=== PATIENT | female | born 1945 | race Caucasian/White ===

== ENCOUNTER 2022-03-30 10:03 | Observation (INO) ==
--- NOTE | 2022-03-30 11:09 | Emergency Department Note ---
Impression & Plan Chest pain, Hypoxia, Elevated troponin I level ED Provider Note NAME: HARLEY HERNADEZ AGE: 77 SEX: F : 1945 ARRIVES VIA: Ambulance EMS INFORMANT: Patient, EMS ED PROVIDER(S): Raul Chanel DO CHIEF COMPLAINT: Chest pain HPI: The patient is a 77-year-old female who presented to the emergency depart [facility] by ambulance for evaluation of chest pain. The patient was at rehab. She states she was not overly exerting herself but she started developing chest pain. The patient also notes shortness of breath. The patient has a history of underlying dementia but answers questions well. She states that this time she has no chest pain. She does complain of some shortness of breath. She states that she wears oxygen at night. She has a history of atrial fibrillation. She does take blood thinners every day. The patient states that she received aspirin as well as nitroglycerin prior to arrival. She denies having any fever. She does complain of a slight cough. She denies having any abdominal pain. She does complain of lower extremity swelling. She states this is not new for her. ROS: See above HPI for pertinent positives & negatives. A total of 10 systems reviewed and were otherwise negative. PAST MEDICAL HISTORY: See Below PAST SURGICAL HISTORY: See Below FAMILY HISTORY: See Below SOCIAL HISTORY: See Below HOME MEDICATIONS: See Below ALLERGIES: See Below VITALS: See Below PHYSICAL EXAMINATION: GENERAL: The patient is awake but somewhat listless appearing. She does not appear to be uncomfortable. EYES: The conjunctivae are clear. The pupils are round and reactive. EARS, NOSE, MOUTH AND THROAT: The nose is without any evidence of any deformity. NECK: The neck is nontender and supple. RESPIRATORY: Shallow respirations were noted. Rales were noted at both bases. CARDIOVASCULAR: Irregular heart sounds were noted auscultation. There is no def inite murmur. GASTROINTESTINAL: The abdomen is soft. Abdomen is nontender. MUSCULOSKELETAL/EXTREMITIES: There is no evidence of gross deformity full range of motion is noted in the hips and shoulders. SKIN: Pedal edema was noted bilaterally. Skin was warm and dry. NEUROLOGIC: Patient is awake alert and oriented x3. MEDICAL DECISION MAKING: The patient is a 77-year-old female who presented to the emergency department for an evaluation of chest discomfort. The patient was at rehab when this started. She arrived at the emergency department by ambulance. She received aspirin and nitroglycerin prior to arrival. The patient was hypoxic upon arrival. I discussed the patient's laboratory and radiographic studies with her. She was found to have an elevated troponin. I discussed her condition with the [facility]. They have agreed to evaluate the patient in the emergency department for further management and disposition. Triage Nursing notes reviewed. Prior medical records reviewed Vital Signs: reviewed and remarkable for elevated blood pressure and hypoxia. Differential diagnosis: Cardiac ischemia, aortic dissection, pulmonary embolism, pneumothorax, pneumonia, pericarditis, myocarditis, esophageal rupture, GERD, cholecystitis, pancreatitis, musculoskeletal, as well as other pathologies. ER treatment provided: See below Diagnostics interpreted by me: ECG: EKG was obtained in the emergency department. My interpretation is atrial fibrillation at 125 bpm. There were no PVCs noted. Nonspecific ST segment depressions were noted throughout. No previous tracing was available. Cardiac Monitoring: An order was placed for continuous cardiac monitoring. The monitor shows a rate of 60 bpm with atrial fibrillation. Laboratory studies: As stated above and show below. Imaging studies: See below Consultation(s): I discussed this case with Isaura who is on-call for the [facility] Past Med/Surg History Medical History (Updated 03/30/22 @ 17:20 by Raul Chanel DO) Abdominal hernia As a child, ? age 5 Atrial fibrillation CHF (congestive heart failure) Chronic kidney disease Dementia Depression Diabetes mellitus Gastroesophageal reflux Hyperlipidemia Hypertension Hypothyroid Pacemaker Seizures Surgical History (Updated 03/30/22 @ 14:05 by Britni Paredes PA-C) H/O: hysterectomy History of appendectomy Hx of tonsillectomy Family History (Updated 03/30/22 @ 14:02 by Britni Paredes PA-C) Mother Alzheimer disease Father Alzheimer disease Brother Cerebral aneurysm Social History (Updated 03/30/22 @ 14:06 by Britni Paredes PA-C) Smoking Status: Former smoker Age Started Using Tobacco: 21; Age Quit Using Tobacco: 40; Hx Alcohol Use: No Hx Substance Use: No Preferred Language: Tongan Communication Ability: Effective Discharge Door Operator Required: No Beliefs That Will Affect Care: None Current Living Situation: [facility] Current Living Situation Comment: [facility] Other Information That Helps Us Care for You: No Feels Safe at Home: Yes Safety Concerns: Feels Safe At This Time Assistive Devices: Denture - Upper, Denture - Lower, Glasses, Oxygen - Continuous and Walker Allergies Allergies Allergy/AdvReac Type Severity Reaction Status Date / Time enalaprilat [From Vasotec] Allergy Mild Redness of Verified 03/30/22 14:49 Skin Home Meds Home Medications Medication Instructions Recorded Confirmed albuterol sulfate 90 mcg/actuation 1 puff inhalation QID PRN 03/30/22 03/30/22 aerosol inhaler (ProAir HFA) Shortness Of Breath apixaban 5 mg tablet (Eliquis) 5 mg PO BID 03/30/22 03/30/22 aspirin 81 mg chewable tablet 81 mg PO DAILY 03/30/22 03/30/22 atorvastatin 40 mg tablet 40 mg PO HS 03/30/22 03/30/22 budesonide 160 mcg-glycopyr 9 2 inh inhalation BID 03/30/22 03/30/22 mcg-formot 4.8 mcg/actuation HFA inhaler (Breztri Aerosphere) calcium carb-vit D3-minerals 600 1 tab PO DAILY 03/30/22 03/30/22 mg calcium-200 unit tablet (Calcium 600 + Minerals) diltiazem HCl 180 mg 180 mg PO BID 03/30/22 03/30/22 tablet,extended release 24 hr donepezil 5 mg tablet 5 mg PO DAILY 03/30/22 03/30/22 ferrous sulfate 325 mg (65 mg 325 mg PO DAILY 03/30/22 03/30/22 iron) tablet furosemide 40 mg tablet 40 mg PO DAILY PRN leg edema 03/30/22 03/30/22 hydralazine 10 mg tablet 20 mg PO QID 03/30/22 03/30/22 insulin glargine 100 unit/mL (3 10 unit subcut QAM 03/30/22 03/30/22 mL) subcutaneous pen (Lantus Solostar U-100 Insulin) insulin lispro 100 unit/mL 1 sliding scale dose subcut 03/30/22 03/30/22 subcutaneous cartridge (Humalog USEASDIRECTD U-100 Insulin) levothyroxine 100 mcg tablet 100 mcg PO DAILY 03/30/22 03/30/22 losartan 50 mg-hydrochlorothiazide 1 tab PO DAILY 03/30/22 03/30/22 12.5 mg tablet metoprolol succinate 50 mg 25 mg PO Q8H 03/30/22 03/30/22 tablet,extended release 24 hr montelukast 10 mg tablet 10 mg PO HS 03/30/22 03/30/22 (Singulair) nitroglycerin 0.4 mg sublingual 0.4 mg sublingual DIRECTED 03/30/22 03/30/22 tablet olanzapine 2.5 mg tablet (Zyprexa) 2.5 mg PO HS 03/30/22 03/30/22 omeprazole 20 mg capsule,delayed 20 mg PO DAILY 03/30/22 03/30/22 release potassium chloride 10 mEq 10 meq PO DAILY 03/30/22 03/30/22 capsule,extended release pregabalin 50 mg capsule (Lyrica) 50 mg PO BID 03/30/22 03/30/22 sertraline 100 mg tablet (Zoloft) 100 mg PO DAILY 03/30/22 03/30/22 Results & Data (ED) Vital Signs Vital Signs - 24 hr 03/30/22 10:16 03/30/22 10:21 03/30/22 10:29 Temperature 37.0 C Temperature Source Oral Pulse Rate 112 H Pulse Rate from SpO2 Sensor Respiratory Rate 20 Respiratory Effort / Characteristics Spontaneous Short of Breath Spontaneous Short of Breath Respiratory Depth Shallow Shallow Respiratory Pattern Tachypnea Blood Pressure 162/82 H Blood Pressure Mean 108 Pulse Oximetry 94 80 L Oxygen Delivery Method Room Air Room Air Room Air Oxygen Flow Rate Sepsis Recent Fever Within 48 Hours No Sepsis New/Unexplained Change in Mental Status No Sepsis Action Taken by Nursing No Action Required Oxygen Flow Rate - Titration 4 Pulse Oximetry Post Tiitration 95 03/30/22 10:11 03/30/22 10:30 03/30/22 11:00 Temperature Temperature Source Pulse Rate 129 H 60 62 Pulse Rate from SpO2 Sensor 100 H 60 60 Respiratory Rate 18 20 16 Respiratory Effort / Characteristics Respiratory Depth Respiratory Pattern Blood Pressure 154/82 H 143/65 H Blood Pressure Mean 106 91 Pulse Oximetry 97 84 L 97 Oxygen Delivery Method Room Air Nasal Cannula Oxygen Flow Rate 4 Sepsis Recent Fever Within 48 Hours Sepsis New/Unexplained Change in Mental Status Sepsis Action Taken by Nursing Oxygen Flow Rate - Titration Pulse Oximetry Post Tiitration 03/30/22 11:30 03/30/22 12:00 03/30/22 12:30 Temperature Temperature Source Pulse Rate 60 60 62 Pulse Rate from SpO2 Sensor 61 59 L Respiratory Rate 20 17 16 Respiratory Effort / Characteristics Respiratory Depth Respiratory Pattern Blood Pressure 162/74 H 162/75 H 110/58 L Blood Pressure Mean 103 104 75 Pulse Oximetry 99 97 97 Oxygen Delivery Method Nasal Cannula Oxygen Flow Rate 3 Sepsis Recent Fever Within 48 Hours Sepsis New/Unexplained Change in Mental Status Sepsis Action Taken by Nursing Oxygen Flow Rate - Titration Pulse Oximetry Post Tiitration 03/30/22 13:00 03/30/22 13:30 03/30/22 13:30 Temperature Temperature Source Pulse Rate 60 60 Pulse Rate from SpO2 Sensor 61 59 L Respiratory Rate 16 15 Respiratory Effort / Characteristics Respiratory Depth Respiratory Pattern Blood Pressure 163/92 H 151/56 H Blood Pressure Mean 115 87 Pulse Oximetry 98 95 Oxygen Delivery Method Oxygen Flow Rate 2 Sepsis Recent Fever Within 48 Hours Sepsis New/Unexplained Change in Mental Status Sepsis Action Taken by Nursing Oxygen Flow Rate - Titration Pulse Oximetry Post Tiitration 03/30/22 14:30 Temperature Temperature Source Pulse Rate 60 Pulse Rate from SpO2 Sensor 61 Respiratory Rate 16 Respiratory Effort / Characteristics Respiratory Depth Respiratory Pattern Blood Pressure 188/85 H Blood Pressure Mean 119 Pulse Oximetry 98 Oxygen Delivery Method Oxygen Flow Rate 2 Sepsis Recent Fever Within 48 Hours Sepsis New/Unexplained Change in Mental Status Sepsis Action Taken by Nursing Oxygen Flow Rate - Titration Pulse Oximetry Post Tiitration Home Medications Current Medication List: was personally reviewed by me Laboratory Data Attestation: I reviewed the patient's lab results. Result diagrams: 03/31/22 05:38 03/31/22 05:38 Lab Results 03/30/22 03/30/22 03/30/22 Range/Units 10:15 10:15 10:15 WBC 6.26 (4.8-10.8) K/ul RBC 4.14 (3.93-5.22) M/uL Hgb 12.6 (12.0-16.0) g/dl Hct 36.8 (34.1-44.9) % MCV 88.9 D (80.0-100.0) fL MCH 30.4 (25.0-34.0) pg MCHC 34.2 (32.0-36.0) g/dL RDW Std Deviation 51.2 H (36.4-46.3) fL RDW Coeff of Jairon 15.6 H (11.5-14.5) % Plt Count 203 (130-400) K/uL MPV 11.1 (9.4-12.3) fL Immature Gran % (Auto) 0.5 % Neut % (Auto) 74.5 % Lymph % (Auto) 13.9 % Sanborn % (Auto) 8.0 % Eos % (Auto) 2.6 % Baso % (Auto) 0.5 % Neut # (Auto) 4.67 (1.4-6.5) K/uL Lymph # (Auto) 0.87 L (1.2-3.4) K/uL Sanborn # (Auto) 0.50 (0.24-0.82) K/uL Eos # (Auto) 0.16 (0-0.50) K/uL Baso # (Auto) 0.03 (0-0.2) K/uL Immature Gran # (Auto) 0.03 H (0.00-0.02) K/uL PT 12.3 H (9.0-12.0) Seconds INR 1.2 H (0.9-1.1) APTT 28.7 (21.0-31.0) Seconds PTT Ratio 1.0 VBG pH (7.36-7.41) VBG pCO2 (38-50) mmHg VBG pO2 mmHg VBG HCO3 mmol/L VBG O2 Saturation % VBG Base Excess mEq/L Sodium 142 (136-145) mmol/L Potassium 3.1 L (3.5-5.1) mmol/L Chloride 107 (98-107) mmol/L Carbon Dioxide 24 (21-32) mmol/L Anion Gap 11 (3-11) BUN 22 (6-23) mg/dl Creatinine 1.02 (0.6-1.2) mg/dl Est Cr Clr Drug Dosing 47.5 ml/min Est GFR ( Amer) 61.4 ml/min Est GFR (Non-Af Amer) 53.0 ml/min BUN/Creatinine Ratio 21.6 H (10-20) Glucose 207 H (70-99(Fasting)) mg/dl Calcium 9.9 (8.5-10.1) mg/dl Total Bilirubin 0.7 (0.2-1.0) mg/dl AST 19 (13-39) U/L ALT 13 (7-52) U/L Alkaline Phosphatase 60 (34-104) U/L Troponin I High Sens 19.1 H (0-14) pg/ml Total Protein 6.8 (6.0-8.3) gm/dl Albumin 3.6 (3.4-5.0) gm/dl Globulin 3.2 (2.5-4.0) gm/dl Albumin/Globulin Ratio 1.1 (0.9-2) Lipase 44 (11-82) U/L SARS-CoV-2, RNA, NAAT (NEGATIVE) 03/30/22 03/30/22 Range/Units 11:25 11:25 WBC (4.8-10.8) K/ul RBC (3.93-5.22) M/uL Hgb (12.0-16.0) g/dl Hct (34.1-44.9) % MCV (80.0-100.0) fL MCH (25.0-34.0) pg MCHC (32.0-36.0) g/dL RDW Std Deviation (36.4-46.3) fL RDW Coeff of Jairon (11.5-14.5) % Plt Count (130-400) K/uL MPV (9.4-12.3) fL Immature Gran % (Auto) % Neut % (Auto) % Lymph % (Auto) % Sanborn % (Auto) % Eos % (Auto) % Baso % (Auto) % Neut # (Auto) (1.4-6.5) K/uL Lymph # (Auto) (1.2-3.4) K/uL Sanborn # (Auto) (0.24-0.82) K/uL Eos # (Auto) (0-0.50) K/uL Baso # (Auto) (0-0.2) K/uL Immature Gran # (Auto) (0.00-0.02) K/uL PT (9.0-12.0) Seconds INR (0.9-1.1) APTT (21.0-31.0) Seconds PTT Ratio VBG pH 7.45 H (7.36-7.41) VBG pCO2 40 (38-50) mmHg VBG pO2 36 mmHg VBG HCO3 28 mmol/L VBG O2 Saturation 65.3 % VBG Base Excess 3.5 mEq/L Sodium (136-145) mmol/L Potassium (3.5-5.1) mmol/L Chloride (98-107) mmol/L Carbon Dioxide (21-32) mmol/L Anion Gap (3-11) BUN (6-23) mg/dl Creatinine (0.6-1.2) mg/dl Est Cr Clr Drug Dosing ml/min Est GFR ( Amer) ml/min Est GFR (Non-Af Amer) ml/min BUN/Creatinine Ratio (10-20) Glucose (70-99(Fasting)) mg/dl Calcium (8.5-10.1) mg/dl Total Bilirubin (0.2-1.0) mg/dl AST (13-39) U/L ALT (7-52) U/L Alkaline Phosphatase (34-104) U/L Troponin I High Sens (0-14) pg/ml Total Protein (6.0-8.3) gm/dl Albumin (3.4-5.0) gm/dl Globulin (2.5-4.0) gm/dl Albumin/Globulin Ratio (0.9-2) Lipase (11-82) U/L SARS-CoV-2, RNA, NAAT NEGATIVE (NEGATIVE) Administered Medications Insulin Aspart (Insulin Aspart Per Unit) 0 units SC [facility] Stop: 04/29/22 16:59 Last Admin: 03/30/22 20:20 Dose: Not Given Documented By: Admin: 03/30/22 18:06 Dose: Not Given Documented By: DENA Co-signed By: CM Discontinued Medications Hydralazine HCl (Hydralazine 10 Mg Tab) 20 mg PO NOW STA Stop: 03/30/22 16:15 Last Admin: 03/30/22 17:18 Dose: 20 mg Documented By: DENA Hydralazine HCl (Hydralazine Hcl 20 Mg/Ml Vial) 5 mg IV NOW ONE Stop: 03/30/22 20:31 Last Admin: 03/30/22 20:24 Dose: 5 mg Documented By: SUZAN Hydralazine HCl (Hydralazine Hcl 20 Mg/Ml Vial) 5 mg IV NOW ONE Stop: 03/30/22 23:26 Last Admin: 03/31/22 01:36 Dose: 5 mg Documented By: SUZAN Hydralazine HCl (Hydralazine Hcl 20 Mg/Ml Vial) Confirm Administered Dose 20 mg .ROUTE .STK-MED ONE Stop: 03/31/22 01:37 Last Increment: 03/31/22 02:00 Dose: 5 mg Documented By: SUZAN Ioversol (Optiray 320 500ml) 112 ml IV ONCE ONE Stop: 03/30/22 12:41 Last Admin: 03/30/22 12:43 Dose: 112 ml Documented By: FABIAN Metoprolol Succinate (Metoprolol Succ 25mg Ext Rel Tab) 25 mg PO NOW STA Stop: 03/30/22 16:15 Last Admin: 03/30/22 17:18 Dose: 25 mg Documented By: DENA Potassium Chloride (Potassium Chloride 10 Meq Tabcr) 10 meq PO NOW STA Stop: 03/30/22 12:16 Last Admin: 03/30/22 12:57 Dose: 10 meq Documented By: CARI Potassium Chloride (Potassium Chloride Crtab 20 Meq Tabcr) 40 meq PO NOW STA Stop: 03/30/22 14:13 Last Admin: 03/30/22 14:53 Dose: 40 meq Documented By: CARI Imaging Data Radiologist's Impression: Chest X-Ray 03/30/22 10:56 SINGLE VIEW CHEST CLINICAL HISTORY: Atypical chest pain. FINDINGS: An AP, portable, upright chest radiograph is obtained. No prior studies are available for comparison at the time of dictation. A 2-lead cardiac pacemaker is in place . The heart is mildly enlarged noting atherosclerotic calcification of the thoracic aorta. The pulmonary vasculature is noncongested. There is bibasilar scarring/atelectasis. No airspace consolidation or large pleural effusion is identified. No pneumothorax is seen. The skeletal structures are osteopenic. The bony thorax is grossly intact. IMPRESSION: 1. Cardiomegaly and cardiac pacemaker without radiographic evidence of congestive failure. 2. No airspace consolidation or large pleural effusion is identified. ACT 112: Negative or not required by law. Electronically signed by: rByson Godoy M.D. 03/30/2022 11:21 AM Chest CTA 03/30/22 12:15 CT ANGIOGRAM OF THE CHEST CLINICAL HISTORY: Atypical chest pain. COMPARISON STUDY: Chest x-ray dated 03/30/2022. TECHNIQUE: Following the IV administration of 112 cc of Optiray 320, CT angiogram of the chest was performed from the upper abdomen to the thoracic inlet utilizing the pulmonary embolus protocol. Images are reviewed in the axial, sagittal, and coronal planes. 3-D MIPS images are created and assessed. IV contrast was administered without complication. A dose lowering technique was utilized adhering to the principles of ALARA. CT DOSE: 755.19 mGy.cm FINDINGS: Thyroid: Mildly enlarged and heterogeneous. Thoracic aorta: There is atherosclerotic calcification of the thoracic aorta, which is normal in caliber and demonstrates standard 3-vessel arch anatomy. No dissection is seen. Pulmonary vasculature: The main pulmonary arteries are dilated suggesting pulmonary hypertension. There are no filling defects identified in main, lobar, or segmental pulmonary branches to suggest pulmonary embolus. Heart: A cardiac pacemaker is present in the left chest wall. The heart is enlarged and without pericardial effusion. The coronary arteries are densely calcified. Lungs and pleural spaces: Evaluation of the lung parenchyma is degraded by motion artifact. Emphysema is noted. The trachea and central airways are clear. Scarring/atelectasis at the lung bases. Airspace consolidation consistent with pneumonia or pleural effusion is identified. Mediastinum: There is no mediastinal lymphadenopathy. Ana Lilia: Clear. Axillae: There is no axillary lymphadenopathy. Upper abdomen: Partially visualized upper abdominal viscera is within normal limits. Skeletal structures: The skeletal structures are osteopenic. Degenerative change and hyperkyphosis is noted in the thoracic spine. There are chronic-appearing compression deformities of T2, T3, and T4. No lytic or blastic bony lesions are seen. IMPRESSION: 1. There is no evidence of pulmonary embolus in the main, lobar, or segmental pulmonary arteries. 2. Cardiomegaly and cardiac pacemaker. 3. Emphysema. 4. No airspace consolidation or pleural effusion is identified. 5. Additional findings as above. ACT 112: Negative or not required by law. Electronically signed by: Bryson Godoy M.D. 03/30/2022 12:56 PM Discharge Plan Visit Data Chief Complaint: Cardiac Assessment ED Provider: Raul Chanel Discharge Problem: Chest pain, Hypoxia, Elevated troponin I level Patient Disposition: Admitted As Inpatient Discharge Instructions Interventions: ED Discharge Assessment Last Done: 03/30/22 15:42 : Chest pain Qualifiers: Chest pain type: unspecified Qualified Code(s): R07.9 - Chest pain, unspecified
[2022-03-30 11:13] LABS: Basophils # (auto) 0.03 K/uL (0-0.2); Basophils % (auto) 0.5 %; Eosinophils # (auto) 0.16 K/uL (0-0.50); Eosinophils % (auto) 2.6 %; Hematocrit (blood only) 36.8 % (34.1-44.9); Hemoglobin 12.6 g/dl (12.0-16.0); Immature Granulocytes # (auto) 0.03 K/uL (0.00-0.02); Immature Granulocytes % (auto) 0.5 %; Lymphocytes # (auto) 0.87 K/uL (1.2-3.4); Lymphocytes % (auto) 13.9 %; Mean Corpuscular Hemoglobin 30.4 pg (25.0-34.0); Mean Corpuscular Hgb Conc 34.2 g/dL (32.0-36.0); Mean Corpuscular Volume 88.9 fL (80.0-100.0); Mean Platelet Volume 11.1 fL (9.4-12.3); Neutrophils # (auto) 4.67 K/uL (1.4-6.5); Neutrophils % (auto) 74.5 %; Platelet Count 203 K/uL (130-400); RDW Coefficient of Variation 15.6 % (11.5-14.5); RDW Standard Deviation 51.2 fL (36.4-46.3); Red Blood Count 4.14 M/uL (3.93-5.22); White Blood Count 6.26 K/ul (4.8-10.8)
--- NOTE | 2022-03-30 11:22 | XRay Report ---
SINGLE VIEW CHEST CLINICAL HISTORY: Atypical chest pain. FINDINGS: An AP, portable, upright chest radiograph is obtained. No prior studies are available for c omparison at the time of dictation. A 2-lead cardiac pacemaker is in place . The heart is mildly enla rged noting atherosclerotic calcification of the thoracic aorta. The pulmonary vasculature is noncong ested. There is bibasilar scarring/atelectasis. No airspace consolidation or large pleural effusion i s identified. No pneumothorax is seen. The skeletal structures are osteopenic. The bony thorax is kel ssly intact. IMPRESSION: 1. Cardiomegaly and cardiac pacemaker without radiographic evidence of congestive failure. 2. No airspace consolidation or large pleural effusion is identified. ACT 112: Negative or not required by law. Electronically signed by: Bryson Godoy M.D. 03/30/2022 11:21 AM
[2022-03-30 11:30] LABS: Troponin I High Sensitivity 19.1 pg/ml (0-14)
[2022-03-30 11:33] LABS: Albumin Globulin Ratio 1.1 (0.9-2); Albumin Level 3.6 gm/dl (3.4-5.0); BUN Creatinine Ratio 21.6 (10-20); Bilirubin,Total 0.7 mg/dl (0.2-1.0); Calcium 9.9 mg/dl (8.5-10.1); Creatinine Clr Calc Pharmacy 47.5 ml/min; Est GFR (African American) 61.4 ml/min; Globulin 3.2 gm/dl (2.5-4.0); Potassium 3.1 mmol/L (3.5-5.1); Total Protein 6.8 gm/dl (6.0-8.3)
[2022-03-30 11:34] LABS: Base Excess VBG 3.5 mEq/L; HCO3 VBG 28 mmol/L; Oxygen Saturation VBG 65.3 %; PCO2 VBG 40 mmHg (38-50); PO2 VBG 36 mmHg; pH VBG 7.45 (7.36-7.41)
[2022-03-30 11:36] LABS: INR 1.2 (0.9-1.1); Partial Thromboplastin Time 28.7 Seconds (21.0-31.0); Prothrombin Time 12.3 Seconds (9.0-12.0)
[2022-03-30] MEDS ORDERED: POTASSIUM CHLORIDE 10 MEQ TABCR PO STA (12:15)
[2022-03-30] MEDS ORDERED: OPTIRAY 320 500ml IV ONE (12:40)
--- NOTE | 2022-03-30 12:57 | CT Scan Report ---
CT ANGIOGRAM OF THE CHEST CLINICAL HISTORY: Atypical chest pain. COMPARISON STUDY: Chest x-ray dated 03/30/2022. TECHNIQUE: Following the IV administration of 112 cc of Optiray 320, CT angiogram of the chest was pe rformed from the upper abdomen to the thoracic inlet utilizing the pulmonary embolus protocol. Images are reviewed in the axial, sagittal, and coronal planes. 3-D MIPS images are created and assessed. I V contrast was administered without complication. A dose lowering technique was utilized adhering to the principles of ALARA. CT DOSE: 755.19 mGy.cm FINDINGS: Thyroid: Mildly enlarged and heterogeneous. Thoracic aorta: There is atherosclerotic calcification of the thoracic aorta, which is normal in mehreen angelito and demonstrates standard 3-vessel arch anatomy. No dissection is seen. Pulmonary vasculature: The main pulmonary arteries are dilated suggesting pulmonary hypertension. The re are no filling defects identified in main, lobar, or segmental pulmonary branches to suggest pulmo nary embolus. Heart: A cardiac pacemaker is present in the left chest wall. The heart is enlarged and without peric ardial effusion. The coronary arteries are densely calcified. Lungs and pleural spaces: Evaluation of the lung parenchyma is degraded by motion artifact. Emphysema is noted. The trachea and central airways are clear. Scarring/atelectasis at the lung bases. Airspac e consolidation consistent with pneumonia or pleural effusion is identified. Mediastinum: There is no mediastinal lymphadenopathy. Ana Lilia: Clear. Axillae: There is no axillary lymphadenopathy. Upper abdomen: Partially visualized upper abdominal viscera is within normal limits. Skeletal structures: The skeletal structures are osteopenic. Degenerative change and hyperkyphosis is noted in the thoracic spine. There are chronic-appearing compression deformities of T2, T3, and T4. No lytic or blastic bony lesions are seen. IMPRESSION: 1. There is no evidence of pulmonary embolus in the main, lobar, or segmental pulmonary arteries. 2. Cardiomegaly and cardiac pacemaker. 3. Emphysema. 4. No airspace consolidation or pleural effusion is identified. 5. Additional findings as above. ACT 112: Negative or not required by law. Electronically signed by: Bryson Godoy M.D. 03/30/2022 12:56 PM
--- NOTE | 2022-03-30 13:50 | History & Physical Report ---
Date of Service March 30, 2022 Assessment & Plan (1) Chest pain: (2) Hypokalemia: (3) Pacemaker: (4) Atrial fibrillation: (5) CHF (congestive heart failure): (6) Hypertension: (7) Hyperlipidemia: Plan: - Admit to tele - Trend cardiac biomarkers, initial set was 19.1, currently without any chest complaints or symptoms - EKG reviewed as above - initially was in afib with RVR? Appears paced on monitor with HR in the mid 60s at time of my initial evaluation - Check 2 D echo - HIM requesting records from [facility] for most recent hospitalization as well as cardiology notes -Appears to be euvolemic, per nursing personnel at her bedside has not required recent Lasix administration, takes only as needed for leg edema -Continue on Cardizem ER, hydralazine, losartan/HCTZ, metoprolol succinate -Anticoagulated on Eliquis for A. fib -Hypokalemia was found at 3.1, replaced p.o. - PT/OT consulted -CT of the chest is negative for any PE -Pacemaker noted -Recent chest wall hematoma evacuation occurred on 03/16/2022, measured 4 x 1 x 3 cm large, at this time unknown etiology, requesting records as above (8) Diabetes mellitus: Plan: -Heart healthy/diabetic diet, Lantus 10 units every morning continued, ISS with Accu-Cheks ACHS -last A1c is 6.8 on 03/23/2022 [facility] -Check lipid panel for completeness (9) Chronic kidney disease: Plan: -Records indicate stage III CKD, BUN 22, creatinine 1.01 (10) Gastroesophageal reflux: Plan: -History of hiatal hernia, continue omeprazole, possible indigestion-like symptoms being referred into the chest? Continue cardiac work-up as above (11) Depression: Plan: -May continue Zoloft 100 mg daily (12) Dementia: Plan: -Mild to moderate with history of auditory and visual hallucinations, currently no hallucinations noted, pt is alert, awake oriented x3. -Continue Aricept 5 mg daily -No history of psychotic features or behavioral disturbances, if develops then consider psychiatry consultation (13) Hypothyroid: Plan: - Continue levothyroxine, will add on TSH and free T4 with hx of afib DVT ppx: - teds, scds CODE: DNR/DNI- discussed with the patient at bedside Dispo: From home, likely to remain in the hospital x 1-2 days History of Present Illness Chief Complaint: Chest pain [facility] This is a 77 yo F with PMhx of HTN, chronic CHF, s/p pacemaker insertion, atrial fibrillation on Eliquis, hx of 3 cardiac stents around age 40, hx of smoking 1ppd and quit when cardiac stents were placed, DM II on insulin, neuropathy, hiatal hernia, hypothyroidism, CKD stage III, seizure disorder, auditory and visual hallucinations. Pt was recently hospitalized at [facility] from Mar 06 to Mar 13 2022 for altered mental status and confusion with worsening auditory and visual hallucinations. While admitted, she was found to have a chest hematoma while on eliquis and underwent evacuation of this hematoma on 03/16 which measured approximately 4 x 1 x 3 cm, and was discharged to [facility] for rehab. Prior to this hospitalization she was living at home, in [place]. This morning she was participating in PT for a few minutes and then felt chest heaviness, which she has previously felt before whenever her heart goes into afib. Once in EMS, she was administered nitro and full dose aspirin. Currently she does not have any chest pain or discomfort. She states she previously wore O2 HS, but not during her hospitalization and at [facility] has not needed it. Pt has issues with bloating secondary to her hiatal hernia. She admits to having some burning like indigestion this morning along with chest discomfort. Since having aspirin and nitroglycerine she feels better and pain is relieved. She feels this is just like having afib before and previously has "breathed through it" She moves her bowels every other day and denies urinary complaints. She walks with use of a walker. Pt recalls taking her medications today. Discussed with nursing at [facility]. Allergies Allergy/AdvReac Type Severity Reaction Status Date / Time enalaprilat [From Vasotec] Allergy Mild Redness of Verified 03/30/22 14:49 Skin Home Medications Medication Instructions Recorded Confirmed Type albuterol sulfate 90 mcg/actuation 1 puff inhalation QID PRN 03/30/22 03/30/22 History aerosol inhaler (ProAir HFA) Shortness Of Breath apixaban 5 mg tablet (Eliquis) 5 mg PO BID 03/30/22 03/30/22 History aspirin 81 mg chewable tablet 81 mg PO DAILY 03/30/22 03/30/22 History atorvastatin 40 mg tablet 40 mg PO HS 03/30/22 03/30/22 History budesonide 160 mcg-glycopyr 9 2 inh inhalation BID 03/30/22 03/30/22 History mcg-formot 4.8 mcg/actuation HFA inhaler (Breztri Aerosphere) calcium carb-vit D3-minerals 600 1 tab PO DAILY 03/30/22 03/30/22 History mg calcium-200 unit tablet (Calcium 600 + Minerals) diltiazem HCl 180 mg 180 mg PO BID 03/30/22 03/30/22 History tablet,extended release 24 hr donepezil 5 mg tablet 5 mg PO DAILY 03/30/22 03/30/22 History ferrous sulfate 325 mg (65 mg 325 mg PO DAILY 03/30/22 03/30/22 History iron) tablet furosemide 40 mg tablet 40 mg PO DAILY PRN leg edema 03/30/22 03/30/22 History hydralazine 10 mg tablet 20 mg PO QID 03/30/22 03/30/22 History insulin glargine 100 unit/mL (3 10 unit subcut QAM 03/30/22 03/30/22 History mL) subcutaneous pen (Lantus Solostar U-100 Insulin) insulin lispro 100 unit/mL 1 sliding scale dose subcut 03/30/22 03/30/22 History subcutaneous cartridge (Humalog USEASDIRECTD U-100 Insulin) levothyroxine 100 mcg tablet 100 mcg PO DAILY 03/30/22 03/30/22 History losartan 50 mg-hydrochlorothiazide 1 tab PO DAILY 03/30/22 03/30/22 History 12.5 mg tablet metoprolol succinate 50 mg 25 mg PO Q8H 03/30/22 03/30/22 History tablet,extended release 24 hr montelukast 10 mg tablet 10 mg PO HS 03/30/22 03/30/22 History (Singulair) nitroglycerin 0.4 mg sublingual 0.4 mg sublingual DIRECTED 03/30/22 03/30/22 History tablet olanzapine 2.5 mg tablet (Zyprexa) 2.5 mg PO HS 03/30/22 03/30/22 History omeprazole 20 mg capsule,delayed 20 mg PO DAILY 03/30/22 03/30/22 History release potassium chloride 10 mEq 10 meq PO DAILY 03/30/22 03/30/22 History capsule,extended release pregabalin 50 mg capsule (Lyrica) 50 mg PO BID 03/30/22 03/30/22 History sertraline 100 mg tablet (Zoloft) 100 mg PO DAILY 03/30/22 03/30/22 History Past Med/Surg History Medical History (Updated 03/30/22 @ 17:20 by Raul Chanel DO) Abdominal hernia As a child, ? age 5 Atrial fibrillation CHF (congestive heart failure) Chronic kidney disease Dementia Depression Diabetes mellitus Gastroesophageal reflux Hyperlipidemia Hypertension Hypothyroid Pacemaker Seizures Surgical History (Updated 03/30/22 @ 14:05 by Britni Paredes PA-C) H/O: hysterectomy History of appendectomy Hx of tonsillectomy Family History (Updated 03/30/22 @ 14:02 by Britni Paredes PA-C) Mother Alzheimer disease Father Alzheimer disease Brother Cerebral aneurysm Social History (Updated 03/30/22 @ 14:06 by Britni Paredes PA-C) Smoking Status: Former smoker Age Started Using Tobacco: 21; Age Quit Using Tobacco: 40; Hx Alcohol Use: No Hx Substance Use: No Preferred Language: Yakut Communication Ability: Effective Fresh Work Wrapper Layer Required: No Beliefs That Will Affect Care: None Current Living Situation: Residential Current Living Situation Comment: [facility] Other Information That Helps Us Care for You: No Feels Safe at Home: Yes Safety Concerns: Feels Safe At This Time Assistive Devices: Denture - Upper, Denture - Lower, Glasses, Oxygen - Continuous and Walker Review of Systems Review of Systems: Constitutional: No fever, sweats or chills Eyes: No diplopia, no worsening or blurred vision ENT: normal hearing, no trouble swallowing Respiratory: No cough, sputum, dyspnea at rest or on exertion Cardiovascular: No chest pain, tightness or palpitations Abdomen: No pain, nausea, vomiting, diarrhea or constipation Musculoskeletal: No joint pain, calf pain, swelling Neurologic: No weakness, numbness/tingling, or balance problems Psychiatric: No anxiety or depression Skin: No rash or itch Physical Exam Physical Exam: General: awake, alert, no apparent distress, + knows she is in a hospital, initially thought she was in [facility], Head: Normocephalic, atraumatic ENT: PERRL, EOMI, no pharyngeal exudate, mucous membranes moist Chest: Clear to auscultation, on room air, no adventitious breath sounds, chest wall scar healing, no surrounding signs of infection Cardiac: +Paced, some intermittent PVCs, HR in mid 60s at bedside, no murmur, no JVD, normal peripheral pulses, good capillary refill Abdominal: NABS x 4 quadrants, soft, nondistended, nontender to palpation, no rebound or guarding Extremities: + Dry skin Normal inspection, no peripheral edema or erythema, calfs nontender to palpation Psych: Normal mood and affect Neuro: AAO x 3, strength intact bilaterally and rated 4/5, no motor deficits, speech is clear, no peripheral sensory deficits Results & Data Results & Data ([facility]) Vital Signs (Past 12 Hours) Vital Signs Temp Pulse Resp BP Pulse Ox O2 Del Method O2 Flow Rate 03/30/22 13:00 60 16 163/92 H 98 2 03/30/22 12:30 62 16 110/58 L 97 03/30/22 12:00 60 17 162/75 H 97 03/30/22 11:30 60 20 162/74 H 99 Nasal Cannula 3 03/30/22 11:00 62 16 143/65 H 97 Nasal Cannula 4 03/30/22 10:30 60 20 154/82 H 84 L Room Air 03/30/22 10:11 129 H 18 97 03/30/22 10:29 80 L Room Air 03/30/22 10:21 37.0 C 112 H 20 162/82 H 94 Room Air 03/30/22 10:16 Room Air Laboratory Results 03/30/22 03/30/22 03/30/22 11:25 11:25 10:15 WBC RBC Hgb Hct MCV MCH MCHC RDW Std Deviation RDW Coeff of Jairon Plt Count MPV Immature Gran % (Auto) Neut % (Auto) Lymph % (Auto) Dade % (Auto) Eos % (Auto) Baso % (Auto) Neut # (Auto) Lymph # (Auto) Dade # (Auto) Eos # (Auto) Baso # (Auto) Immature Gran # (Auto) PT INR APTT PTT Ratio VBG pH 7.45 H VBG pCO2 40 VBG pO2 36 VBG HCO3 28 VBG O2 Saturation 65.3 VBG Base Excess 3.5 Sodium 142 Potassium 3.1 L Chloride 107 Carbon Dioxide 24 Anion Gap 11 BUN 22 Creatinine 1.02 Est Cr Clr Drug Dosing 47.5 Est GFR ( Amer) 61.4 Est GFR (Non-Af Amer) 53.0 BUN/Creatinine Ratio 21.6 H Glucose 207 H Calcium 9.9 Total Bilirubin 0.7 AST 19 ALT 13 Alkaline Phosphatase 60 Troponin I High Sens 19.1 H Total Protein 6.8 Albumin 3.6 Globulin 3.2 Albumin/Globulin Ratio 1.1 Lipase 44 SARS-CoV-2, RNA, NAAT NEGATIVE 03/30/22 03/30/22 10:15 10:15 WBC 6.26 RBC 4.14 Hgb 12.6 Hct 36.8 MCV 88.9 D MCH 30.4 MCHC 34.2 RDW Std Deviation 51.2 H RDW Coeff of Jairon 15.6 H Plt Count 203 MPV 11.1 Immature Gran % (Auto) 0.5 Neut % (Auto) 74.5 Lymph % (Auto) 13.9 Dade % (Auto) 8.0 Eos % (Auto) 2.6 Baso % (Auto) 0.5 Neut # (Auto) 4.67 Lymph # (Auto) 0.87 L Dade # (Auto) 0.50 Eos # (Auto) 0.16 Baso # (Auto) 0.03 Immature Gran # (Auto) 0.03 H PT 12.3 H INR 1.2 H APTT 28.7 PTT Ratio 1.0 VBG pH VBG pCO2 VBG pO2 VBG HCO3 VBG O2 Saturation VBG Base Excess Sodium Potassium Chloride Carbon Dioxide Anion Gap BUN Creatinine Est Cr Clr Drug Dosing Est GFR ( Amer) Est GFR (Non-Af Amer) BUN/Creatinine Ratio Glucose Calcium Total Bilirubin AST ALT Alkaline Phosphatase Troponin I High Sens Total Protein Albumin Globulin Albumin/Globulin Ratio Lipase SARS-CoV-2, RNA, NAAT Diagnostic Findings Chest X-Ray 03/30/22 10:56 SINGLE VIEW CHEST CLINICAL HISTORY: Atypical chest pain. FINDINGS: An AP, portable, upright chest radiograph is obtained. No prior studies are available for comparison at the time of dictation. A 2-lead cardiac pacemaker is in place . The heart is mildly enlarged noting atherosclerotic calcification of the thoracic aorta. The pulmonary vasculature is noncongested. There is bibasilar scarring/atelectasis. No airspace consolidation or large pleural effusion is identified. No pneumothorax is seen. The skeletal structures are osteopenic. The bony thorax is grossly intact. IMPRESSION: 1. Cardiomegaly and cardiac pacemaker without radiographic evidence of congestive failure. 2. No airspace consolidation or large pleural effusion is identified. ACT 112: Negative or not required by law. Electronically signed by: Bryson Godoy M.D. 03/30/2022 11:21 AM Chest CTA 03/30/22 12:15 CT ANGIOGRAM OF THE CHEST CLINICAL HISTORY: Atypical chest pain. COMPARISON STUDY: Chest x-ray dated 03/30/2022. TECHNIQUE: Following the IV administration of 112 cc of Optiray 320, CT angiogram of the chest was performed from the upper abdomen to the thoracic inlet utilizing the pulmonary embolus protocol. Images are reviewed in the axial, sagittal, and coronal planes. 3-D MIPS images are created and assessed. IV contrast was administered without complication. A dose lowering technique was utilized adhering to the principles of ALARA. CT DOSE: 755.19 mGy.cm FINDINGS: Thyroid: Mildly enlarged and heterogeneous. Thoracic aorta: There is atherosclerotic calcification of the thoracic aorta, which is normal in caliber and demonstrates standard 3-vessel arch anatomy. No dissection is seen. Pulmonary vasculature: The main pulmonary arteries are dilated suggesting pulmonary hypertension. There are no filling defects identified in main, lobar, or segmental pulmonary branches to suggest pulmonary embolus. Heart: A cardiac pacemaker is present in the left chest wall. The heart is enlarged and without pericardial effusion. The coronary arteries are densely calcified. Lungs and pleural spaces: Evaluation of the lung parenchyma is degraded by motion artifact. Emphysema is noted. The trachea and central airways are clear. Scarring/atelectasis at the lung bases. Airspace consolidation consistent with pneumonia or pleural effusion is identified. Mediastinum: There is no mediastinal lymphadenopathy. Ana Lilia: Clear. Axillae: There is no axillary lymphadenopathy. Upper abdomen: Partially visualized upper abdominal viscera is within normal limits. Skeletal structures: The skeletal structures are osteopenic. Degenerative change and hyperkyphosis is noted in the thoracic spine. There are chronic-appearing compression deformities of T2, T3, and T4. No lytic or blastic bony lesions are seen. IMPRESSION: 1. There is no evidence of pulmonary embolus in the main, lobar, or segmental pulmonary arteries. 2. Cardiomegaly and cardiac pacemaker. 3. Emphysema. 4. No airspace consolidation or pleural effusion is identified. 5. Additional findings as above. ACT 112: Negative or not required by law. Electronically signed by: Bryson Godoy M.D. 03/30/2022 12:56 PM ECG Additional Comments: 30-MAR-2022 10:13:19 [facility]-EDSTAT ROUTINE RETRIEVAL Poor data quality, interpretation may be adversely affected Atrial fibrillation with rapid ventricular response Nonspecific ST abnormality Abnormal ECG No previous ECGs available 25mm/s10mm/[id number] 241CID: [id number] by: REFERRED SELF Unconfirmed Vent. rate 125 BPM NM interval * ms QRS duration 78 ms QT/QTc 326/470 ms Code Status & VTE Plan Code Status DNR/DNI - discussed with the patient at bedside. She does not want life prolonging measures or extraordinary efforts. Pt would like to in peace and with dignity if her heart stops. She does not want intubation as she saw multiple loved ones on ventilators at the end of life. Supervising Physician Co-Signing Physician Notes Pt seen and examined by me, care coordinated w/ G. KT Paredes, pls refer to her note above for further detail. Pt is a 77 yo F w/HTN, chronic CHF, s/p pacemaker insertion, atrial fibrillation on Eliquis, hx of 3 cardiac stents around age 40, DM II on insulin, neuropathy, hiatal hernia, hypothyroidism, CKD stage III, seizure disorder, auditory and visual hallucinations. Pt was recently hospitalized at [facility] from Mar 06 to Mar 13 2022 and while admitted, she was found to have a chest hematoma while on eliquis and underwent evacuation of this hematoma on 03/16. She was discharged to [facility] for rehab. Prior to this hospitalization she was living at home, in [place]. This morning she was participating in PT for a few minutes and then felt chest heaviness. Once in EMS, she was administered nitro and full dose aspirin. In the ED she was found to have A. fib with RVR. Currently she does not have any chest pain or discomfort. Heart rate down in the 60s. However blood pressure elevated and her home meds were resumed. In the ED she underwent CT PE and ruled out PE. She is currently laying in bed, in no acute distress. However she does report feeling tired. She is able to answer most questions appropriately. She is moving extremities spontaneously, skin is warm and dry. Heart sounds seem regular, lungs are clear to auscultation. Abdomen soft nontender distended. No significant lower extremity edema noted. Will monitor patient on telemetry. Resume home medications and monitor vital signs, blood pressure as mentioned elevated. Will obtain records from recent hospitalization in [facility] and will discuss further with cardiology. MD Ronnie
[2022-03-30] MEDS ORDERED: POTASSIUM CHLORIDE CRTAB 20 MEQ TABCR PO STA (14:12)
[2022-03-30] MEDS ORDERED: METOPROLOL SUCC 25MG EXT REL TAB PO STA (16:14)
[2022-03-30] MEDS ORDERED: hydrALAZINE 10 MG TAB PO STA (16:14)
[2022-03-30] MEDS ORDERED: ONDANSETRON INJ 2 MG/ML 2 ML VIAL IV PRN (16:38)
[2022-03-30] MEDS ORDERED: GLUCOSE 10 TAB/TUBE PO PRN (16:38)
[2022-03-30] MEDS ORDERED: GLUCAGON FOR INJ 1 MG VIAL SQ PRN (16:38)
[2022-03-30] MEDS ORDERED: ACETAMINOPHEN 325 MG TAB PO PRN (16:38)
[2022-03-30] MEDS ORDERED: CARBOHYDRATES FOR HYPOGLYCEMIA PO PRN (16:38)
[2022-03-30] MEDS ORDERED: GLUCOSE 40% GEL 15 GM TUBE PO PRN (16:38)
[2022-03-30] MEDS ORDERED: DEXTROSE 50% 50 ML SYRINGE IV PRN (16:38)
[2022-03-30] MEDS: INSULIN ASPART PER UNIT SC SCH ×2 (18:06→20:20)
[2022-03-30] MEDS ORDERED: hydrALAZINE HCL 20 MG/ML VIAL IV ONE ×2 (20:30→23:25)
[2022-03-31] MEDS ORDERED: hydrALAZINE HCL 20 MG/ML VIAL ONE (01:36)
[2022-03-31 05:58] LABS: Hematocrit (blood only) 36.1 % (34.1-44.9); Mean Corpuscular Hemoglobin 30.4 pg (25.0-34.0); Mean Corpuscular Hgb Conc 33.2 g/dL (32.0-36.0); Mean Corpuscular Volume 91.4 fL (80.0-100.0); Mean Platelet Volume 10.3 fL (9.4-12.3); Platelet Count 183 K/uL (130-400); RDW Coefficient of Variation 15.8 % (11.5-14.5); RDW Standard Deviation 53.1 fL (36.4-46.3); Red Blood Count 3.95 M/uL (3.93-5.22); White Blood Count 5.32 K/ul (4.8-10.8)
[2022-03-31 06:08] LABS: INR 1.1 (0.9-1.1); Prothrombin Time 12.1 Seconds (9.0-12.0)
[2022-03-31 06:31] LABS: BUN Creatinine Ratio 18.3 (10-20); Calcium 9.6 mg/dl (8.5-10.1); Chol HDL Ratio 4.3 (0-5); Creatinine Clr Calc Pharmacy 45.1 ml/min; Est GFR (Non-African American) 51.8 ml/min; Magnesium 1.9 mg/dl (1.7-2.4); Phosphorus 3.4 mg/dl (2.5-4.9); Potassium 3.6 mmol/L (3.5-5.1)
[2022-03-31 07:53] LABS: Estimated Average Glucose 140 mg/dl; Hemoglobin A1C 6.5 % (4.5-5.6)
[2022-03-31] MEDS ORDERED: POTASSIUM CHLORIDE CRTAB 20 MEQ TABCR PO STA (07:59)
--- NOTE | 2022-03-31 07:59 | Hospitalist Progress Note ---
Date of Service March 31, 2022 Assessment & Plan (1) Chest pain: (2) Hypokalemia: (3) Pacemaker: (4) Atrial fibrillation: (5) CHF (congestive heart failure): (6) Hypertension: (7) Hyperlipidemia: Plan: - Admit to tele - Trend cardiac biomarkers, initial set was 19.1, currently without any chest complaints or symptoms - EKG reviewed as above - initially was in afib with RVR? Appears paced on monitor with HR in the mid 60s at time of my initial evaluation - Check 2 D echo - HIM requesting records from [facility] for most recent hospitalization as well as cardiology notes -Appears to be euvolemic, per nursing personnel at her bedside has not required recent Lasix administration, takes only as needed for leg edema -Continue on Cardizem ER, hydralazine, losartan/HCTZ, metoprolol succinate -Anticoagulated on Eliquis for A. fib -Hypokalemia was found at 3.1, replaced p.o. - PT/OT consulted -CT of the chest is negative for any PE -Pacemaker noted -Recent chest wall hematoma evacuation occurred on 03/16/2022, measured 4 x 1 x 3 cm large, at this time unknown etiology, requesting records as above Cardiology was consulted, increase her metoprolol succinate to 50 mg twice a day. Continue extensive antihypertensive therapy with anticoagulation with Eliquis. Patient was hypokalemic on admission, and spironolactone 12.5 mg was also added. (8) Diabetes mellitus: Plan: -Heart healthy/diabetic diet, Lantus 10 units every morning continued, ISS with Accu-Cheks ACHS -[facility] A1c [facility] 6.[facility] -Check lipid panel for completeness (9) Chronic kidney disease: Plan: -Records indicate stage III CKD, BUN 22, creatinine 1.01 (10) Gastroesophageal reflux: Plan: -History of hiatal hernia, continue omeprazole, possible indigestion-like symptoms being referred into the chest? Continue cardiac work-up as above (11) Depression: Plan: -May continue Zoloft 100 mg daily (12) Dementia: Plan: -Mild to moderate with history of auditory and visual hallucinations, currently no hallucinations noted, pt is alert, awake oriented x3. -Continue Aricept 5 mg daily -No history of psychotic features or behavioral disturbances, if develops then consider psychiatry consultation (13) Hypothyroid: Plan: - Continue levothyroxine, will add on TSH and free T4 with hx of afib DVT ppx: - teds, scds CODE: DNR/DNI- discussed with the patient at bedside Dispo: From home, likely to remain in the hospital x 1-2 days Admission and Anticipated Discharge Date Admission Date: March 30, 2022 Subjective Pt seen in follow up of chest pain, Afib w/ RVR Now converted to sinus rhythm She is sitting up in bed, in no distress, reading a book Yesterday she was quite tired, and was not able to provide much history She feels much better today Denies any chest pain or shortness of breath Denies fevers chills abdominal pain, nausea or vomiting Review of Systems Review of Systems: All systems reviewed & are unremarkable except as noted in Subjective Physical Exam Physical Exam: General: awake, alert, in NAD Head: Normocephalic, atraumatic ENT: PERRL, EOMI Chest: Clear to auscultation, on room air, no adventitious breath sounds, chest wall scar healing, no surrounding signs of infection Cardiac: RRR, no murmur, no JVD Abdominal: NABS x 4 quadrants, soft, nondistended, nontender to palpation Extremities: + Dry skin Normal inspection, no peripheral edema or erythema Psych: Normal mood and affect Neuro: Awake and alert, able to answer questions appropriately, speech fluent, extremities Results & Data Results & Data ([facility]) Vital Signs (Past 12 Hours) Vital Signs Temp Pulse Pulse Resp BP BP Pulse Ox 03/31/22 03:22 36.7 C 60 15 162/70 H 93 03/30/22 23:29 64 03/30/22 23:19 36.4 C 60 15 186/72 H 92 03/30/22 21:14 65 18 121/55 L 96 O2 Del Method 03/31/22 03:22 Room Air 03/30/22 23:29 03/30/22 23:19 Room Air 03/30/22 21:14 Room Air Laboratory Results 03/31/22 03/31/22 03/31/22 Range/Units 05:38 05:38 05:38 WBC (4.8-10.8) K/ul RBC (3.93-5.22) M/uL Hgb (12.0-16.0) g/dl Hct (34.1-44.9) % MCV (80.0-100.0) fL MCH (25.0-34.0) pg MCHC (32.0-36.0) g/dL RDW Std Deviation (36.4-46.3) fL RDW Coeff of Jairon (11.5-14.5) % Plt Count (130-400) K/uL MPV (9.4-12.3) fL Immature Gran % (Auto) % Neut % (Auto) % Lymph % (Auto) % [place] % (Auto) % Eos % (Auto) % Baso % (Auto) % Neut # (Auto) (1.4-6.5) K/uL Lymph # (Auto) (1.2-3.4) K/uL [place] # (Auto) (0.24-0.82) K/uL Eos # (Auto) (0-0.50) K/uL Baso # (Auto) (0-0.2) K/uL Immature Gran # (Auto) (0.00-0.02) K/uL PT 12.1 H (9.0-12.0) Seconds INR 1.1 (0.9-1.1) APTT (21.0-31.0) Seconds PTT Ratio VBG pH (7.36-7.41) VBG pCO2 (38-50) mmHg VBG pO2 mmHg VBG HCO3 mmol/L VBG O2 Saturation % VBG Base Excess mEq/L Sodium 141 (136-145) mmol/L Potassium 3.6 (3.5-5.1) mmol/L Chloride 108 H (98-107) mmol/L Carbon Dioxide 26 (21-32) mmol/L Anion Gap 7 (3-11) BUN 19 (6-23) mg/dl Creatinine 1.04 (0.6-1.2) mg/dl Est Cr Clr Drug Dosing 45.1 ml/min Est GFR ( Amer) 60.0 ml/min Est GFR (Non-Af Amer) 51.8 ml/min BUN/Creatinine Ratio 18.3 (10-20) Glucose 136 H (70-99(Fasting)) mg/dl POC Glucose (70-99) mg/dl Estimat Average Glucose 140 mg/dl Hemoglobin A1c 6.5 H (4.5-5.6) % Calcium 9.6 (8.5-10.1) mg/dl Phosphorus 3.4 (2.5-4.9) mg/dl Magnesium 1.9 (1.7-2.4) mg/dl Total Bilirubin (0.2-1.0) mg/dl AST (13-39) U/L ALT (7-52) U/L Alkaline Phosphatase (34-104) U/L Troponin I High Sens (0-14) pg/ml Total Protein (6.0-8.3) gm/dl Albumin (3.4-5.0) gm/dl Globulin (2.5-4.0) gm/dl Albumin/Globulin Ratio (0.9-2) Triglycerides 186 H (0-150) mg/dl Cholesterol 156 (0-200) mg/dl LDL Cholesterol, Calc 83 mg/dl VLDL Cholesterol, Calc 37 H (0-30) mg/dl HDL Cholesterol 36 mg/dl Cholesterol/HDL Ratio 4.3 (0-5) Lipase (11-82) U/L TSH (0.300-4.500) uIu/ml Nasal Screen MRSA (PCR) (Negative) SARS-CoV-2, RNA, NAAT (NEGATIVE) 03/31/22 03/30/22 03/30/22 Range/Units 05:38 22:49 20:18 WBC 5.32 (4.8-10.8) K/ul RBC 3.95 (3.93-5.22) M/uL Hgb 12.0 (12.0-16.0) g/dl Hct 36.1 (34.1-44.9) % MCV 91.4 (80.0-100.0) fL MCH 30.4 (25.0-34.0) pg MCHC 33.2 (32.0-36.0) g/dL RDW Std Deviation 53.1 H (36.4-46.3) fL RDW Coeff of Jairon 15.8 H (11.5-14.5) % Plt Count 183 (130-400) K/uL MPV 10.3 (9.4-12.3) fL Immature Gran % (Auto) % Neut % (Auto) % Lymph % (Auto) % [place] % (Auto) % Eos % (Auto) % Baso % (Auto) % Neut # (Auto) (1.4-6.5) K/uL Lymph # (Auto) (1.2-3.4) K/uL [place] # (Auto) (0.24-0.82) K/uL Eos # (Auto) (0-0.50) K/uL Baso # (Auto) (0-0.2) K/uL Immature Gran # (Auto) (0.00-0.02) K/uL PT (9.0-12.0) Seconds INR (0.9-1.1) APTT (21.0-31.0) Seconds PTT Ratio VBG pH (7.36-7.41) VBG pCO2 (38-50) mmHg VBG pO2 mmHg VBG HCO3 mmol/L VBG O2 Saturation % VBG Base Excess mEq/L Sodium (136-145) mmol/L Potassium (3.5-5.1) mmol/L Chloride (98-107) mmol/L Carbon Dioxide (21-32) mmol/L Anion Gap (3-11) BUN (6-23) mg/dl Creatinine (0.6-1.2) mg/dl Est Cr Clr Drug Dosing ml/min Est GFR ( Amer) ml/min Est GFR (Non-Af Amer) ml/min BUN/Creatinine Ratio (10-20) Glucose (70-99(Fasting)) mg/dl POC Glucose 102 H (70-99) mg/dl Estimat Average Glucose mg/dl Hemoglobin A1c (4.5-5.6) % Calcium (8.5-10.1) mg/dl Phosphorus (2.5-4.9) mg/dl Magnesium (1.7-2.4) mg/dl Total Bilirubin (0.2-1.0) mg/dl AST (13-39) U/L ALT (7-52) U/L Alkaline Phosphatase (34-104) U/L Troponin I High Sens 23.0 H (0-14) pg/ml Total Protein (6.0-8.3) gm/dl Albumin (3.4-5.0) gm/dl Globulin (2.5-4.0) gm/dl Albumin/Globulin Ratio (0.9-2) Triglycerides (0-150) mg/dl Cholesterol (0-200) mg/dl LDL Cholesterol, Calc mg/dl VLDL Cholesterol, Calc (0-30) mg/dl HDL Cholesterol mg/dl Cholesterol/HDL Ratio (0-5) Lipase (11-82) U/L TSH (0.300-4.500) uIu/ml Nasal Screen MRSA (PCR) (Negative) SARS-CoV-2, RNA, NAAT (NEGATIVE) 03/30/22 03/30/22 03/30/22 Range/Units 18:20 17:14 16:40 WBC (4.8-10.8) K/ul RBC (3.93-5.22) M/uL Hgb (12.0-16.0) g/dl Hct (34.1-44.9) % MCV (80.0-100.0) fL MCH (25.0-34.0) pg MCHC (32.0-36.0) g/dL RDW Std Deviation (36.4-46.3) fL RDW Coeff of Jairon (11.5-14.5) % Plt Count (130-400) K/uL MPV (9.4-12.3) fL Immature Gran % (Auto) % Neut % (Auto) % Lymph % (Auto) % [place] % (Auto) % Eos % (Auto) % Baso % (Auto) % Neut # (Auto) (1.4-6.5) K/uL Lymph # (Auto) (1.2-3.4) K/uL [place] # (Auto) (0.24-0.82) K/uL Eos # (Auto) (0-0.50) K/uL Baso # (Auto) (0-0.2) K/uL Immature Gran # (Auto) (0.00-0.02) K/uL PT (9.0-12.0) Seconds INR (0.9-1.1) APTT (21.0-31.0) Seconds PTT Ratio VBG pH (7.36-7.41) VBG pCO2 (38-50) mmHg VBG pO2 mmHg VBG HCO3 mmol/L VBG O2 Saturation % VBG Base Excess mEq/L Sodium (136-145) mmol/L Potassium (3.5-5.1) mmol/L Chloride (98-107) mmol/L Carbon Dioxide (21-32) mmol/L Anion Gap (3-11) BUN (6-23) mg/dl Creatinine (0.6-1.2) mg/dl Est Cr Clr Drug Dosing ml/min Est GFR ( Amer) ml/min Est GFR (Non-Af Amer) ml/min BUN/Creatinine Ratio (10-20) Glucose (70-99(Fasting)) mg/dl POC Glucose 113 H (70-99) mg/dl Estimat Average Glucose mg/dl Hemoglobin A1c (4.5-5.6) % Calcium (8.5-10.1) mg/dl Phosphorus (2.5-4.9) mg/dl Magnesium (1.7-2.4) mg/dl Total Bilirubin (0.2-1.0) mg/dl AST (13-39) U/L ALT (7-52) U/L Alkaline Phosphatase (34-104) U/L Troponin I High Sens 22.5 H (0-14) pg/ml Total Protein (6.0-8.3) gm/dl Albumin (3.4-5.0) gm/dl Globulin (2.5-4.0) gm/dl Albumin/Globulin Ratio (0.9-2) Triglycerides (0-150) mg/dl Cholesterol (0-200) mg/dl LDL Cholesterol, Calc mg/dl VLDL Cholesterol, Calc (0-30) mg/dl HDL Cholesterol mg/dl Cholesterol/HDL Ratio (0-5) Lipase (11-82) U/L TSH (0.300-4.500) uIu/ml Nasal Screen MRSA (PCR) Negative (Negative) SARS-CoV-2, RNA, NAAT (NEGATIVE) 03/30/22 03/30/22 03/30/22 Range/Units 16:20 11:25 11:25 WBC (4.8-10.8) K/ul RBC (3.93-5.22) M/uL Hgb (12.0-16.0) g/dl Hct (34.1-44.9) % MCV (80.0-100.0) fL MCH (25.0-34.0) pg MCHC (32.0-36.0) g/dL RDW Std Deviation (36.4-46.3) fL RDW Coeff of Jairon (11.5-14.5) % Plt Count (130-400) K/uL MPV (9.4-12.3) fL Immature Gran % (Auto) % Neut % (Auto) % Lymph % (Auto) % [place] % (Auto) % Eos % (Auto) % Baso % (Auto) % Neut # (Auto) (1.4-6.5) K/uL Lymph # (Auto) (1.2-3.4) K/uL [place] # (Auto) (0.24-0.82) K/uL Eos # (Auto) (0-0.50) K/uL Baso # (Auto) (0-0.2) K/uL Immature Gran # (Auto) (0.00-0.02) K/uL PT (9.0-12.0) Seconds INR (0.9-1.1) APTT (21.0-31.0) Seconds PTT Ratio VBG pH 7.45 H (7.36-7.41) VBG pCO2 40 (38-50) mmHg VBG pO2 36 mmHg VBG HCO3 28 mmol/L VBG O2 Saturation 65.3 % VBG Base Excess 3.5 mEq/L Sodium (136-145) mmol/L Potassium (3.5-5.1) mmol/L Chloride (98-107) mmol/L Carbon Dioxide (21-32) mmol/L Anion Gap (3-11) BUN (6-23) mg/dl Creatinine (0.6-1.2) mg/dl Est Cr Clr Drug Dosing ml/min Est GFR ( Amer) ml/min Est GFR (Non-Af Amer) ml/min BUN/Creatinine Ratio (10-20) Glucose (70-99(Fasting)) mg/dl POC Glucose (70-99) mg/dl Estimat Average Glucose mg/dl Hemoglobin A1c (4.5-5.6) % Calcium (8.5-10.1) mg/dl Phosphorus (2.5-4.9) mg/dl Magnesium (1.7-2.4) mg/dl Total Bilirubin (0.2-1.0) mg/dl AST (13-39) U/L ALT (7-52) U/L Alkaline Phosphatase (34-104) U/L Troponin I High Sens (0-14) pg/ml Total Protein (6.0-8.3) gm/dl Albumin (3.4-5.0) gm/dl Globulin (2.5-4.0) gm/dl Albumin/Globulin Ratio (0.9-2) Triglycerides (0-150) mg/dl Cholesterol (0-200) mg/dl LDL Cholesterol, Calc mg/dl VLDL Cholesterol, Calc (0-30) mg/dl HDL Cholesterol mg/dl Cholesterol/HDL Ratio (0-5) Lipase (11-82) U/L TSH 2.785 (0.300-4.500) uIu/ml Nasal Screen MRSA (PCR) (Negative) SARS-CoV-2, RNA, NAAT NEGATIVE (NEGATIVE) 03/30/22 03/30/22 03/30/22 Range/Units 10:15 10:15 10:15 WBC 6.26 (4.8-10.8) K/ul RBC 4.14 (3.93-5.22) M/uL Hgb 12.6 (12.0-16.0) g/dl Hct 36.8 (34.1-44.9) % MCV 88.9 D (80.0-100.0) fL MCH 30.4 (25.0-34.0) pg MCHC 34.2 (32.0-36.0) g/dL RDW Std Deviation 51.2 H (36.4-46.3) fL RDW Coeff of Jairon 15.6 H (11.5-14.5) % Plt Count 203 (130-400) K/uL MPV 11.1 (9.4-12.3) fL Immature Gran % (Auto) 0.5 % Neut % (Auto) 74.5 % Lymph % (Auto) 13.9 % [place] % (Auto) 8.0 % Eos % (Auto) 2.6 % Baso % (Auto) 0.5 % Neut # (Auto) 4.67 (1.4-6.5) K/uL Lymph # (Auto) 0.87 L (1.2-3.4) K/uL [place] # (Auto) 0.50 (0.24-0.82) K/uL Eos # (Auto) 0.16 (0-0.50) K/uL Baso # (Auto) 0.03 (0-0.2) K/uL Immature Gran # (Auto) 0.03 H (0.00-0.02) K/uL PT 12.3 H (9.0-12.0) Seconds INR 1.2 H (0.9-1.1) APTT 28.7 (21.0-31.0) Seconds PTT Ratio 1.0 VBG pH (7.36-7.41) VBG pCO2 (38-50) mmHg VBG pO2 mmHg VBG HCO3 mmol/L VBG O2 Saturation % VBG Base Excess mEq/L Sodium 142 (136-145) mmol/L Potassium 3.1 L (3.5-5.1) mmol/L Chloride 107 (98-107) mmol/L Carbon Dioxide 24 (21-32) mmol/L Anion Gap 11 (3-11) BUN 22 (6-23) mg/dl Creatinine 1.02 (0.6-1.2) mg/dl Est Cr Clr Drug Dosing 47.5 ml/min Est GFR ( Amer) 61.4 ml/min Est GFR (Non-Af Amer) 53.0 ml/min BUN/Creatinine Ratio 21.6 H (10-20) Glucose 207 H (70-99(Fasting)) mg/dl POC Glucose (70-99) mg/dl Estimat Average Glucose mg/dl Hemoglobin A1c (4.5-5.6) % Calcium 9.9 (8.5-10.1) mg/dl Phosphorus (2.5-4.9) mg/dl Magnesium (1.7-2.4) mg/dl Total Bilirubin 0.7 (0.2-1.0) mg/dl AST 19 (13-39) U/L ALT 13 (7-52) U/L Alkaline Phosphatase 60 (34-104) U/L Troponin I High Sens 19.1 H (0-14) pg/ml Total Protein 6.8 (6.0-8.3) gm/dl Albumin 3.6 (3.4-5.0) gm/dl Globulin 3.2 (2.5-4.0) gm/dl Albumin/Globulin Ratio 1.1 (0.9-2) Triglycerides (0-150) mg/dl Cholesterol (0-200) mg/dl LDL Cholesterol, Calc mg/dl VLDL Cholesterol, Calc (0-30) mg/dl HDL Cholesterol mg/dl Cholesterol/HDL Ratio (0-5) Lipase 44 (11-82) U/L TSH (0.300-4.500) uIu/ml Nasal Screen MRSA (PCR) (Negative) SARS-CoV-2, RNA, NAAT (NEGATIVE) Medications Administered Current Inpatient Medications Acetaminophen (Acetaminophen 325 Mg Tab) 650 mg PO Q4H PRN PRN Reason: Moderate Pain Stop: 04/29/22 16:37 Dextrose (Dextrose 50% 50 Ml Syringe) 25 - 50 ml IV UD PRN; Protocol PRN Reason: Hypoglycemia Protocol Stop: 04/29/22 16:37 Glucagon (Glucagon For Inj 1 Mg Vial) 1 mg SQ UD PRN; Protocol PRN Reason: Hypoglycemia Protocol Stop: 04/29/22 16:37 Glucose (Glucose 40% Gel 15 Gm Tube) 15 - 30 gm PO UD PRN; Protocol PRN Reason: Hypoglycemia Protocol Stop: 04/29/22 16:37 Glucose (Glucose 10 Tab/Tube) 4 - 8 tab PO UD PRN; Protocol PRN Reason: Hypoglycemia Treatment Stop: 04/29/22 16:37 Insulin Aspart (Insulin Aspart Per Unit) 0 units SC ACHS [facility] Stop: 04/29/22 16:59 Last Admin: 03/30/22 20:20 Dose: Not Given Miscellaneous (Carbohydrates For Hypoglycemia ) 15 - 30 gm PO UD PRN PRN Reason: Hypoglycemia Protocol Stop: 04/29/22 16:37 Ondansetron HCl (Ondansetron Inj 2 Mg/Ml 2 Ml Vial) 4 mg IV Q4H PRN PRN Reason: Nausea And Vomiting Stop: 04/29/22 16:37
[2022-03-31] MEDS: INSULIN ASPART PER UNIT SC SCH ×4 (09:00→19:54)
[2022-03-31] MEDS ORDERED: METOPROLOL SUCC 25MG EXT REL TAB PO SCH (09:00)
[2022-03-31] MEDS ORDERED: NON-FORMULARY MEDICATION (Budesonide-Glycopyr-Formoterol [Breztri Aerosphere] 160-9-4.8 mc INH SCH (09:00)
[2022-03-31] MEDS: LANTUS PER UNIT CHARGE SQ SCH (09:01)
[2022-03-31] MEDS: PREGABALIN 50 MG CAP PO SCH ×2 (09:02→19:53)
[2022-03-31] MEDS: LOSARTAN/HCTZ 50/12.5MG TAB PO SCH (10:19)
[2022-03-31] MEDS: FLUTICASONE FUROATE 200MCG 14 PUFFS/INHALER INH SCH (10:19)
[2022-03-31] MEDS: hydrALAZINE 10 MG TAB PO SCH ×4 (10:20→19:46)
[2022-03-31] MEDS: ASPIRIN 81 MG CHEW PO SCH (10:20)
[2022-03-31] MEDS: DONEPEZIL HCL 5 MG TAB PO SCH (10:20)
[2022-03-31] MEDS: SERTRALINE HCL 100 MG TABLET PO SCH (10:20)
[2022-03-31] MEDS: PANTOprazole 40 MG TAB PO SCH (10:20)
[2022-03-31] MEDS: APIXABAN 5 MG TABLET PO SCH ×2 (10:20→19:45)
[2022-03-31] MEDS: UMECLIDINIUM/VILANTEROL 62.5/25MCG 7 PUFFS/INHALER INH SCH (10:21)
--- NOTE | 2022-03-31 11:57 | Cardiology Consultation ---
Date of Consultation March 31, 2022 Assessment & Plan (1) Paroxysmal atrial fibrillation with rapid ventricular response: (2) Chest pain: (3) Elevated troponin I level: (4) Pacemaker: (5) Hypertension: (6) Chronic kidney disease: Plan Patient is a 77-year-old female, limited historian with underlying mild dementia per reports. Her history is notable for paroxysmal atrial fibrillation with tachybradycardia syndrome and an indwelling pacemaker. Patient presents with symptomatic atrial fibrillation with rapid response with spontaneous conversion to sinus rhythm/atrial paced rhythm after IV metoprolol. Currently asymptomatic. Troponins minimally elevated but flat no evidence of evolution to suggest myocardial injury. Echocardiogram demonstrates normal to hyperdynamic LV systolic function, moderately elevated right heart pressures no significant valvular disease Recommendations: Increase metoprolol succinate to 50 mg twice per day. Continue extensive antihypertensive regimen and anticoagulation with Eliquis Episodes occurred in the setting of hypokalemia. We will add spironolactone at 12.5 mg p.o. daily EKG postconversion to sinus rhythm assess QT interval. If atrial fibrillation recurs may consider use of amiodarone. Ill- defined elevation pulmonary pressures makes this less appealing Will review prior records when available History of Present Illness Reason for Consultation: Atrial fibrillation with rapid response Requesting Physician: Dr. Trujillo Attending Physician: Eb Trujillo MD History of Present Illness Patient is a 77-year-old female with limited records available rather poor historian. Records reviewed and discussion made with patient. Ongoing issues per record review and x-ray review 1. Paroxysmal atrial fibrillation 2. Tachybradycardia syndrome status post dual-chamber pacemaker insertion 3. Hypertension 4.Diabetes mellitus 5. Possible coronary disease Patient unable to give additional information but was hospitalized per reports earlier in March with chest wall hematoma. Was recovering at [facility] and during physical therapy developed chest discomfort and shortness of breath. Patient treated with nitrates and aspirin in route. EKG on presentation atrial fibrillation with rapid response. Patient spontaneously converted to sinus rhythm at 1020 last evening. No further arrhythmias. Currently without cardiac complaints. Very vague historian with historical accuracy questioned No recent fevers or chills. Denies any specific chest pain discomfort does not recollect issues regarding chest wall hematoma. Has been taking medications as prescribed Allergies Allergy/AdvReac Type Severity Reaction Status Date / Time enalaprilat [From Vasotec] Allergy Mild Redness of Verified 03/30/22 14:49 Skin Home Medications Medication Instructions Recorded Confirmed Type albuterol sulfate 90 mcg/actuation 1 puff inhalation QID PRN 03/30/22 03/30/22 History aerosol inhaler (ProAir HFA) Shortness Of Breath apixaban 5 mg tablet (Eliquis) 5 mg PO BID 03/30/22 03/30/22 History aspirin 81 mg chewable tablet 81 mg PO DAILY 03/30/22 03/30/22 History atorvastatin 40 mg tablet 40 mg PO HS 03/30/22 03/30/22 History budesonide 160 mcg-glycopyr 9 2 inh inhalation BID 03/30/22 03/30/22 History mcg-formot 4.8 mcg/actuation HFA inhaler (Breztri Aerosphere) calcium carb-vit D3-minerals 600 1 tab PO DAILY 03/30/22 03/30/22 History mg calcium-200 unit tablet (Calcium 600 + Minerals) diltiazem HCl 180 mg 180 mg PO BID 03/30/22 03/30/22 History tablet,extended release 24 hr donepezil 5 mg tablet 5 mg PO DAILY 03/30/22 03/30/22 History ferrous sulfate 325 mg (65 mg 325 mg PO DAILY 03/30/22 03/30/22 History iron) tablet furosemide 40 mg tablet 40 mg PO DAILY PRN leg edema 03/30/22 03/30/22 History hydralazine 10 mg tablet 20 mg PO QID 03/30/22 03/30/22 History insulin glargine 100 unit/mL (3 10 unit subcut QAM 03/30/22 03/30/22 History mL) subcutaneous pen (Lantus Solostar U-100 Insulin) insulin lispro 100 unit/mL 1 sliding scale dose subcut 03/30/22 03/30/22 History subcutaneous cartridge (Humalog USEASDIRECTD U-100 Insulin) levothyroxine 100 mcg tablet 100 mcg PO DAILY 03/30/22 03/30/22 History losartan 50 mg-hydrochlorothiazide 1 tab PO DAILY 03/30/22 03/30/22 History 12.5 mg tablet metoprolol succinate 50 mg 25 mg PO Q8H 03/30/22 03/30/22 History tablet,extended release 24 hr montelukast 10 mg tablet 10 mg PO HS 03/30/22 03/30/22 History (Singulair) nitroglycerin 0.4 mg sublingual 0.4 mg sublingual DIRECTED 03/30/22 03/30/22 History tablet olanzapine 2.5 mg tablet (Zyprexa) 2.5 mg PO HS 03/30/22 03/30/22 History omeprazole 20 mg capsule,delayed 20 mg PO DAILY 03/30/22 03/30/22 History release potassium chloride 10 mEq 10 meq PO DAILY 03/30/22 03/30/22 History capsule,extended release pregabalin 50 mg capsule (Lyrica) 50 mg PO BID 03/30/22 03/30/22 History sertraline 100 mg tablet (Zoloft) 100 mg PO DAILY 03/30/22 03/30/22 History Patient History Medical History Abdominal hernia As a child, ? age 5 Atrial fibrillation CHF (congestive heart failure) Chronic kidney disease Dementia Depression Diabetes mellitus Gastroesophageal reflux Hyperlipidemia Hypertension Hypothyroid Pacemaker Seizures Surgical History H/O: hysterectomy History of appendectomy Hx of tonsillectomy Family History Mother Alzheimer disease Father Alzheimer disease Brother Cerebral aneurysm Social History Smoking Status: Former smoker Age Started Using Tobacco: 21; Age Quit Using Tobacco: 40; Hx Alcohol Use: No Hx Substance Use: No Preferred Language: [place] Communication Ability: Effective Elder Counselor Required: No Beliefs That Will Affect Care: None Current Living Situation: [facility] Current Living Situation Comment: [facility] Other Information That Helps Us Care for You: No Feels Safe at Home: Yes Safety Concerns: Feels Safe At This Time Assistive Devices: Denture - Upper, Denture - Lower, Glasses, Oxygen - Continuous and Walker Review of Systems Review of Systems: All systems reviewed & are unremarkable except as noted in HPI & below Physical Exam Constitutional: + thin; no acute distress Eyes: PERRL, conjunctivae normal, anicteric sclerae ENMT: external ear and nose normal, oropharynx normal Neck: trachea midline, no thyromegaly Respiratory: normal respiratory effort, lungs clear to auscultation Cardiovascular: Rate/Rhythm: regular rate and regular rhythm Heart Sounds: normal S1 and normal S2 Vessels: no JVD Extremities: no edema Chest (Breasts): Chest: + pacemaker (Site without irritation or tenderness) Gastrointestinal (Abdomen): normal bowel sounds, soft, nontender, no hepatosplenomegaly Musculoskeletal: no cyanosis or clubbing, extremities motor strength 5/5 Results & Data ([facility]) Vital Signs (Past 12 Hours) Vital Signs Temp Pulse Pulse Resp BP BP Pulse Ox 03/31/22 08:00 03/31/22 08:32 36.6 C 65 18 199/74 H 93 03/31/22 03:22 36.7 C 60 15 162/70 H 93 O2 Del Method 03/31/22 08:00 Room Air 03/31/22 08:32 Room Air 03/31/22 03:22 Room Air Laboratory Results Laboratory Results - last 24 hr 03/30/22 03/30/22 03/30/22 16:20 16:40 17:14 WBC RBC Hgb Hct MCV MCH MCHC RDW Std Deviation RDW Coeff of Jairon Plt Count MPV PT INR Sodium Potassium Chloride Carbon Dioxide Anion Gap BUN Creatinine Est Cr Clr Drug Dosing Est GFR ( Amer) Est GFR (Non-Af Amer) BUN/Creatinine Ratio Glucose POC Glucose 113 H Estimat Average Glucose Hemoglobin A1c Calcium Phosphorus Magnesium Troponin I High Sens 22.5 H Triglycerides Cholesterol LDL Cholesterol, Calc VLDL Cholesterol, Calc HDL Cholesterol Cholesterol/HDL Ratio TSH 2.785 Nasal Screen MRSA (PCR) 03/30/22 03/30/22 03/30/22 18:20 20:18 22:49 WBC RBC Hgb Hct MCV MCH MCHC RDW Std Deviation RDW Coeff of Jairon Plt Count MPV PT INR Sodium Potassium Chloride Carbon Dioxide Anion Gap BUN Creatinine Est Cr Clr Drug Dosing Est GFR ( Amer) Est GFR (Non-Af Amer) BUN/Creatinine Ratio Glucose POC Glucose 102 H Estimat Average Glucose Hemoglobin A1c Calcium Phosphorus Magnesium Troponin I High Sens 23.0 H Triglycerides Cholesterol LDL Cholesterol, Calc VLDL Cholesterol, Calc HDL Cholesterol Cholesterol/HDL Ratio TSH Nasal Screen MRSA (PCR) Negative 03/31/22 03/31/22 03/31/22 05:38 05:38 05:38 WBC 5.32 RBC 3.95 Hgb 12.0 Hct 36.1 MCV 91.4 MCH 30.4 MCHC 33.2 RDW Std Deviation 53.1 H RDW Coeff of Jairon 15.8 H Plt Count 183 MPV 10.3 PT 12.1 H INR 1.1 Sodium 141 Potassium 3.6 Chloride 108 H Carbon Dioxide 26 Anion Gap 7 BUN 19 Creatinine 1.04 Est Cr Clr Drug Dosing 45.1 Est GFR ( Amer) 60.0 Est GFR (Non-Af Amer) 51.8 BUN/Creatinine Ratio 18.3 Glucose 136 H POC Glucose Estimat Average Glucose Hemoglobin A1c Calcium 9.6 Phosphorus 3.4 Magnesium 1.9 Troponin I High Sens Triglycerides 186 H Cholesterol 156 LDL Cholesterol, Calc 83 VLDL Cholesterol, Calc 37 H HDL Cholesterol 36 Cholesterol/HDL Ratio 4.3 TSH Nasal Screen MRSA (PCR) 03/31/22 03/31/22 03/31/22 05:38 08:01 11:52 WBC RBC Hgb Hct MCV MCH MCHC RDW Std Deviation RDW Coeff of Jairon Plt Count MPV PT INR Sodium Potassium Chloride Carbon Dioxide Anion Gap BUN Creatinine Est Cr Clr Drug Dosing Est GFR ( Amer) Est GFR (Non-Af Amer) BUN/Creatinine Ratio Glucose POC Glucose 138 H 139 H Estimat Average Glucose 140 Hemoglobin A1c 6.5 H Calcium Phosphorus Magnesium Troponin I High Sens Triglycerides Cholesterol LDL Cholesterol, Calc VLDL Cholesterol, Calc HDL Cholesterol Cholesterol/HDL Ratio TSH Nasal Screen MRSA (PCR)
[2022-03-31] MEDS: dilTIAZem ER 180 MG CAPCR PO SCH ×2 (13:31→19:45)
[2022-03-31] MEDS: SPIRONOLACTONE 12.5 MG TAB PO SCH (13:31)
--- NOTE | 2022-03-31 14:53 | Communication Note ---
Date of Service: March 31, 2022 Patient was reexamined with daughter in room. Daughter was able to provide additional information regarding prior history and care. Patient previously followed by cardiology in [place] and [place], Dr. Sesay, Dr. King. Remote coronary angiography greater than 20 years ago with coronary stents [employer] dual-chamber pacemaker insertion approximately 1 year ago Extended recent hospitalizations in [place] for change in mental status, agitation, hallucinations. Extensive hematoma secondary to trauma from agitation left arm and chest. Daughter adds the patient required significant potassium replacement prior to hospitalizations, 50 mill equivalents daily Plan as already outlined patient appears more alert and better oriented with family in room.
[2022-03-31] MEDS: METOPROLOL SUCC 50MG EXT REL TAB PO SCH (17:40)
[2022-03-31] MEDS: ATORVASTATIN 40 MG TAB PO SCH (19:45)
[2022-03-31] MEDS: MONTELUKAST SODIUM 10 MG TABLET PO SCH (19:46)
[2022-04-01] MEDS: LEVOTHYROXINE SODIUM 100 MCG TABLET PO SCH (05:45)
--- NOTE | 2022-04-01 05:51 | Electrocardiogram Report ---
Test Reason : Blood Pressure : / mmHG Vent. Rate : 125 BPM Atrial Rate : 120 BPM P-R Int : 000 ms QRS Dur : 078 ms QT Int : 326 ms P-R-T Axes : 000 -04 -37 degrees QTc Int : 470 ms Poor data quality, interpretation may be adversely affected Atrial fibrillation with rapid ventricular response Nonspecific ST abnormality Abnormal ECG No previous ECGs available Confirmed by Elias Oneal ([id number]) on 04/01/2022 5:51:17 AM Referred By: REFERRED SELF Confirmed By:Elias Oneal
[2022-04-01 06:31] LABS: BUN Creatinine Ratio 19.5 (10-20); Calcium 9.5 mg/dl (8.5-10.1); Creatinine Clr Calc Pharmacy 36.6 ml/min; Est GFR (African American) 46.7 ml/min; Est GFR (Non-African American) 40.3 ml/min; Magnesium 1.8 mg/dl (1.7-2.4); Phosphorus 3.4 mg/dl (2.5-4.9); Potassium 3.5 mmol/L (3.5-5.1)
[2022-04-01] MEDS: UMECLIDINIUM/VILANTEROL 62.5/25MCG 7 PUFFS/INHALER INH SCH (08:12)
[2022-04-01] MEDS: FLUTICASONE FUROATE 200MCG 14 PUFFS/INHALER INH SCH (08:12)
[2022-04-01] MEDS: APIXABAN 5 MG TABLET PO SCH ×2 (08:13→20:30)
[2022-04-01] MEDS: SPIRONOLACTONE 12.5 MG TAB PO SCH (08:13)
[2022-04-01] MEDS: LOSARTAN/HCTZ 50/12.5MG TAB PO SCH (08:13)
[2022-04-01] MEDS: PANTOprazole 40 MG TAB PO SCH (08:13)
[2022-04-01] MEDS: SERTRALINE HCL 100 MG TABLET PO SCH (08:13)
[2022-04-01] MEDS: dilTIAZem ER 180 MG CAPCR PO SCH ×2 (08:13→20:30)
[2022-04-01] MEDS: METOPROLOL SUCC 50MG EXT REL TAB PO SCH ×2 (08:13→16:08)
[2022-04-01] MEDS: DONEPEZIL HCL 5 MG TAB PO SCH (08:13)
[2022-04-01] MEDS: ASPIRIN 81 MG CHEW PO SCH (08:13)
--- NOTE | 2022-04-01 08:13 | Cardiology Progress Note ---
Date of Service April 01, 2022 Assessment & Plan (1) Paroxysmal atrial fibrillation with rapid ventricular response: (2) Chest pain: (3) Elevated troponin I level: (4) Pacemaker: (5) Hypertension: (6) Chronic kidney disease: Plan Patient is a 77-year-old female, limited historian with underlying mild dementia per reports. Her history is notable for paroxysmal atrial fibrillation with tachybradycardia syndrome and an indwelling pacemaker. Patient presents with symptomatic atrial fibrillation with rapid response with spontaneous conversion to sinus rhythm/atrial paced rhythm after IV metoprolol. Currently asymptomatic. Troponins minimally elevated but flat no evidence of evolution to suggest myocardial injury. Echocardiogram demonstrates normal to hyperdynamic LV systolic function, moderately elevated right heart pressures no significant valvular disease Issues addressed as follows 1. Paroxysmal atrial fibrillation: No recurrence since hospitalization. Metoprolol succinate increased to 50 mg twice per day. Hypokalemia may have been precipitating issue. Spironolactone added to regimen. Additional potassium given this morning. Patient chronically anticoagulated with Eliquis. 2. Longstanding hypertension on multiple drug regimen: Blood pressure still elevated will increase hydralazine to 25 mg 4 times daily other medication adjustments as above 3. Tachybradycardia syndrome status post dual-chamber pacemaker insertion [employer] device. No arrhythmias on telemetry. Device functioning appropriately Patient clinically improved. Will need outpatient follow-up with [facility] cardiology. Patient planning on transitioning care from [place] to [facility] Admission and Anticipated Discharge Date Admission Date: March 30, 2022 Subjective Patient seen and examined, chart, medications, telemetry reviewed. Feels well this morning though blood pressure elevated. Oriented and answering questions appropriately. No arrhythmias on telemetry. Patient ambulatory with assistance to bathroom without difficulty Review of Systems Review of Systems: All systems reviewed & are unremarkable except as noted in Subjective Physical Exam Constitutional: no acute distress Eyes: PERRL, conjunctivae normal, anicteric sclerae ENMT: external ear and nose normal, oropharynx normal Neck: trachea midline, no thyromegaly Respiratory: normal respiratory effort, lungs clear to auscultation Cardiovascular: Rate/Rhythm: regular rate and regular rhythm Heart Sounds: normal S1 and normal S2 Vessels: no JVD Extremities: no edema Chest (Breasts): Chest: + pacemaker (Site without irritation or tenderness) Gastrointestinal (Abdomen): normal bowel sounds, soft, nontender, no hepatosplenomegaly Musculoskeletal: no cyanosis or clubbing, extremities motor strength 5/5 Neurologic: PERRL, EOMI, accommodation nl, no face palsy, no dysarthria Psychiatric: A+Ox3, euthymic affect Results & Data ([facility]) Vital Signs (Past 12 Hours) Vital Signs Temp Pulse Resp BP Pulse Ox O2 Del Method 04/01/22 07:19 36.6 C 60 17 185/73 H 94 Room Air 04/01/22 03:33 36.7 C 63 18 162/70 H 93 Room Air 03/31/22 23:10 37.0 C 60 18 177/76 H 90 Room Air Laboratory Results Laboratory Results - last 24 hr 03/31/22 03/31/22 03/31/22 11:52 16:48 19:50 Sodium Potassium Chloride Carbon Dioxide Anion Gap BUN Creatinine Est Cr Clr Drug Dosing Est GFR ( Amer) Est GFR (Non-Af Amer) BUN/Creatinine Ratio Glucose POC Glucose 139 H 147 H 87 Calcium Phosphorus Magnesium 04/01/22 05:37 Sodium 141 Potassium 3.5 Chloride 108 H Carbon Dioxide 26 Anion Gap 7 BUN 25 H Creatinine 1.28 H Est Cr Clr Drug Dosing 36.6 Est GFR ( Amer) 46.7 Est GFR (Non-Af Amer) 40.3 BUN/Creatinine Ratio 19.5 Glucose 134 H POC Glucose Calcium 9.5 Phosphorus 3.4 Magnesium 1.8
[2022-04-01] MEDS ORDERED: POTASSIUM CHLORIDE CRTAB 20 MEQ TABCR PO ONE (08:14)
[2022-04-01] MEDS: PREGABALIN 50 MG CAP PO SCH ×2 (08:20→20:33)
--- NOTE | 2022-04-01 08:25 | Hospitalist Progress Note ---
Date of Service April 01, 2022 Assessment & Plan (1) Chest pain: (2) Hypokalemia: (3) Pacemaker: (4) Atrial fibrillation: (5) CHF (congestive heart failure): (6) Hypertension: (7) Hyperlipidemia: Plan: - Admit to tele - Trend cardiac biomarkers, initial set was 19.1, currently without any chest complaints or symptoms - EKG reviewed as above - initially was in afib with RVR? Appears paced on monitor with HR in the mid 60s at time of my initial evaluation - Check 2 D echo - HIM requesting records from [facility] for most recent hospitalization as well as cardiology notes -Appears to be euvolemic, per nursing personnel at her bedside has not required recent Lasix administration, takes only as needed for leg edema -Continue on Cardizem ER, hydralazine, losartan/HCTZ, metoprolol succinate -Anticoagulated on Eliquis for A. fib -Hypokalemia was found at 3.1, replaced p.o. - PT/OT consulted -CT of the chest is negative for any PE -Pacemaker noted -Recent chest wall hematoma evacuation occurred on 03/16/2022, measured 4 x 1 x 3 cm large, at this time unknown etiology, requesting records as above Cardiology was consulted, increased her metoprolol succinate to 50 mg twice a day. Continue extensive antihypertensive therapy with anticoagulation with Eliquis. Increase hydralazine to 25 mg qid. Patient was hypokalemic on admission, and spironolactone 12.5 mg was also added. BP elevated this AM, but improved now 156/81 (8) Diabetes mellitus: Plan: -Heart healthy/diabetic diet, Lantus 10 units every morning continued, ISS with Accu-Cheks ACHS -last A1c is 6.8 on 03/23/2022 [facility] -Check lipid panel for completeness (9) Chronic kidney disease: Plan: -Records indicate stage III CKD, BUN 22, creatinine 1.01 (10) Gastroesophageal reflux: Plan: -History of hiatal hernia, continue omeprazole, possible indigestion-like symptoms being referred into the chest? Continue cardiac work-up as above (11) Depression: Plan: -May continue Zoloft 100 mg daily (12) Dementia: Plan: -Mild to moderate with history of auditory and visual hallucinations, currently no hallucinations noted, pt is alert, awake oriented x3. -Continue Aricept 5 mg daily -No history of psychotic features or behavioral disturbances, if develops then consider psychiatry consultation (13) Hypothyroid: Plan: - Continue levothyroxine, will add on TSH and free T4 with hx of afib DVT ppx: - teds, scds CODE: DNR/DNI- discussed with the patient at bedside Dispo: Plan to DC to [facility] Admission and Anticipated Discharge Date Admission Date: March 30, 2022 Subjective Pt seen in follow up of chest pain, Afib w/ RVR Now converted to sinus rhythm She is sitting up in bed, in no distress, reading a book She feels much better today Denies any chest pain or shortness of breath Denies fevers chills abdominal pain, nausea or vomiting Plan to DC back to [facility], likely Sunday , pt needs prior auth Review of Systems Review of Systems: All systems reviewed & are unremarkable except as noted in Subjective Physical Exam Physical Exam: General: awake, alert, in NAD Head: Normocephalic, atraumatic ENT: PERRL, EOMI Chest: Clear to auscultation, on room air, no adventitious breath sounds, chest wall scar healing, no surrounding signs of infection Cardiac: RRR, no murmur, no JVD Abdominal: NABS x 4 quadrants, soft, nondistended, nontender to palpation Extremities: + Dry skin Normal inspection, no peripheral edema or erythema Psych: Normal mood and affect Neuro: Awake and alert, able to answer questions appropriately, speech fluent, extremities Results & Data Results & Data ([facility]) Vital Signs (Past 12 Hours) Vital Signs Temp Pulse Resp BP Pulse Ox O2 Del Method 04/01/22 07:19 36.6 C 60 17 185/73 H 94 Room Air 04/01/22 03:33 36.7 C 63 18 162/70 H 93 Room Air 03/31/22 23:10 37.0 C 60 18 177/76 H 90 Room Air Laboratory Results 04/01/22 04/01/22 03/31/22 Range/Units 08:13 05:37 19:50 Sodium 141 (136-145) mmol/L Potassium 3.5 (3.5-5.1) mmol/L Chloride 108 H (98-107) mmol/L Carbon Dioxide 26 (21-32) mmol/L Anion Gap 7 (3-11) BUN 25 H (6-23) mg/dl Creatinine 1.28 H (0.6-1.2) mg/dl Est Cr Clr Drug Dosing 36.6 ml/min Est GFR ( Amer) 46.7 ml/min Est GFR (Non-Af Amer) 40.3 ml/min BUN/Creatinine Ratio 19.5 (10-20) Glucose 134 H (70-99(Fasting)) mg/dl POC Glucose 132 H 87 (70-99) mg/dl Calcium 9.5 (8.5-10.1) mg/dl Phosphorus 3.4 (2.5-4.9) mg/dl Magnesium 1.8 (1.7-2.4) mg/dl 03/31/22 03/31/22 Range/Units 16:48 11:52 Sodium (136-145) mmol/L Potassium (3.5-5.1) mmol/L Chloride (98-107) mmol/L Carbon Dioxide (21-32) mmol/L Anion Gap (3-11) BUN (6-23) mg/dl Creatinine (0.6-1.2) mg/dl Est Cr Clr Drug Dosing ml/min Est GFR ( Amer) ml/min Est GFR (Non-Af Amer) ml/min BUN/Creatinine Ratio (10-20) Glucose (70-99(Fasting)) mg/dl POC Glucose 147 H 139 H (70-99) mg/dl Calcium (8.5-10.1) mg/dl Phosphorus (2.5-4.9) mg/dl Magnesium (1.7-2.4) mg/dl Medications Administered Current Inpatient Medications Acetaminophen (Acetaminophen 325 Mg Tab) 650 mg PO Q4H PRN PRN Reason: Moderate Pain Stop: 04/29/22 16:37 Apixaban (Apixaban 5 Mg Tablet) 5 mg PO BID PREETI Stop: 04/30/22 08:59 Last Admin: 04/01/22 08:13 Dose: 5 mg Aspirin (Aspirin 81 Mg Chew) 81 mg PO DAILY PREETI Stop: 04/30/22 08:59 Last Admin: 04/01/22 08:13 Dose: 81 mg Atorvastatin Calcium (Atorvastatin 40 Mg Tab) 40 mg PO HS PREETI Stop: 04/30/22 20:59 Last Admin: 03/31/22 19:45 Dose: 40 mg Dextrose (Dextrose 50% 50 Ml Syringe) 25 - 50 ml IV UD PRN; Protocol PRN Reason: Hypoglycemia Protocol Stop: 04/29/22 16:37 Diltiazem HCl (Diltiazem Er 180 Mg Capcr) 180 mg PO BID PREETI Stop: 04/30/22 10:29 Last Admin: 04/01/22 08:13 Dose: 180 mg Donepezil HCl (Donepezil Hcl 5 Mg Tab) 5 mg PO DAILY PREETI Stop: 04/30/22 08:59 Last Admin: 04/01/22 08:13 Dose: 5 mg Fluticasone Furoate (Fluticasone Furoate 200mcg 14 Puffs/Inhaler) 1 puffs INH DAILY PREETI Stop: 04/30/22 08:59 Last Admin: 04/01/22 08:12 Dose: 1 puffs Glucagon (Glucagon For Inj 1 Mg Vial) 1 mg SQ UD PRN; Protocol PRN Reason: Hypoglycemia Protocol Stop: 04/29/22 16:37 Glucose (Glucose 40% Gel 15 Gm Tube) 15 - 30 gm PO UD PRN; Protocol PRN Reason: Hypoglycemia Protocol Stop: 04/29/22 16:37 Glucose (Glucose 10 Tab/Tube) 4 - 8 tab PO UD PRN; Protocol PRN Reason: Hypoglycemia Treatment Stop: 04/29/22 16:37 HCTZ/Losartan Potassium (Losartan/Hctz 50/12.5mg Tab) 1 tab PO DAILY PREETI Stop: 04/30/22 08:59 Last Admin: 04/01/22 08:13 Dose: 1 tab Hydralazine HCl (Hydralazine Hcl 25 Mg Tab) 25 mg PO QID PREETI Stop: 05/01/22 08:59 Insulin Aspart (Insulin Aspart Per Unit) 0 units SC ACHS PREETI Stop: 04/29/22 16:59 Last Admin: 03/31/22 19:54 Dose: Not Given Insulin Glargine (Lantus Per Unit Charge) 10 units SQ QAM PREETI Stop: 04/30/22 08:59 Last Admin: 03/31/22 09:01 Dose: 10 units Levothyroxine Sodium (Levothyroxine Sodium 100 Mcg Tablet) 100 mcg PO DAILYBB PREETI Stop: 05/01/22 06:29 Last Admin: 04/01/22 05:45 Dose: 100 mcg Metoprolol Succinate (Metoprolol Succ 50mg Ext Rel Tab) 50 mg PO BID17 PREETI Stop: 04/30/22 16:59 Last Admin: 04/01/22 08:13 Dose: 50 mg Miscellaneous (Carbohydrates For Hypoglycemia ) 15 - 30 gm PO UD PRN PRN Reason: Hypoglycemia Protocol Stop: 04/29/22 16:37 Montelukast Sodium (Montelukast Sodium 10 Mg Tablet) 10 mg PO HS PREETI Stop: 04/30/22 20:59 Last Admin: 03/31/22 19:46 Dose: 10 mg Ondansetron HCl (Ondansetron Inj 2 Mg/Ml 2 Ml Vial) 4 mg IV Q4H PRN PRN Reason: Nausea And Vomiting Stop: 04/29/22 16:37 Pantoprazole Sodium (Pantoprazole 40 Mg Tab) 40 mg PO DAILY [facility] Stop: 04/30/22 09:14 Last Admin: 04/01/22 08:13 Dose: 40 mg Pregabalin (Pregabalin 50 Mg Cap) 50 mg PO BID PREETI Stop: 04/30/22 08:59 Last Admin: 04/01/22 08:20 Dose: 50 mg Sertraline HCl (Sertraline Hcl 100 Mg Tablet) 100 mg PO DAILY PREETI Stop: 04/30/22 08:59 Last Admin: 04/01/22 08:13 Dose: 100 mg Spironolactone (Spironolactone 12.5 Mg Tab) 12.5 mg PO DAILY PREETI Stop: 04/30/22 12:59 Last Admin: 04/01/22 08:13 Dose: 12.5 mg Umeclidinium/Vilanterol (Umeclidinium/Vilanterol 62.5/25mcg 7 Puffs/Inhaler) 1 puffs INH DAILY PREETI Stop: 04/30/22 08:59 Last Admin: 04/01/22 08:12 Dose: 1 puffs
[2022-04-01] MEDS: hydrALAZINE HCL 25 MG TAB PO SCH ×4 (09:28→20:30)
[2022-04-01] MEDS: INSULIN ASPART PER UNIT SC SCH ×4 (09:30→20:30)
[2022-04-01] MEDS: LANTUS PER UNIT CHARGE SQ SCH (09:31)
[2022-04-01] MEDS: MONTELUKAST SODIUM 10 MG TABLET PO SCH (20:30)
[2022-04-01] MEDS: ATORVASTATIN 40 MG TAB PO SCH (20:30)
[2022-04-01] MEDS ORDERED: hydrALAZINE HCL 20 MG/ML VIAL IV ONE (22:42)
[2022-04-01] MEDS ORDERED: LORazepam 0.5 MG TAB PO STA (22:42)
[2022-04-01] MEDS ORDERED: hydrALAZINE HCL 20 MG/ML VIAL ONE (22:45)
[2022-04-02] MEDS ORDERED: MoRPHine SULFATE 2 MG/ML CARP IV STA (00:25)
[2022-04-02 00:41] LABS: Base Excess ABG 2.3 mEq/L (-9-1.8); HCO3 ABG 24 mmol/L (19-24); PCO2 ABG 27 mmHg (35-46); PO2 ABG 83 mmHg (80-95)
[2022-04-02 00:52] LABS: Allen Test Pos (Pos); pH ABG 7.55 (7.35-7.45)
[2022-04-02] MEDS ORDERED: LORazepam 0.25 MG in SYRINGE 0 ML IV STA (01:20)
[2022-04-02] MEDS: LEVOTHYROXINE SODIUM 100 MCG TABLET PO SCH (04:25)
[2022-04-02 06:10] LABS: BUN Creatinine Ratio 23.8 (10-20); Calcium 9.6 mg/dl (8.5-10.1); Creatinine Clr Calc Pharmacy 37.2 ml/min; Est GFR (African American) 47.6 ml/min; Est GFR (Non-African American) 41.1 ml/min; Magnesium 1.9 mg/dl (1.7-2.4); Phosphorus 2.9 mg/dl (2.5-4.9); Potassium 3.3 mmol/L (3.5-5.1)
--- NOTE | 2022-04-02 06:17 | Electrocardiogram Report ---
Test Reason : Blood Pressure : / mmHG Vent. Rate : 060 BPM Atrial Rate : 060 BPM P-R Int : 186 ms QRS Dur : 080 ms QT Int : 458 ms P-R-T Axes : 039 -11 007 degrees QTc Int : 458 ms Atrial-paced rhythm Abnormal ECG When compared with ECG of 30-MAR-2022 10:13, Electronic atrial pacemaker has replaced Atrial fibrillation Vent. rate has decreased BY 65 BPM Non-specific change in ST segment in Inferior leads ST no longer depressed in Lateral leads Confirmed by Elias Oneal ([id number]) on 04/02/2022 6:17:01 AM Referred By: REFERRED SELF Confirmed By:Elias Oneal
[2022-04-02] MEDS ORDERED: POTASSIUM CHLORIDE CRTAB 20 MEQ TABCR PO STA (08:18)
[2022-04-02] MEDS ORDERED: MAGNESIUM OXIDE 400 MG TAB PO ONE (08:19)
--- NOTE | 2022-04-02 08:20 | Hospitalist Progress Note ---
Date of Service April 02, 2022 Assessment & Plan (1) Chest pain: (2) Hypokalemia: (3) Pacemaker: (4) Atrial fibrillation: (5) CHF (congestive heart failure): (6) Hypertension: (7) Hyperlipidemia: Plan: - Admit to tele - Trend cardiac biomarkers, initial set was 19.1, currently without any chest complaints or symptoms - EKG reviewed as above - initially was in afib with RVR? Appears paced on monitor with HR in the mid 60s at time of my initial evaluation - Check 2 D echo - HIM requesting records from [facility] for most recent hospitalization as well as cardiology notes -Appears to be euvolemic, per nursing personnel at her bedside has not required recent Lasix administration, takes only as needed for leg edema -Continue on Cardizem ER, hydralazine, losartan/HCTZ, metoprolol succinate -Anticoagulated on Eliquis for A. fib -Hypokalemia was found at 3.1, replaced p.o. - PT/OT consulted -CT of the chest is negative for any PE -Pacemaker noted -Recent chest wall hematoma evacuation occurred on 03/16/2022, measured 4 x 1 x 3 cm large, at this time unknown etiology, requesting records as above Cardiology was consulted, increased her metoprolol succinate to 50 mg twice a day. Continue extensive antihypertensive therapy with anticoagulation with Eliquis. Increase hydralazine to 25 mg qid. Patient was hypokalemic on admission, and spironolactone 12.5 mg was also added. 04/02 BP elevated overnight, SBP over 200, pt reported shortness of breath and felt she was in Afib BP current 162/76 (8) Diabetes mellitus: Plan: -Heart healthy/diabetic diet, Lantus 10 units every morning continued, ISS with Accu-Cheks ACHS -last A1c is 6.8 on 03/23/2022 [facility] - LDL 83 (9) Chronic kidney disease: Plan: -Records indicate stage III CKD, BUN 22, creatinine 1.01 (10) Gastroesophageal reflux: Plan: -History of hiatal hernia, continue omeprazole, possible indigestion-like symptoms being referred into the chest? Continue cardiac work-up as above (11) Depression: Plan: -May continue Zoloft 100 mg daily (12) Dementia: Plan: -Mild to moderate with history of auditory and visual hallucinations, currently no hallucinations noted, pt is alert, awake oriented x3. -Continue Aricept 5 mg daily -No history of psychotic features or behavioral disturbances, if develops then consider psychiatry consultation (13) Hypothyroid: Plan: - Continue levothyroxine, will add on TSH and free T4 with hx of afib DVT ppx: - teds, scds CODE: DNR/DNI- discussed with the patient at bedside Dispo: Plan to DC to [facility] Admission and Anticipated Discharge Date Admission Date: March 30, 2022 Subjective Pt seen in follow up of chest pain, Afib w/ RVR Overnight patient felt short of breath, anxious, and thought she was in A. fib Geophysical Support Specialist notified, patient was given Ativan, morphine Her blood pressure was significantly elevated, received IV hydralazine Review of telemetry did not show A. fib Currently she is sitting up in bed, in no distress,reports feeling better Denies any chest pain or shortness of breath Denies fevers chills abdominal pain, nausea or vomiting Plan to DC back to [facility], likely Sunday , pt needs prior auth Review of Systems Review of Systems: All systems reviewed & are unremarkable except as noted in Subjective Physical Exam Physical Exam: General: awake, alert, in NAD Head: Normocephalic, atraumatic ENT: PERRL, EOMI Chest: diminished breath sounds at bases, no wheezing Cardiac: RRR, no murmur, no JVD Abdominal: NABS x 4 quadrants, soft, nondistended, nontender to palpation Extremities: + Dry skin Normal inspection, no peripheral edema or erythema Psych: Normal mood and affect Neuro: Awake and alert, able to answer questions appropriately, speech fluent, moves extremities Results & Data Results & Data ([facility]) Vital Signs (Past 12 Hours) Vital Signs Temp Pulse BP Pulse Ox O2 Del Method 04/02/22 01:45 36.7 C 60 161/74 H 96 Room Air 04/01/22 22:05 36.7 C 60 238/96 H 91 Room Air 04/01/22 23:09 65 145/73 H Laboratory Results 04/02/22 04/02/22 04/01/22 Range/Units 05:10 00:34 20:23 ABG pH 7.55 H* (7.35-7.45) ABG pCO2 27 L (35-46) mmHg ABG pO2 83 (80-95) mmHg ABG HCO3 24 (19-24) mmol/L ABG O2 Saturation 98.0 H (90-95) % ABG Base Excess 2.3 H (-9-1.8) mEq/L Patrick Test Pos (Pos) Oxygen Given 2L Sodium 139 (136-145) mmol/L Potassium 3.3 L (3.5-5.1) mmol/L Chloride 105 (98-107) mmol/L Carbon Dioxide 25 (21-32) mmol/L Anion Gap 9 (3-11) BUN 30 H (6-23) mg/dl Creatinine 1.26 H (0.6-1.2) mg/dl Est Cr Clr Drug Dosing 37.2 ml/min Est GFR ( Amer) 47.6 ml/min Est GFR (Non-Af Amer) 41.1 ml/min BUN/Creatinine Ratio 23.8 H (10-20) Glucose 152 H (70-99(Fasting)) mg/dl POC Glucose 97 (70-99) mg/dl Calcium 9.6 (8.5-10.1) mg/dl Phosphorus 2.9 (2.5-4.9) mg/dl Magnesium 1.9 (1.7-2.4) mg/dl 04/01/22 04/01/22 Range/Units 16:25 12:04 ABG pH (7.35-7.45) ABG pCO2 (35-46) mmHg ABG pO2 (80-95) mmHg ABG HCO3 (19-24) mmol/L ABG O2 Saturation (90-95) % ABG Base Excess (-9-1.8) mEq/L Patrick Test (Pos) Oxygen Given Sodium (136-145) mmol/L Potassium (3.5-5.1) mmol/L Chloride (98-107) mmol/L Carbon Dioxide (21-32) mmol/L Anion Gap (3-11) BUN (6-23) mg/dl Creatinine (0.6-1.2) mg/dl Est Cr Clr Drug Dosing ml/min Est GFR ( Amer) ml/min Est GFR (Non-Af Amer) ml/min BUN/Creatinine Ratio (10-20) Glucose (70-99(Fasting)) mg/dl POC Glucose 111 H 154 H (70-99) mg/dl Calcium (8.5-10.1) mg/dl Phosphorus (2.5-4.9) mg/dl Magnesium (1.7-2.4) mg/dl Medications Administered Current Inpatient Medications Acetaminophen (Acetaminophen 325 Mg Tab) 650 mg PO Q4H PRN PRN Reason: Moderate Pain Stop: 04/29/22 16:37 Apixaban (Apixaban 5 Mg Tablet) 5 mg PO BID PREETI Stop: 04/30/22 08:59 Last Admin: 04/01/22 20:30 Dose: 5 mg Aspirin (Aspirin 81 Mg Chew) 81 mg PO DAILY PREETI Stop: 04/30/22 08:59 Last Admin: 04/01/22 08:13 Dose: 81 mg Atorvastatin Calcium (Atorvastatin 40 Mg Tab) 40 mg PO HS PREETI Stop: 04/30/22 20:59 Last Admin: 04/01/22 20:30 Dose: 40 mg Dextrose (Dextrose 50% 50 Ml Syringe) 25 - 50 ml IV UD PRN; Protocol PRN Reason: Hypoglycemia Protocol Stop: 04/29/22 16:37 Diltiazem HCl (Diltiazem Er 180 Mg Capcr) 180 mg PO BID PREETI Stop: 04/30/22 10:29 Last Admin: 04/01/22 20:30 Dose: 180 mg Donepezil HCl (Donepezil Hcl 5 Mg Tab) 5 mg PO DAILY PREETI Stop: 04/30/22 08:59 Last Admin: 04/01/22 08:13 Dose: 5 mg Fluticasone Furoate (Fluticasone Furoate 200mcg 14 Puffs/Inhaler) 1 puffs INH DAILY PREETI Stop: 04/30/22 08:59 Last Admin: 04/01/22 08:12 Dose: 1 puffs Glucagon (Glucagon For Inj 1 Mg Vial) 1 mg SQ UD PRN; Protocol PRN Reason: Hypoglycemia Protocol Stop: 04/29/22 16:37 Glucose (Glucose 40% Gel 15 Gm Tube) 15 - 30 gm PO UD PRN; Protocol PRN Reason: Hypoglycemia Protocol Stop: 04/29/22 16:37 Glucose (Glucose 10 Tab/Tube) 4 - 8 tab PO UD PRN; Protocol PRN Reason: Hypoglycemia Treatment Stop: 04/29/22 16:37 HCTZ/Losartan Potassium (Losartan/Hctz 50/12.5mg Tab) 1 tab PO DAILY PREETI Stop: 04/30/22 08:59 Last Admin: 04/01/22 08:13 Dose: 1 tab Hydralazine HCl (Hydralazine Hcl 25 Mg Tab) 25 mg PO QID PREETI Stop: 05/01/22 08:59 Last Admin: 04/01/22 20:30 Dose: 25 mg Insulin Aspart (Insulin Aspart Per Unit) 0 units SC ACHS PREETI Stop: 04/29/22 16:59 Last Admin: 04/01/22 20:30 Dose: Not Given Insulin Glargine (Lantus Per Unit Charge) 10 units SQ QAM PREETI Stop: 04/30/22 08:59 Last Admin: 04/01/22 09:31 Dose: 10 units Levothyroxine Sodium (Levothyroxine Sodium 100 Mcg Tablet) 100 mcg PO DAILYBB [facility] Stop: 05/01/22 06:29 Last Admin: 04/02/22 04:25 Dose: 100 mcg Magnesium Oxide (Magnesium Oxide 400 Mg Tab) 400 mg PO ONE ONE Stop: 04/02/22 08:20 Metoprolol Succinate (Metoprolol Succ 50mg Ext Rel Tab) 50 mg PO BID17 PREETI Stop: 04/30/22 16:59 Last Admin: 04/01/22 16:08 Dose: 50 mg Miscellaneous (Carbohydrates For Hypoglycemia ) 15 - 30 gm PO UD PRN PRN Reason: Hypoglycemia Protocol Stop: 04/29/22 16:37 Montelukast Sodium (Montelukast Sodium 10 Mg Tablet) 10 mg PO HS [facility] Stop: 04/30/22 20:59 Last Admin: 04/01/22 20:30 Dose: 10 mg Ondansetron HCl (Ondansetron Inj 2 Mg/Ml 2 Ml Vial) 4 mg IV Q4H PRN PRN Reason: Nausea And Vomiting Stop: 04/29/22 16:37 Pantoprazole Sodium (Pantoprazole 40 Mg Tab) 40 mg PO DAILY PREETI Stop: 04/30/22 09:14 Last Admin: 04/01/22 08:13 Dose: 40 mg Potassium Chloride (Potassium Chloride Crtab 20 Meq Tabcr) 40 meq PO NOW STA Stop: 04/02/22 08:19 Pregabalin (Pregabalin 50 Mg Cap) 50 mg PO BID PREETI Stop: 04/30/22 08:59 Last Admin: 04/01/22 20:33 Dose: 50 mg Sertraline HCl (Sertraline Hcl 100 Mg Tablet) 100 mg PO DAILY PREETI Stop: 04/30/22 08:59 Last Admin: 04/01/22 08:13 Dose: 100 mg Spironolactone (Spironolactone 12.5 Mg Tab) 12.5 mg PO DAILY PREETI Stop: 04/30/22 12:59 Last Admin: 04/01/22 08:13 Dose: 12.5 mg Umeclidinium/Vilanterol (Umeclidinium/Vilanterol 62.5/25mcg 7 Puffs/Inhaler) 1 puffs INH DAILY PRE[facility]I Stop: 04/30/22 08:59 Last Admin: 04/01/22 08:12 Dose: 1 puffs
[2022-04-02] MEDS: INSULIN ASPART PER UNIT SC SCH ×4 (08:45→20:27)
[2022-04-02] MEDS: LOSARTAN/HCTZ 50/12.5MG TAB PO SCH (08:46)
[2022-04-02] MEDS: APIXABAN 5 MG TABLET PO SCH ×2 (08:46→20:27)
[2022-04-02] MEDS: LANTUS PER UNIT CHARGE SQ SCH (08:46)
[2022-04-02] MEDS: SERTRALINE HCL 100 MG TABLET PO SCH (08:46)
[2022-04-02] MEDS: PANTOprazole 40 MG TAB PO SCH (08:46)
[2022-04-02] MEDS: SPIRONOLACTONE 12.5 MG TAB PO SCH (08:47)
[2022-04-02] MEDS: hydrALAZINE HCL 25 MG TAB PO SCH (08:47)
[2022-04-02] MEDS: dilTIAZem ER 180 MG CAPCR PO SCH ×2 (08:47→20:27)
[2022-04-02] MEDS: DONEPEZIL HCL 5 MG TAB PO SCH (08:47)
[2022-04-02] MEDS: METOPROLOL SUCC 50MG EXT REL TAB PO SCH ×2 (08:47→17:19)
[2022-04-02] MEDS: ASPIRIN 81 MG CHEW PO SCH (08:47)
[2022-04-02] MEDS: UMECLIDINIUM/VILANTEROL 62.5/25MCG 7 PUFFS/INHALER INH SCH (08:48)
[2022-04-02] MEDS: FLUTICASONE FUROATE 200MCG 14 PUFFS/INHALER INH SCH (08:48)
[2022-04-02] MEDS: PREGABALIN 50 MG CAP PO SCH ×2 (08:51→20:34)
--- NOTE | 2022-04-02 10:57 | XRay Report ---
XR chest 1V portable CLINICAL HISTORY: episodes of shortness of breath COMPARISON STUDY: Chest radiograph and chest CT March 30, 2022. FINDINGS: Left subclavian pacer is in place. No pneumothorax or pleural effusion is present. Cardiome diastinal silhouette is stable. There is no evidence for pulmonary edema. Mild bibasilar opacities fa vor atelectasis. IMPRESSION: No acute cardiopulmonary findings. This interval change in appearance of the chest. ACT 112: Negative or not required by law. Electronically signed by: Tommie Griffin M.D. 04/02/2022 10:56 AM
[2022-04-02] MEDS: hydrALAZINE TAB 50 MG TAB PO SCH ×2 (13:34→20:28)
--- NOTE | 2022-04-02 13:50 | Cardiology Progress Note ---
Date of Service April 02, 2022 Assessment & Plan (1) Paroxysmal atrial fibrillation with rapid ventricular response: (2) Chest pain: (3) Elevated troponin I level: (4) Pacemaker: (5) Hypertension: (6) Chronic kidney disease: Plan Patient is a 77-year-old female, limited historian with underlying mild dementia per reports. Her history is notable for paroxysmal atrial fibrillation with tachybradycardia syndrome and an indwelling pacemaker. Patient presents with symptomatic atrial fibrillation with rapid response with spontaneous conversion to sinus rhythm/atrial paced rhythm after IV metoprolol. Currently asymptomatic. Troponins minimally elevated but flat no evidence of evolution to suggest myocardial injury. Echocardiogram demonstrates normal to hyperdynamic LV systolic function, moderately elevated right heart pressures no significant valvular disease Issues addressed as follows 1. Paroxysmal atrial fibrillation: No recurrence since hospitalization. Metoprolol succinate increased to 50 mg twice per day. Hypokalemia may have been precipitating issue. Spironolactone added to regimen. Additional potassium given this morning. Patient chronically anticoagulated with Eliquis. 2. Longstanding hypertension on multiple drug regimen: Blood pressure still elevated will increase hydralazine to 25 mg 4 times daily other medication adjustments as above 3. Tachybradycardia syndrome status post dual-chamber pacemaker insertion [employer] device. No arrhythmias on telemetry. Device functioning appropriately Patient clinically improved. Will need outpatient follow-up with [facility] cardiology. Patient planning on transitioning care from [place] to [place] 04/02/2022. Patient with anxiety episodes last night without associated arrhythmia. Blood pressures remain labile Will increase hydralazine to 50 mg 3 times daily Given persistent hypokalemia we will discontinue hydrochlorothiazide portion of combination medication Continue losartan with room to increase at 50 mg/day Increase spironolactone to 25 mg p.o. daily Admission and Anticipated Discharge Date Admission Date: March 30, 2022 Subjective Patient seen and examined, chart, medications, telemetry reviewed. Events of last evening noted. Patient with marked anxiety concerns regarding possible recurrence of atrial fibrillation, elevated blood pressure. Telemetry with sinus and paced rhythm only No hypoxia. Patient treated with anxiolytic, morphine and hydralazine. Tired but no complaints this morning. Specifically notes no chest pains or discomfort. Telemetry reveals no arrhythmias with sinus and appropriate pacemaker function Review of Systems Review of Systems: All systems reviewed & are unremarkable except as noted in Subjective Physical Exam Constitutional: + thin; no acute distress Eyes: PERRL, conjunctivae normal, anicteric sclerae ENMT: external ear and nose normal, oropharynx normal Neck: trachea midline, no thyromegaly Respiratory: normal respiratory effort, lungs clear to auscultation Cardiovascular: Rate/Rhythm: regular rate and regular rhythm Heart Sounds: normal S1 and normal S2 Vessels: no JVD Extremities: no edema Chest (Breasts): Chest: + pacemaker (Site without irritation or tenderness) Gastrointestinal (Abdomen): normal bowel sounds, soft, nontender, no hepatosplenomegaly Musculoskeletal: no cyanosis or clubbing, extremities motor strength 5/5 Neurologic: PERRL, EOMI, accommodation nl, no face palsy, no dysarthria Psychiatric: A+Ox3, euthymic affect Results & Data ([facility]) Vital Signs (Past 12 Hours) Vital Signs Temp Pulse Resp BP Pulse Ox O2 Del Method 04/02/22 12:00 37.1 C 60 16 153/76 H 94 Room Air 04/02/22 08:00 36.8 C 60 18 162/76 H 91 Room Air Laboratory Results Laboratory Results - last 24 hr 04/01/22 04/01/22 04/02/22 16:25 20:23 00:34 ABG pH 7.55 H* ABG pCO2 27 L ABG pO2 83 ABG HCO3 24 ABG O2 Saturation 98.0 H ABG Base Excess 2.3 H Patrick Test Pos Oxygen Given 2L Sodium Potassium Chloride Carbon Dioxide Anion Gap BUN Creatinine Est Cr Clr Drug Dosing Est GFR ( Amer) Est GFR (Non-Af Amer) BUN/Creatinine Ratio Glucose POC Glucose 111 H 97 Calcium Phosphorus Magnesium 04/02/22 04/02/22 04/02/22 05:10 08:32 11:30 ABG pH ABG pCO2 ABG pO2 ABG HCO3 ABG O2 Saturation ABG Base Excess Patrick Test Oxygen Given Sodium 139 Potassium 3.3 L Chloride 105 Carbon Dioxide 25 Anion Gap 9 BUN 30 H Creatinine 1.26 H Est Cr Clr Drug Dosing 37.2 Est GFR ( Amer) 47.6 Est GFR (Non-Af Amer) 41.1 BUN/Creatinine Ratio 23.8 H Glucose 152 H POC Glucose 176 H 124 H Calcium 9.6 Phosphorus 2.9 Magnesium 1.9
[2022-04-02] MEDS ORDERED: SPIRONOLACTONE 12.5 MG TAB PO ONE (13:52)
[2022-04-02] MEDS: ATORVASTATIN 40 MG TAB PO SCH (20:27)
[2022-04-02] MEDS: MONTELUKAST SODIUM 10 MG TABLET PO SCH (20:28)
[2022-04-03] MEDS: LEVOTHYROXINE SODIUM 100 MCG TABLET PO SCH (06:14)
--- NOTE | 2022-04-03 08:03 | Hospitalist Progress Note ---
Date of Service April 03, 2022 Assessment & Plan (1) Chest pain: (2) Hypokalemia: (3) Pacemaker: (4) Atrial fibrillation: (5) CHF (congestive heart failure): (6) Hypertension: (7) Hyperlipidemia: Plan: - Admit to tele - Trend cardiac biomarkers, initial set was 19.1, currently without any chest complaints or symptoms - EKG reviewed as above - initially was in afib with RVR? Appears paced on monitor with HR in the mid 60s at time of my initial evaluation - Check 2 D echo - HIM [facility] as well as cardiology notes -Appears to be euvolemic, per nursing personnel at her bedside has not required recent Lasix administration, takes only as needed for leg edema -Continue on Cardizem ER, hydralazine, losartan/HCTZ, metoprolol succinate -Anticoagulated on Eliquis for A. fib -Hypokalemia was found at 3.1, replaced p.o. - PT/OT consulted -CT of the chest is negative for any PE -Pacemaker noted -Recent chest wall hematoma evacuation occurred on 03/16/2022, measured 4 x 1 x 3 cm large, at this time unknown etiology, requesting records as above Cardiology was consulted, increased her metoprolol succinate to 50 mg twice a day. Continue extensive antihypertensive therapy with anticoagulation with Eliquis. Increased hydralazine to 50 mg TID. Patient was hypokalemic on admission, and spironolactone 25 mg was also added. DC HCTZ d/t hypokalemia. Cont. w/ Losartan 50 mg daily. 04/03 BP improvd at 157/79 (8) Diabetes mellitus: Plan: -Heart healthy/diabetic diet, Lantus 10 units every morning continued, ISS with Accu-Cheks ACHS -last A1c is 6.8 on 03/23/2022 [facility] - LDL 83 (9) Chronic kidney disease: Plan: -Records indicate stage III CKD, BUN 22, creatinine 1.01 (10) Gastroesophageal reflux: Plan: -History of hiatal hernia, continue omeprazole, possible indigestion-like symptoms being referred into the chest? Continue cardiac work-up as above (11) Depression: Plan: -May continue Zoloft 100 mg daily (12) Dementia: Plan: -Mild to moderate with history of auditory and visual hallucinations, currently no hallucinations noted, pt is alert, awake oriented x3. -Continue Aricept 5 mg daily -No history of psychotic features or behavioral disturbances, if develops then consider psychiatry consultation (13) Hypothyroid: Plan: - Continue levothyroxine, will add on TSH and free T4 with hx of afib DVT ppx: - teds, scds CODE: DNR/DNI- discussed with the patient at bedside Dispo: Plan to DC to [facility] Admission and Anticipated Discharge Date Admission Date: March 30, 2022 Subjective Pt seen in follow up of chest pain, Afib w/ RVR BP initially poorly controlled, however now blood pressure control improved Currently she is sitting up in bed, in no distress,reports feeling better Denies any chest pain or shortness of breath, or palpitation Denies fevers chills abdominal pain, nausea or vomiting Plan to DC back to [facility], needs prior auth Review of Systems Review of Systems: All systems reviewed & are unremarkable except as noted in Subjective Physical Exam Physical Exam: General: awake, alert, in NAD Head: Normocephalic, atraumatic ENT: PERRL, EOMI Chest: diminished breath sounds at bases, no wheezing Cardiac: RRR, no murmur, no JVD Abdominal: NABS x 4 quadrants, soft, nondistended, nontender to palpation Extremities: + Dry skin Normal inspection, no peripheral edema or erythema Psych: Normal mood and affect Neuro: Awake and alert, able to answer questions appropriately, speech fluent, moves extremities Results & Data Results & Data ([facility]) Vital Signs (Past 12 Hours) Vital Signs Temp Pulse Pulse Resp BP BP Pulse Ox 04/03/22 04:17 94 04/03/22 04:11 36.5 C 60 17 141/67 H 88 L 04/02/22 23:15 60 04/02/22 22:57 37.0 C 60 18 148/74 H 94 04/02/22 21:19 60 150/68 H 04/02/22 20:35 181/78 H 04/02/22 20:23 37.0 C 60 19 91 O2 Del Method O2 Flow Rate 04/03/22 04:17 Nasal Cannula 2 04/03/22 04:11 Room Air 04/02/22 23:15 04/02/22 22:57 Room Air 04/02/22 21:19 10/30/22 20:35 04/02/22 20:23 Room Air Laboratory Results 04/03/22 04/03/22 04/02/22 Range/Units 08:03 07:44 19:37 Sodium 140 (136-145) mmol/L Potassium 4.1 D (3.5-5.1) mmol/L Chloride 107 (98-107) mmol/L Carbon Dioxide 26 (21-32) mmol/L Anion Gap 7 (3-11) BUN 31 H (6-23) mg/dl Creatinine 1.54 H (0.6-1.2) mg/dl Est Cr Clr Drug Dosing 30.0 ml/min Est GFR ( Amer) 37.3 ml/min Est GFR (Non-Af Amer) 32.2 ml/min BUN/Creatinine Ratio 20.1 H (10-20) Glucose 140 H (70-99(Fasting)) mg/dl POC Glucose 126 H 113 H (70-99) mg/dl Calcium 9.3 (8.5-10.1) mg/dl Phosphorus 3.5 (2.5-4.9) mg/dl Magnesium 2.1 (1.7-2.4) mg/dl 04/02/22 04/02/22 Range/Units 16:23 11:30 Sodium (136-145) mmol/L Potassium (3.5-5.1) mmol/L Chloride (98-107) mmol/L Carbon Dioxide (21-32) mmol/L Anion Gap (3-11) BUN (6-23) mg/dl Creatinine (0.6-1.2) mg/dl Est Cr Clr Drug Dosing ml/min Est GFR ( Amer) ml/min Est GFR (Non-Af Amer) ml/min BUN/Creatinine Ratio (10-20) Glucose (70-99(Fasting)) mg/dl POC Glucose 116 H 124 H (70-99) mg/dl Calcium (8.5-10.1) mg/dl Phosphorus (2.5-4.9) mg/dl Magnesium (1.7-2.4) mg/dl Medications Administered Current Inpatient Medications Acetaminophen (Acetaminophen 325 Mg Tab) 650 mg PO Q4H PRN PRN Reason: Moderate Pain Stop: 04/29/22 16:37 Apixaban (Apixaban 5 Mg Tablet) 5 mg PO BID PREETI Stop: 04/30/22 08:59 Last Admin: 04/02/22 20:27 Dose: 5 mg Aspirin (Aspirin 81 Mg Chew) 81 mg PO DAILY PREETI Stop: 04/30/22 08:59 Last Admin: 04/02/22 08:47 Dose: 81 mg Atorvastatin Calcium (Atorvastatin 40 Mg Tab) 40 mg PO HS PREETI Stop: 04/30/22 20:59 Last Admin: 04/02/22 20:27 Dose: 40 mg Dextrose (Dextrose 50% 50 Ml Syringe) 25 - 50 ml IV UD PRN; Protocol PRN Reason: Hypoglycemia Protocol Stop: 04/29/22 16:37 Diltiazem HCl (Diltiazem Er 180 Mg Capcr) 180 mg PO BID [facility] Stop: 04/30/22 10:29 Last Admin: 04/02/22 20:27 Dose: 180 mg Donepezil HCl (Donepezil Hcl 5 Mg Tab) 5 mg PO DAILY PREETI Stop: 04/30/22 08:59 Last Admin: 04/02/22 08:47 Dose: 5 mg Fluticasone Furoate (Fluticasone Furoate 200mcg 14 Puffs/Inhaler) 1 puffs INH DAILY PREETI Stop: 04/30/22 08:59 Last Admin: 04/02/22 08:48 Dose: 1 puffs Glucagon (Glucagon For Inj 1 Mg Vial) 1 mg SQ UD PRN; Protocol PRN Reason: Hypoglycemia Protocol Stop: 04/29/22 16:37 Glucose (Glucose 40% Gel 15 Gm Tube) 15 - 30 gm PO UD PRN; Protocol PRN Reason: Hypoglycemia Protocol Stop: 04/29/22 16:37 Glucose (Glucose 10 Tab/Tube) 4 - 8 tab PO UD PRN; Protocol PRN Reason: Hypoglycemia Treatment Stop: 04/29/22 16:37 Hydralazine HCl (Hydralazine Tab 50 Mg Tab) 50 mg PO TID [facility] Stop: 05/02/22 13:59 Last Admin: 04/02/22 20:28 Dose: 50 mg Insulin Aspart (Insulin Aspart Per Unit) 0 units SC ACHS [facility] Stop: 04/29/22 16:59 Last Admin: 04/02/22 20:27 Dose: Not Given Insulin Glargine (Lantus Per Unit Charge) 10 units SQ QAM PREETI Stop: 04/30/22 08:59 Last Admin: 04/02/22 08:46 Dose: 10 units Levothyroxine Sodium (Levothyroxine Sodium 100 Mcg Tablet) 100 mcg PO DAILYBB PREETI Stop: 05/01/22 06:29 Last Admin: 04/03/22 06:14 Dose: 100 mcg Losartan Potassium (Losartan Potassium 50 Mg Tab) 50 mg PO QAM PREETI Stop: 05/03/22 08:59 Metoprolol Succinate (Metoprolol Succ 50mg Ext Rel Tab) 50 mg PO BID17 PREETI Stop: 04/30/22 16:59 Last Admin: 04/02/22 17:19 Dose: 50 mg Miscellaneous (Carbohydrates For Hypoglycemia ) 15 - 30 gm PO UD PRN PRN Reason: Hypoglycemia Protocol Stop: 04/29/22 16:37 Montelukast Sodium (Montelukast Sodium 10 Mg Tablet) 10 mg PO HS PREETI Stop: 04/30/22 20:59 Last Admin: 04/02/22 20:28 Dose: 10 mg Ondansetron HCl (Ondansetron Inj 2 Mg/Ml 2 Ml Vial) 4 mg IV Q4H PRN PRN Reason: Nausea And Vomiting Stop: 04/29/22 16:37 Pantoprazole Sodium (Pantoprazole 40 Mg Tab) 40 mg PO DAILY PREETI Stop: 04/30/22 09:14 Last Admin: 04/02/22 08:46 Dose: 40 mg Pregabalin (Pregabalin 50 Mg Cap) 50 mg PO BID PREETI Stop: 04/30/22 08:59 Last Admin: 04/02/22 20:34 Dose: 50 mg Sertraline HCl (Sertraline Hcl 100 Mg Tablet) 100 mg PO DAILY PREETI Stop: 04/30/22 08:59 Last Admin: 04/02/22 08:46 Dose: 100 mg Spironolactone (Spironolactone 25 Mg Tab) 25 mg PO QAM PREETI Stop: 05/03/22 08:59 Umeclidinium/Vilanterol (Umeclidinium/Vilanterol 62.5/25mcg 7 Puffs/Inhaler) 1 puffs INH DAILY PREETI Stop: 04/30/22 08:59 Last Admin: 04/02/22 08:48 Dose: 1 puffs
[2022-04-03] MEDS: INSULIN ASPART PER UNIT SC SCH ×4 (08:40→20:44)
[2022-04-03] MEDS: LANTUS PER UNIT CHARGE SQ SCH (08:40)
[2022-04-03] MEDS: DONEPEZIL HCL 5 MG TAB PO SCH (08:49)
[2022-04-03] MEDS: hydrALAZINE TAB 50 MG TAB PO SCH ×3 (08:49→20:33)
[2022-04-03] MEDS: SPIRONOLACTONE 25 MG TAB PO SCH (08:49)
[2022-04-03] MEDS: APIXABAN 5 MG TABLET PO SCH ×2 (08:50→20:34)
[2022-04-03] MEDS: SERTRALINE HCL 100 MG TABLET PO SCH (08:50)
[2022-04-03] MEDS: METOPROLOL SUCC 50MG EXT REL TAB PO SCH ×2 (08:50→17:35)
[2022-04-03] MEDS: LOSARTAN POTASSIUM 50 MG TAB PO SCH (08:50)
[2022-04-03] MEDS: dilTIAZem ER 180 MG CAPCR PO SCH ×2 (08:50→20:33)
[2022-04-03] MEDS: ASPIRIN 81 MG CHEW PO SCH (08:50)
[2022-04-03] MEDS: UMECLIDINIUM/VILANTEROL 62.5/25MCG 7 PUFFS/INHALER INH SCH (08:51)
[2022-04-03] MEDS: FLUTICASONE FUROATE 200MCG 14 PUFFS/INHALER INH SCH (08:51)
[2022-04-03] MEDS: PANTOprazole 40 MG TAB PO SCH (08:51)
[2022-04-03 08:53] LABS: BUN Creatinine Ratio 20.1 (10-20); Calcium 9.3 mg/dl (8.5-10.1); Est GFR (African American) 37.3 ml/min; Est GFR (Non-African American) 32.2 ml/min; Magnesium 2.1 mg/dl (1.7-2.4); Phosphorus 3.5 mg/dl (2.5-4.9); Potassium 4.1 mmol/L (3.5-5.1)
[2022-04-03] MEDS: PREGABALIN 50 MG CAP PO SCH ×2 (08:54→20:37)
--- NOTE | 2022-04-03 13:10 | Cardiology Progress Note ---
Date of Service April 03, 2022 Assessment & Plan (1) Paroxysmal atrial fibrillation with rapid ventricular response: (2) Chest pain: (3) Elevated troponin I level: (4) Pacemaker: (5) Hypertension: (6) Chronic kidney disease: Plan Patient is a 77-year-old female, limited historian with underlying mild dementia per reports. Her history is notable for paroxysmal atrial fibrillation with tachybradycardia syndrome and an indwelling pacemaker. Patient presents with symptomatic atrial fibrillation with rapid response with spontaneous conversion to sinus rhythm/atrial paced rhythm after IV metoprolol. Currently asymptomatic. Troponins minimally elevated but flat no evidence of evolution to suggest myocardial injury. Echocardiogram demonstrates normal to hyperdynamic LV systolic function, moderately elevated right heart pressures no significant valvular disease Issues addressed as follows 1. Paroxysmal atrial fibrillation: No recurrence since hospitalization. Patient chronically anticoagulated with Eliquis. 2. Longstanding hypertension on multiple drug regimen: 3. Tachybradycardia syndrome status post dual-chamber pacemaker insertion [employer] device. No arrhythmias on telemetry. Device functioning appropriately Patient clinically improved. Will need outpatient follow-up with [facility] cardiology. Patient planning on transitioning care from [place] to [place] 04/03/2022 Blood pressures and heart rate controlled patient asymptomatic Plan on discharge on current medical therapies. There is room to increase losartan as outpatient if persistent hypertension present Potassium levels improved with the addition of spironolactone Admission and Anticipated Discharge Date Admission Date: March 30, 2022 Subjective Patient was seen and examined, chart, medications, telemetry reviewed. Patient with good night blood pressure trending towards better control. No arrhythmias no acute patient complaints. Pleasant and oriented this morning Physical Exam Constitutional: + thin; no acute distress Eyes: PERRL, conjunctivae normal, anicteric sclerae ENMT: external ear and nose normal, oropharynx normal Neck: trachea midline, no thyromegaly Respiratory: normal respiratory effort, lungs clear to auscultation Cardiovascular: Rate/Rhythm: regular rate and regular rhythm Heart Sounds: normal S1 and normal S2 Vessels: no JVD Extremities: no edema Chest (Breasts): Chest: + pacemaker (Site without irritation or tenderness) Gastrointestinal (Abdomen): normal bowel sounds, soft, nontender, no hepatosplenomegaly Musculoskeletal: no cyanosis or clubbing, extremities motor strength 5/5 Neurologic: PERRL, EOMI, accommodation nl, no face palsy, no dysarthria Psychiatric: A+Ox3, euthymic affect Results & Data ([facility]) Vital Signs (Past 12 Hours) Vital Signs Temp Pulse Pulse Resp BP Pulse Ox O2 Del Method 04/03/22 12:26 36.7 C 59 L 19 164/75 H 95 Room Air 04/03/22 08:18 36.6 C 60 18 157/79 H 95 Nasal Cannula 04/03/22 08:01 60 04/03/22 04:17 94 Nasal Cannula 04/03/22 04:11 36.5 C 60 17 141/67 H 88 L Room Air O2 Flow Rate 04/03/22 12:26 04/03/22 08:18 0.5 04/03/22 08:01 04/03/22 04:17 2 04/03/22 04:11 Laboratory Results Laboratory Results - last 24 hr 04/02/22 04/02/22 04/03/22 16:23 19:37 07:44 Sodium Potassium Chloride Carbon Dioxide Anion Gap BUN Creatinine Est Cr Clr Drug Dosing Est GFR ( Amer) Est GFR (Non-Af Amer) BUN/Creatinine Ratio Glucose POC Glucose 116 H 113 H 126 H Calcium Phosphorus Magnesium 04/03/22 04/03/22 08:03 11:54 Sodium 140 Potassium 4.1 D Chloride 107 Carbon Dioxide 26 Anion Gap 7 BUN 31 H Creatinine 1.54 H Est Cr Clr Drug Dosing 30.0 Est GFR ( Amer) 37.3 Est GFR (Non-Af Amer) 32.2 BUN/Creatinine Ratio 20.1 H Glucose 140 H POC Glucose 111 H Calcium 9.3 Phosphorus 3.5 Magnesium 2.1
[2022-04-03] MEDS: MONTELUKAST SODIUM 10 MG TABLET PO SCH (20:34)
[2022-04-03] MEDS: ATORVASTATIN 40 MG TAB PO SCH (20:34)
[2022-04-04] MEDS ORDERED: hydrALAZINE HCL 20 MG/ML VIAL IV ONE (04:00)
[2022-04-04] MEDS: LEVOTHYROXINE SODIUM 100 MCG TABLET PO SCH (06:35)
[2022-04-04 06:52] LABS: BUN Creatinine Ratio 24.6 (10-20); Calcium 9.3 mg/dl (8.5-10.1); Creatinine Clr Calc Pharmacy 33.5 ml/min; Est GFR (African American) 42.6 ml/min; Est GFR (Non-African American) 36.8 ml/min; Potassium 3.8 mmol/L (3.5-5.1)
[2022-04-04] MEDS: SPIRONOLACTONE 25 MG TAB PO SCH (08:37)
[2022-04-04] MEDS: DONEPEZIL HCL 5 MG TAB PO SCH (08:38)
[2022-04-04] MEDS: LOSARTAN POTASSIUM 50 MG TAB PO SCH (08:38)
[2022-04-04] MEDS: PANTOprazole 40 MG TAB PO SCH (08:38)
[2022-04-04] MEDS: hydrALAZINE TAB 50 MG TAB PO SCH ×3 (08:38→19:49)
[2022-04-04] MEDS: SERTRALINE HCL 100 MG TABLET PO SCH (08:38)
[2022-04-04] MEDS: ASPIRIN 81 MG CHEW PO SCH (08:38)
[2022-04-04] MEDS: METOPROLOL SUCC 50MG EXT REL TAB PO SCH ×2 (08:38→17:00)
[2022-04-04] MEDS: UMECLIDINIUM/VILANTEROL 62.5/25MCG 7 PUFFS/INHALER INH SCH (08:38)
[2022-04-04] MEDS: dilTIAZem ER 180 MG CAPCR PO SCH ×2 (08:38→19:48)
[2022-04-04] MEDS: APIXABAN 5 MG TABLET PO SCH ×2 (08:38→19:48)
[2022-04-04] MEDS: FLUTICASONE FUROATE 200MCG 14 PUFFS/INHALER INH SCH (08:39)
[2022-04-04] MEDS: PREGABALIN 50 MG CAP PO SCH ×2 (08:43→19:50)
[2022-04-04] MEDS: INSULIN ASPART PER UNIT SC SCH ×4 (08:43→20:35)
[2022-04-04] MEDS: LANTUS PER UNIT CHARGE SQ SCH (08:44)
--- NOTE | 2022-04-04 08:48 | Hospitalist Progress Note ---
Date of Service April 04, 2022 Assessment & Plan (1) Chest pain: Plan: Chest pain secondary to Afib w/ RVR , possibly secondary to HTN (2) Hypokalemia: (3) Pacemaker: (4) Atrial fibrillation: (5) CHF (congestive heart failure): (6) Hypertension: (7) Hyperlipidemia: Plan: - Admit to tele - Trend cardiac biomarkers, initial set was 19.1, currently without any chest complaints or symptoms - EKG reviewed as above - initially was in afib with RVR? Appears paced on monitor with HR in the mid 60s at time of my initial evaluation - Check 2 D echo - HIM requesting records from [facility] for most recent hospitalization as well as cardiology notes -Appears to be euvolemic, per nursing personnel at her bedside has not required recent Lasix administration, takes only as needed for leg edema -Continued initially on Cardizem ER, hydralazine, losartan/HCTZ, metoprolol succinate -Anticoagulated on Eliquis for A. fib -Hypokalemia was found at 3.1, replaced p.o. - PT/OT consulted -CT of the chest is negative for any PE -Pacemaker noted -Recent chest wall hematoma evacuation occurred on 03/16/2022, measured 4 x 1 x 3 cm large, at this time unknown etiology, requesting records as above Cardiology was consulted, increased her metoprolol succinate to 50 mg twice a day. Continue extensive antihypertensive therapy with anticoagulation with Eliquis. Increased hydralazine to 50 mg TID. Patient was hypokalemic on admission, and spironolactone 25 mg was also added. DC HCTZ d/t hypokalemia. Cont. w/ Losartan 50 mg daily. 04/04 BP improved at 155/72 (8) Diabetes mellitus: Plan: -Heart healthy/diabetic diet, Lantus 10 units every morning continued, ISS with Accu-Cheks ACHS -last A1c is 6.8 on 03/23/2022 [facility] - LDL 83 (9) Chronic kidney disease: Plan: -Records indicate stage III CKD, BUN 22, creatinine 1.01 (10) Gastroesophageal reflux: Plan: -History of hiatal hernia, continue omeprazole, possible indigestion-like symptoms being referred into the chest? Continue cardiac work-up as above (11) Depression: Plan: -May continue Zoloft 100 mg daily (12) Dementia: Plan: -Mild to moderate with history of auditory and visual hallucinations, currently no hallucinations noted, pt is alert, awake oriented x3. -Continue Aricept 5 mg daily -No history of psychotic features or behavioral disturbances, if develops then consider psychiatry consultation (13) Hypothyroid: Plan: - Continue levothyroxine, will add on TSH and free T4 with hx of afib DVT ppx: - teds, scds CODE: DNR/DNI- discussed with the patient at bedside Dispo: Plan to DC to [facility] Admission and Anticipated Discharge Date Admission Date: March 30, 2022 Subjective Pt seen in follow up of chest pain, Afib w/ RVR BP initially poorly controlled, however now blood pressure control improved Currently she is sitting up in bed, in no distress,reports feeling better Denies any chest pain or shortness of breath, or palpitation Denies fevers chills abdominal pain, nausea or vomiting Plan to DC back to [facility], needs prior auth Review of Systems Review of Systems: All systems reviewed & are unremarkable except as noted in Subjective Physical Exam Physical Exam: General: awake, alert, in NAD Head: Normocephalic, atraumatic ENT: PERRL, EOMI Chest: diminished breath sounds at bases, no wheezing Cardiac: RRR, no murmur, no JVD Abdominal: NABS x 4 quadrants, soft, nondistended, nontender to palpation Extremities: + Dry skin Normal inspection, no peripheral edema or erythema Psych: Normal mood and affect Neuro: Awake and alert, able to answer questions appropriately, speech fluent, moves extremities Results & Data Results & Data ([facility]) Vital Signs (Past 12 Hours) Vital Signs Temp Pulse Pulse Resp BP BP Pulse Ox 04/04/22 07:27 36.7 C 60 18 171/82 H 92 04/04/22 06:07 58 L 162/75 H 04/04/22 03:41 36.3 C L 59 L 20 200/83 H 90 04/04/22 00:00 60 04/03/22 22:56 36.6 C 88 16 157/74 H 93 O2 Del Method 04/04/22 07:27 Room Air 04/04/22 06:07 04/04/22 03:41 Room Air 04/04/22 00:00 04/03/22 22:56 Room Air Laboratory Results 04/04/22 04/04/22 04/03/22 Range/Units 08:21 05:40 20:39 Sodium 139 (136-145) mmol/L Potassium 3.8 (3.5-5.1) mmol/L Chloride 108 H (98-107) mmol/L Carbon Dioxide 23 (21-32) mmol/L Anion Gap 8 (3-11) BUN 34 H (6-23) mg/dl Creatinine 1.38 H (0.6-1.2) mg/dl Est Cr Clr Drug Dosing 33.5 ml/min Est GFR ( Amer) 42.6 ml/min Est GFR (Non-Af Amer) 36.8 ml/min BUN/Creatinine Ratio 24.6 H (10-20) Glucose 139 H (70-99(Fasting)) mg/dl POC Glucose 157 H 128 H (70-99) mg/dl Calcium 9.3 (8.5-10.1) mg/dl Phosphorus 3.0 (2.5-4.9) mg/dl Magnesium 2.0 (1.7-2.4) mg/dl 04/03/22 04/03/22 04/03/22 Range/Units 16:59 11:54 08:03 Sodium 140 (136-145) mmol/L Potassium 4.1 D (3.5-5.1) mmol/L Chloride 107 (98-107) mmol/L Carbon Dioxide 26 (21-32) mmol/L Anion Gap 7 (3-11) BUN 31 H (6-23) mg/dl Creatinine 1.54 H (0.6-1.2) mg/dl Est Cr Clr Drug Dosing 30.0 ml/min Est GFR ( Amer) 37.3 ml/min Est GFR (Non-Af Amer) 32.2 ml/min BUN/Creatinine Ratio 20.1 H (10-20) Glucose 140 H (70-99(Fasting)) mg/dl POC Glucose 113 H 111 H (70-99) mg/dl Calcium 9.3 (8.5-10.1) mg/dl Phosphorus 3.5 (2.5-4.9) mg/dl Magnesium 2.1 (1.7-2.4) mg/dl Medications Administered Current Inpatient Medications Acetaminophen (Acetaminophen 325 Mg Tab) 650 mg PO Q4H PRN PRN Reason: Moderate Pain Stop: 04/29/22 16:37 Apixaban (Apixaban 5 Mg Tablet) 5 mg PO BID [facility] Stop: 04/30/22 08:59 Last Admin: 04/04/22 08:38 Dose: 5 mg Aspirin (Aspirin 81 Mg Chew) 81 mg PO DAILY [facility] Stop: 04/30/22 08:59 Last Admin: 04/04/22 08:38 Dose: 81 mg Atorvastatin Calcium (Atorvastatin 40 Mg Tab) 40 mg PO HS [facility] Stop: 04/30/22 20:59 Last Admin: 04/03/22 20:34 Dose: 40 mg Dextrose (Dextrose 50% 50 Ml Syringe) 25 - 50 ml IV UD PRN; Protocol PRN Reason: Hypoglycemia Protocol Stop: 04/29/22 16:37 Diltiazem HCl (Diltiazem Er 180 Mg Capcr) 180 mg PO BID [facility] Stop: 04/30/22 10:29 Last Admin: 04/04/22 08:38 Dose: 180 mg Donepezil HCl (Donepezil Hcl 5 Mg Tab) 5 mg PO DAILY [facility] Stop: 04/30/22 08:59 Last Admin: 04/04/22 08:38 Dose: 5 mg Fluticasone Furoate (Fluticasone Furoate 200mcg 14 Puffs/Inhaler) 1 puffs INH DAILY [facility] Stop: 04/30/22 08:59 Last Admin: 04/04/22 08:39 Dose: 1 puffs Glucagon (Glucagon For Inj 1 Mg Vial) 1 mg SQ UD PRN; Protocol PRN Reason: Hypoglycemia Protocol Stop: 04/29/22 16:37 Glucose (Glucose 40% Gel 15 Gm Tube) 15 - 30 gm PO UD PRN; Protocol PRN Reason: Hypoglycemia Protocol Stop: 04/29/22 16:37 Glucose (Glucose 10 Tab/Tube) 4 - 8 tab PO UD PRN; Protocol PRN Reason: Hypoglycemia Treatment Stop: 04/29/22 16:37 Hydralazine HCl (Hydralazine Tab 50 Mg Tab) 50 mg PO TID [facility] Stop: 05/02/22 13:59 Last Admin: 04/04/22 08:38 Dose: 50 mg Insulin Aspart (Insulin Aspart Per Unit) 0 units SC ACHS [facility] Stop: 04/29/22 16:59 Last Admin: 04/04/22 08:43 Dose: 6 units Insulin Glargine (Lantus Per Unit Charge) 10 units SQ QAM [facility] Stop: 04/30/22 08:59 Last Admin: 04/04/22 08:44 Dose: 10 units Levothyroxine Sodium (Levothyroxine Sodium 100 Mcg Tablet) 100 mcg PO DAILYBB [facility] Stop: 05/01/22 06:29 Last Admin: 04/04/22 06:35 Dose: 100 mcg Losartan Potassium (Losartan Potassium 50 Mg Tab) 50 mg PO QAM [facility] Stop: 05/03/22 08:59 Last Admin: 04/04/22 08:38 Dose: 50 mg Metoprolol Succinate (Metoprolol Succ 50mg Ext Rel Tab) 50 mg PO BID17 [facility] Stop: 04/30/22 16:59 Last Admin: 04/04/22 08:38 Dose: 50 mg Miscellaneous (Carbohydrates For Hypoglycemia ) 15 - 30 gm PO UD PRN PRN Reason: Hypoglycemia Protocol Stop: 04/29/22 16:37 Montelukast Sodium (Montelukast Sodium 10 Mg Tablet) 10 mg PO HS [facility] Stop: 04/30/22 20:59 Last Admin: 04/03/22 20:34 Dose: 10 mg Ondansetron HCl (Ondansetron Inj 2 Mg/Ml 2 Ml Vial) 4 mg IV Q4H PRN PRN Reason: Nausea And Vomiting Stop: 04/29/22 16:37 Pantoprazole Sodium (Pantoprazole 40 Mg Tab) 40 mg PO DAILY [facility] Stop: 04/30/22 09:14 Last Admin: 04/04/22 08:38 Dose: 40 mg Pregabalin (Pregabalin 50 Mg Cap) 50 mg PO BID [facility] Stop: 04/30/22 08:59 Last Admin: 04/04/22 08:43 Dose: 50 mg Sertraline HCl (Sertraline Hcl 100 Mg Tablet) 100 mg PO DAILY [facility] Stop: 04/30/22 08:59 Last Admin: 04/04/22 08:38 Dose: 100 mg Spironolactone (Spironolactone 25 Mg Tab) 25 mg PO QAM [facility] Stop: 05/03/22 08:59 Last Admin: 04/04/22 08:37 Dose: 25 mg Umeclidinium/Vilanterol (Umeclidinium/Vilanterol 62.5/25mcg 7 Puffs/Inhaler) 1 puffs INH DAILY [facility] Stop: 04/30/22 08:59 Last Admin: 04/04/22 08:38 Dose: 1 puffs
--- NOTE | 2022-04-04 15:44 | Cardiology Progress Note ---
Date of Service April 04, 2022 Assessment & Plan (1) Paroxysmal atrial fibrillation with rapid ventricular response: (2) Chest pain: (3) Elevated troponin I level: (4) Pacemaker: (5) Hypertension: (6) Chronic kidney disease: Plan Patient is a 77-year-old female, limited historian with underlying mild dementia per reports. Her history is notable for paroxysmal atrial fibrillation with tachybradycardia syndrome and an indwelling pacemaker. Patient presents with symptomatic atrial fibrillation with rapid response with spontaneous conversion to sinus rhythm/atrial paced rhythm after IV metoprolol. Currently asymptomatic. Troponins minimally elevated but flat no evidence of evolution to suggest myocardial injury. Echocardiogram demonstrates normal to hyperdynamic LV systolic function, moderately elevated right heart pressures no significant valvular disease Issues addressed as follows 1. Paroxysmal atrial fibrillation: No recurrence since hospitalization. Patient chronically anticoagulated with Eliquis. 2. Longstanding hypertension on multiple drug regimen: 3. Tachybradycardia syndrome status post dual-chamber pacemaker insertion [place] device. No arrhythmias on telemetry. Device functioning appropriately Patient clinically improved. Will need outpatient follow-up with [facility] cardiology. Patient planning on transitioning care from [place] to [place] 04/04/2022 patient stable with no further arrhythmias. Current medical regimen to be continued on discharge Follow-up with cardiology 2 to 4 weeks post discharge We will sign off call with question Admission and Anticipated Discharge Date Admission Date: March 30, 2022 Subjective Patient seen and examined, chart, medications, telemetry reviewed. No complaints. No further nocturnal issues. Telemetry reveals sinus and atrial paced rhythm. No atrial fibrillation. Blood pressures trending towards better control tolerating current medical re gimen Renal function stable Review of Systems Review of Systems: All systems reviewed & are unremarkable except as noted in Subjective Physical Exam Constitutional: + thin; no acute distress Eyes: PERRL, conjunctivae normal, anicteric sclerae ENMT: external ear and nose normal, oropharynx normal Neck: trachea midline, no thyromegaly Respiratory: normal respiratory effort, lungs clear to auscultation Cardiovascular: Rate/Rhythm: regular rate and regular rhythm Heart Sounds: normal S1 and normal S2 Vessels: no JVD Extremities: no edema Chest (Breasts): Chest: + pacemaker (Site without irritation or tenderness) Gastrointestinal (Abdomen): normal bowel sounds, soft, nontender, no hepatosplenomegaly Musculoskeletal: no cyanosis or clubbing, extremities motor strength 5/5 Neurologic: PERRL, EOMI, accommodation nl, no face palsy, no dysarthria Psychiatric: A+Ox3, euthymic affect Results & Data ([facility]) Vital Signs (Past 12 Hours) Vital Signs Temp Pulse Pulse Resp BP BP Pulse Ox 04/04/22 11:24 36.7 C 60 18 155/72 H 93 04/04/22 08:00 60 04/04/22 07:27 36.7 C 60 18 171/82 H 92 04/04/22 06:07 58 L 162/75 H O2 Del Method 04/04/22 11:24 Room Air 04/04/22 08:00 04/04/22 07:27 Room Air 04/04/22 06:07 Laboratory Results Laboratory Results - last 24 hr 04/03/22 04/03/22 04/04/22 16:59 20:39 05:40 Sodium 139 Potassium 3.8 Chloride 108 H Carbon Dioxide 23 Anion Gap 8 BUN 34 H Creatinine 1.38 H Est Cr Clr Drug Dosing 33.5 Est GFR ( Amer) 42.6 Est GFR (Non-Af Amer) 36.8 BUN/Creatinine Ratio 24.6 H Glucose 139 H POC Glucose 113 H 128 H Calcium 9.3 Phosphorus 3.0 Magnesium 2.0 04/04/22 04/04/22 08:21 12:17 Sodium Potassium Chloride Carbon Dioxide Anion Gap BUN Creatinine Est Cr Clr Drug Dosing Est GFR ( Amer) Est GFR (Non-Af Amer) BUN/Creatinine Ratio Glucose POC Glucose 157 H 225 H Calcium Phosphorus Magnesium
[2022-04-04] MEDS: ATORVASTATIN 40 MG TAB PO SCH (19:48)
[2022-04-04] MEDS: MONTELUKAST SODIUM 10 MG TABLET PO SCH (19:48)
[2022-04-04] MEDS ORDERED: LORazepam 0.5 MG TAB PO STA (21:33)
[2022-04-04] MEDS ORDERED: hydrALAZINE HCL 20 MG/ML VIAL IV PRN (23:16)
[2022-04-05] MEDS ORDERED: cloNIDine HCL 0.1 MG TAB PO ONE (00:21)
[2022-04-05] MEDS ORDERED: LORazepam 0.25 MG in SYRINGE 0 ML IV STA (00:33)
[2022-04-05] MEDS: LEVOTHYROXINE SODIUM 100 MCG TABLET PO SCH (06:20)
[2022-04-05] MEDS: dilTIAZem ER 180 MG CAPCR PO SCH ×2 (08:35→20:34)
[2022-04-05] MEDS: ASPIRIN 81 MG CHEW PO SCH (08:35)
[2022-04-05] MEDS: APIXABAN 5 MG TABLET PO SCH ×2 (08:35→20:34)
[2022-04-05] MEDS: hydrALAZINE TAB 50 MG TAB PO SCH ×3 (08:36→20:35)
[2022-04-05] MEDS: FLUTICASONE FUROATE 200MCG 14 PUFFS/INHALER INH SCH (08:36)
[2022-04-05] MEDS: DONEPEZIL HCL 5 MG TAB PO SCH (08:36)
[2022-04-05] MEDS: UMECLIDINIUM/VILANTEROL 62.5/25MCG 7 PUFFS/INHALER INH SCH (08:36)
[2022-04-05] MEDS: LOSARTAN POTASSIUM 50 MG TAB PO SCH ×2 (08:37→20:35)
[2022-04-05] MEDS: METOPROLOL SUCC 50MG EXT REL TAB PO SCH ×2 (08:37→17:17)
[2022-04-05] MEDS: PANTOprazole 40 MG TAB PO SCH (08:38)
[2022-04-05] MEDS: SERTRALINE HCL 100 MG TABLET PO SCH (08:38)
[2022-04-05] MEDS: PREGABALIN 50 MG CAP PO SCH ×2 (08:38→20:42)
[2022-04-05] MEDS: SPIRONOLACTONE 25 MG TAB PO SCH (08:38)
[2022-04-05] MEDS: INSULIN ASPART PER UNIT SC SCH ×4 (08:45→20:41)
[2022-04-05] MEDS: LANTUS PER UNIT CHARGE SQ SCH (08:46)
--- NOTE | 2022-04-05 16:44 | Hospitalist Progress Note ---
Date of Service April 05, 2022 Assessment & Plan (1) Chest pain: Plan: Chest pain secondary to Afib w/ RVR , possibly secondary to HTN-resolved. Work- up revealed this was not secondary to ACS. (2) Atrial fibrillation: Plan: History of paroxysmal atrial fibrillation. She spontaneously converted to sinus rhythm after IV metoprolol was given. She remains asymptomatic and in sinus rhythm/atrial paced rhythm. She has a known pacemaker present. Continue current regimen including diltiazem, metoprolol and Eliquis. (3) Hypertension: Plan: Longstanding uncontrolled hypertension. Blood pressure remains elevated today at 172/75 but overall has improved with multiple changes. Earlier in the day she was controlled with a systolic blood pressure of 1 15-1 30. Continue current regimen including hydralazine 50 mg p.o. 3 times daily, diltiazem 180 mg p.o. twice daily, Toprol-XL 50 mg p.o. twice daily, Aldactone 25 mg p.o. every morning, losartan 50 mg p.o. twice daily. Notably HCTZ has been held and she has acute kidney injury so we will continue to hold diuretics at this time. We will continue to monitor while she is in inpatient. (4) Hypokalemia: Plan: Resolved after replacement. (5) Acute kidney injury superimposed on chronic kidney disease: Plan: Baseline creatinine is around 1 with current creatinine 1.38 down from 1.542 days ago. She continues on losartan per home dose 50 mg daily. HCTZ has been held. She continues on spironolactone 25 mg p.o. every morning and has not been given Lasix today. We will repeat BMP in a.m (6) Hyperlipidemia: Plan: Chronic, at goal, continue atorvastatin 40 mg p.o. nightly per home regimen. (7) Diabetes mellitus: Plan: Well-controlled diabetic with A1c at goal. She is on basal bolus insulin at home and continues on this as inpatient. Current sugars are controlled. Continue current regimen. (8) Gastroesophageal reflux: Plan: chronic, stable. Denies symptoms. History of hiatal hernia, continue omeprazole per home regimen. (9) Depression: Plan: chronic, stable. Cont Zoloft 100mg PO daily per home regimen. (10) Dementia: Plan: -Mild to moderate with history of auditory and visual hallucinations, currently not present. -Continue Aricept 5 mg daily per home regimen. (11) Hypothyroid: Plan: chronic, stable. Cont levothyroxine per home regimen. (12) DVT prophylaxis: Plan: Apixaban CODE: DNR/DNI Dispo: Plan to DC to [facility], awaiting authorization. Antionette Sands DO [facility] Hospitalist Admission and Anticipated Discharge Date Admission Date: March 30, 2022 Subjective 77-year-old female with underlying mild dementia presented with symptomatic atrial fibrillation with rapid ventricular response with spontaneous conversion to sinus rhythm/atrial paced rhythm after IV metoprolol. She remains asympto matic at this time. Elevated blood pressure has also improved with current multidrug regimen. She is awaiting placement at long-term care facility and has no issues this evening. Review of Systems Review of Systems: All systems reviewed negative except as indicated above. Physical Exam Constitutional: CONSTITUTIONAL: WNWD, vitals as above, generally well- appearing, NAD, sitting up independently at bedside. EYES: normal conjunctivae, no scleral icterus ENT: external ear and nose normal, MMM NECK: trachea midline, RESPIRATORY: clear to auscultation bilaterally, no crackles, rales or wheezes, normal respiratory effort CARDIOVASCULAR: regular rate and rhythm, S1 and 2 heard without murmurs, gallops or rubs, no JVD, no peripheral edema CHEST: inspection reveals pacemaker to left anterior chest GASTROINTESTINAL: soft, nontender, ND, no guarding MUSCULOSKELETAL: strength 5/5 throughout, head is normocephalic and atraumatic SKIN: warm and dry, NEUROLOGIC: CN 2-12 grossly intact, no sensory deficit, normal cognition, normal speech, no tremor PSYCHIATRIC: alert cooperative and answering questions appropriately Results & Data Results & Data [facility]) Vital Signs (Past 12 Hours) Vital Signs Temp Pulse Pulse Resp BP BP Pulse Ox 04/05/22 15:57 36.9 C 60 19 169/70 H 95 04/05/22 14:26 60 04/05/22 11:39 36.8 C 59 L 19 130/68 96 04/05/22 08:17 37.0 C 60 19 160/74 H 92 04/05/22 07:35 60 O2 Del Method 04/05/22 15:57 Room Air 04/05/22 14:26 04/05/22 11:39 Room Air 04/05/22 08:17 Room Air 04/05/22 07:35 Medications Administered Current Inpatient Medications Acetaminophen (Acetaminophen 325 Mg Tab) 650 mg PO Q4H PRN PRN Reason: Moderate Pain Stop: 04/29/22 16:37 Apixaban (Apixaban 5 Mg Tablet) 5 mg PO BID [facility] Stop: 04/30/22 08:59 Last Admin: 04/05/22 08:35 Dose: 5 mg Aspirin (Aspirin 81 Mg Chew) 81 mg PO DAILY [facility] Stop: 04/30/22 08:59 Last Admin: 04/05/22 08:35 Dose: 81 mg Atorvastatin Calcium (Atorvastatin 40 Mg Tab) 40 mg PO HS [facility] Stop: 04/30/22 20:59 Last Admin: 04/04/22 19:48 Dose: 40 mg Dextrose (Dextrose 50% 50 Ml Syringe) 25 - 50 ml IV UD PRN; Protocol PRN Reason: Hypoglycemia Protocol Stop: 04/29/22 16:37 Diltiazem HCl (Diltiazem Er 180 Mg Capcr) 180 mg PO BID [facility] Stop: 04/30/22 10:29 Last Admin: 04/05/22 08:35 Dose: 180 mg Donepezil HCl (Donepezil Hcl 5 Mg Tab) 5 mg PO DAILY [facility] Stop: 04/30/22 08:59 Last Admin: 04/05/22 08:36 Dose: 5 mg Fluticasone Furoate (Fluticasone Furoate 200mcg 14 Puffs/Inhaler) 1 puffs INH DAILY [facility] Stop: 04/30/22 08:59 Last Admin: 04/05/22 08:36 Dose: 1 puffs Glucagon (Glucagon For Inj 1 Mg Vial) 1 mg SQ UD PRN; Protocol PRN Reason: Hypoglycemia Protocol Stop: 04/29/22 16:37 Glucose (Glucose 40% Gel 15 Gm Tube) 15 - 30 gm PO UD PRN; Protocol PRN Reason: Hypoglycemia Protocol Stop: 04/29/22 16:37 Glucose (Glucose 10 Tab/Tube) 4 - 8 tab PO UD PRN; Protocol PRN Reason: Hypoglycemia Treatment Stop: 04/29/22 16:37 Hydralazine HCl (Hydralazine Tab 50 Mg Tab) 50 mg PO TID [facility] Stop: 05/02/22 13:59 Last Admin: 04/05/22 13:31 Dose: 50 mg Insulin Aspart (Insulin Aspart Per Unit) 0 units SC ACHS [facility] Stop: 04/29/22 16:59 Last Admin: 04/05/22 12:45 Dose: 4 units Insulin Glargine (Lantus Per Unit Charge) 10 units SQ QAM [facility] Stop: 04/30/22 08:59 Last Admin: 04/05/22 08:46 Dose: 10 units Levothyroxine Sodium (Levothyroxine Sodium 100 Mcg Tablet) 100 mcg PO DAILYBB [facility] Stop: 05/01/22 06:29 Last Admin: 04/05/22 06:20 Dose: 100 mcg Losartan Potassium (Losartan Potassium 50 Mg Tab) 50 mg PO BID [facility] Stop: 05/05/22 20:59 Metoprolol Succinate (Metoprolol Succ 50mg Ext Rel Tab) 50 mg PO BID17 [facility] Stop: 04/30/22 16:59 Last Admin: 04/05/22 08:37 Dose: 50 mg Miscellaneous (Carbohydrates For Hypoglycemia ) 15 - 30 gm PO UD PRN PRN Reason: Hypoglycemia Protocol Stop: 04/29/22 16:37 Montelukast Sodium (Montelukast Sodium 10 Mg Tablet) 10 mg PO HS [facility] Stop: 04/30/22 20:59 Last Admin: 04/04/22 19:48 Dose: 10 mg Ondansetron HCl (Ondansetron Inj 2 Mg/Ml 2 Ml Vial) 4 mg IV Q4H PRN PRN Reason: Nausea And Vomiting Stop: 04/29/22 16:37 Pantoprazole Sodium (Pantoprazole 40 Mg Tab) 40 mg PO DAILY [facility] Stop: 04/30/22 09:14 Last Admin: 04/05/22 08:38 Dose: 40 mg Pregabalin (Pregabalin 50 Mg Cap) 50 mg PO BID [facility] Stop: 04/30/22 08:59 Last Admin: 04/05/22 08:38 Dose: 50 mg Sertraline HCl (Sertraline Hcl 100 Mg Tablet) 100 mg PO DAILY [facility] Stop: 04/30/22 08:59 Last Admin: 04/05/22 08:38 Dose: 100 mg Spironolactone (Spironolactone 25 Mg Tab) 25 mg PO QAM [facility] Stop: 05/03/22 08:59 Last Admin: 04/05/22 08:38 Dose: 25 mg Umeclidinium/Vilanterol (Umeclidinium/Vilanterol 62.5/25mcg 7 Puffs/Inhaler) 1 puffs INH DAILY [facility] Stop: 04/30/22 08:59 Last Admin: 04/05/22 08:36 Dose: 1 puffs (1) Dementia Dementia type: unspecified type (2) Hypothyroid Hypothyroidism type: unspecified Qualified Code(s): E03.9 - Hypothyroidism, unspecified
[2022-04-05] MEDS: ATORVASTATIN 40 MG TAB PO SCH (20:35)
[2022-04-05] MEDS: MONTELUKAST SODIUM 10 MG TABLET PO SCH (20:35)
[2022-04-06] MEDS: LEVOTHYROXINE SODIUM 100 MCG TABLET PO SCH (06:00)
[2022-04-06 06:36] LABS: BUN Creatinine Ratio 30.4 (10-20); Calcium 9.1 mg/dl (8.5-10.1); Creatinine Clr Calc Pharmacy 34.1 ml/min; Est GFR (African American) 43.8 ml/min; Est GFR (Non-African American) 37.8 ml/min; Potassium 4.4 mmol/L (3.5-5.1)
[2022-04-06] MEDS: LOSARTAN POTASSIUM 50 MG TAB PO SCH ×2 (08:29→20:01)
[2022-04-06] MEDS: METOPROLOL SUCC 50MG EXT REL TAB PO SCH ×2 (08:29→18:05)
[2022-04-06] MEDS: ASPIRIN 81 MG CHEW PO SCH (08:31)
[2022-04-06] MEDS: INSULIN ASPART PER UNIT SC SCH ×4 (08:31→21:31)
[2022-04-06] MEDS: APIXABAN 5 MG TABLET PO SCH ×2 (08:31→20:01)
[2022-04-06] MEDS: PANTOprazole 40 MG TAB PO SCH (08:31)
[2022-04-06] MEDS: SPIRONOLACTONE 25 MG TAB PO SCH (08:31)
[2022-04-06] MEDS: dilTIAZem ER 180 MG CAPCR PO SCH ×2 (08:31→20:02)
[2022-04-06] MEDS: SERTRALINE HCL 100 MG TABLET PO SCH (08:31)
[2022-04-06] MEDS: hydrALAZINE TAB 50 MG TAB PO SCH ×3 (08:31→20:02)
[2022-04-06] MEDS: DONEPEZIL HCL 5 MG TAB PO SCH (08:31)
[2022-04-06] MEDS: FLUTICASONE FUROATE 200MCG 14 PUFFS/INHALER INH SCH (08:32)
[2022-04-06] MEDS: LANTUS PER UNIT CHARGE SQ SCH (08:33)
[2022-04-06] MEDS: UMECLIDINIUM/VILANTEROL 62.5/25MCG 7 PUFFS/INHALER INH SCH (08:34)
[2022-04-06] MEDS: PREGABALIN 50 MG CAP PO SCH ×2 (08:35→20:05)
--- NOTE | 2022-04-06 11:13 | Hospitalist Progress Note ---
Date of Service April 06, 2022 Assessment & Plan (1) Chest pain: Plan: Chest pain secondary to Afib w/ RVR , possibly secondary to HTN-resolved. Work- up revealed this was not secondary to ACS. (2) Atrial fibrillation: Plan: History of paroxysmal atrial fibrillation. She spontaneously converted to sinus rhythm after IV metoprolol was given. She remains asymptomatic and in sinus rhythm/atrial paced rhythm. She has a known pacemaker present. Continue current regimen including diltiazem, metoprolol and Eliquis. (3) Hypertension: Plan: Longstanding uncontrolled hypertension. Blood pressure has improved today after multiple changes this admission. Continue current regimen including hydralazine 50 mg p.o. 3 times daily, diltiazem 180 mg p.o. twice daily, Toprol-XL 50 mg p.o. twice daily, Aldactone 25 mg p.o. every morning, losartan 50 mg p.o. twice daily. Notably HCTZ has been held and she has acute kidney injury so we will continue to hold diuretics at this time. We will continue to monitor while she is in inpatient. (4) Hypokalemia: Plan: Resolved after replacement and with holding HCTZ/adding aldactone. (5) Acute kidney injury superimposed on chronic kidney disease: Plan: Baseline creatinine is around 1 with current creatinine 1.35 down from 1.542 days ago. She continues on losartan at twice her daily home dose which may be the cause of the higher creatinine we are seeing. HCTZ has been discontinued. She continues on spironolactone 25 mg p.o. every morning. Trend BMP in a.m (6) Hyperlipidemia: Plan: Chronic, at goal, continue atorvastatin 40 mg p.o. nightly per home regimen. (7) Diabetes mellitus: Plan: Well-controlled diabetic with A1c at goal. She is on basal bolus insulin at home and continues on this as inpatient. Current sugars are controlled. Continue current regimen. (8) Gastroesophageal reflux: Plan: chronic, stable. Denies symptoms. History of hiatal hernia, continue omeprazole per home regimen. (9) Depression: Plan: chronic, stable. Cont Zoloft 100mg PO daily per home regimen. (10) Dementia: Plan: -Mild to moderate with history of auditory and visual hallucinations, currently not present. -Continue Aricept 5 mg daily per home regimen. (11) Hypothyroid: Plan: chronic, stable. Cont levothyroxine per home regimen. (12) DVT prophylaxis: Plan: Apixaban CODE: DNR/DNI Dispo: Plan to DC to [facility], awaiting authorization. [facility] Admission and Anticipated Discharge Date Admission Date: March 30, 2022 Subjective 77-year-old female with underlying mild dementia presented with symptomatic atrial fibrillation with rapid ventricular response with spontaneous conversion to sinus rhythm/atrial paced rhythm after IV metoprolol. She remains asymptomatic at this time. Elevated blood pressure has also improved with current multidrug regimen. Stable in the 120-140 systolic range. She is awaiting placement at long-term care facility and has no issues this evening except constipation and we are providing a stool softener. Review of Systems Review of Systems: All systems reviewed negative except as indicated above. Physical Exam Constitutional: CONSTITUTIONAL: WNWD, vitals as above, generally well- appearing, NAD EYES: normal conjunctivae, no scleral icterus ENT: external ear and nose normal, MMM NECK: trachea midline, RESPIRATORY: clear to auscultation bilaterally, no crackles, rales or wheezes, normal respiratory effort CARDIOVASCULAR: regular rate and rhythm, S1 and 2 heard without murmurs, gallops or rubs, no JVD, no peripheral edema CHEST: inspection reveals pacemaker to left anterior chest GASTROINTESTINAL: soft, nontender, ND, no guarding MUSCULOSKELETAL: strength 5/5 throughout, head is normocephalic and atraumatic SKIN: warm and dry, NEUROLOGIC: CN 2-12 grossly intact, no sensory deficit, normal cognition, normal speech, no tremor PSYCHIATRIC: alert cooperative and answering questions appropriately Results & Data Results & Data ([facility]) Vital Signs (Past 12 Hours) Vital Signs Temp Pulse Resp BP BP Pulse Ox O2 Del Method 04/06/22 11:02 36.5 C 60 19 148/68 H 94 Room Air 04/06/22 08:00 Room Air 04/06/22 07:00 36.7 C 60 19 146/65 H 94 Room Air 04/06/22 03:28 36.5 C 60 18 118/62 93 04/05/22 23:25 36.5 C 64 20 144/61 H 91 Room Air Laboratory Results [facility] 04/06/22 05:45 Sodium 137 Potassium 4.4 Chloride 107 Carbon Dioxide 26 BUN 41 H Creatinine 1.35 H Glucose 145 H Calcium 9.1 Medications Administered Current Inpatient Medications Acetaminophen (Acetaminophen 325 Mg Tab) 650 mg PO Q4H PRN PRN Reason: Moderate Pain Stop: 04/29/22 16:37 Apixaban (Apixaban 5 Mg Tablet) 5 mg PO BID PREETI Stop: 04/30/22 08:59 Last Admin: 04/06/22 08:31 Dose: 5 mg Aspirin (Aspirin 81 Mg Chew) 81 mg PO DAILY PREETI Stop: 04/30/22 08:59 Last Admin: 04/06/22 08:31 Dose: 81 mg Atorvastatin Calcium (Atorvastatin 40 Mg Tab) 40 mg PO HS PREETI Stop: 04/30/22 20:59 Last Admin: 04/05/22 20:35 Dose: 40 mg Dextrose (Dextrose 50% 50 Ml Syringe) 25 - 50 ml IV UD PRN; Protocol PRN Reason: Hypoglycemia Protocol Stop: 04/29/22 16:37 Diltiazem HCl (Diltiazem Er 180 Mg Capcr) 180 mg PO BID PREETI Stop: 04/30/22 10:29 Last Admin: 04/06/22 08:31 Dose: 180 mg Donepezil HCl (Donepezil Hcl 5 Mg Tab) 5 mg PO DAILY PREETI Stop: 04/30/22 08:59 Last Admin: 04/06/22 08:31 Dose: 5 mg Fluticasone Furoate (Fluticasone Furoate 200mcg 14 Puffs/Inhaler) 1 puffs INH DAILY PREETI Stop: 04/30/22 08:59 Last Admin: 04/06/22 08:32 Dose: 1 puffs Glucagon (Glucagon For Inj 1 Mg Vial) 1 mg SQ UD PRN; Protocol PRN Reason: Hypoglycemia Protocol Stop: 04/29/22 16:37 Glucose (Glucose 40% Gel 15 Gm Tube) 15 - 30 gm PO UD PRN; Protocol PRN Reason: Hypoglycemia Protocol Stop: 04/29/22 16:37 Glucose (Glucose 10 Tab/Tube) 4 - 8 tab PO UD PRN; Protocol PRN Reason: Hypoglycemia Treatment Stop: 04/29/22 16:37 Hydralazine HCl (Hydralazine Tab 50 Mg Tab) 50 mg PO TID PREETI Stop: 05/02/22 13:59 Last Admin: 04/06/22 08:31 Dose: 50 mg Insulin Aspart (Insulin Aspart Per Unit) 0 units SC ACHS PREETI Stop: 04/29/22 16:59 Last Admin: 04/06/22 08:31 Dose: 6 units Insulin Glargine (Lantus Per Unit Charge) 10 units SQ QAM PREETI Stop: 04/30/22 08:59 Last Admin: 04/06/22 08:33 Dose: 10 units Levothyroxine Sodium (Levothyroxine Sodium 100 Mcg Tablet) 100 mcg PO DAILYBB PREETI Stop: 05/01/22 06:29 Last Admin: 04/06/22 06:00 Dose: 100 mcg Losartan Potassium (Losartan Potassium 50 Mg Tab) 50 mg PO BID PREETI Stop: 05/05/22 20:59 Last Admin: 04/06/22 08:29 Dose: 50 mg Metoprolol Succinate (Metoprolol Succ 50mg Ext Rel Tab) 50 mg PO BID17 PREETI Stop: 04/30/22 16:59 Last Admin: 04/06/22 08:29 Dose: 50 mg Miscellaneous (Carbohydrates For Hypoglycemia ) 15 - 30 gm PO UD PRN PRN Reason: Hypoglycemia Protocol Stop: 04/29/22 16:37 Montelukast Sodium (Montelukast Sodium 10 Mg Tablet) 10 mg PO HS PREETI Stop: 04/30/22 20:59 Last Admin: 04/05/22 20:35 Dose: 10 mg Ondansetron HCl (Ondansetron Inj 2 Mg/Ml 2 Ml Vial) 4 mg IV Q4H PRN PRN Reason: Nausea And Vomiting Stop: 04/29/22 16:37 Pantoprazole Sodium (Pantoprazole 40 Mg Tab) 40 mg PO DAILY PREETI Stop: 04/30/22 09:14 Last Admin: 04/06/22 08:31 Dose: 40 mg Pregabalin (Pregabalin 50 Mg Cap) 50 mg PO BID PREETI Stop: 04/30/22 08:59 Last Admin: 04/06/22 08:35 Dose: 50 mg Sertraline HCl (Sertraline Hcl 100 Mg Tablet) 100 mg PO DAILY PREETI Stop: 04/30/22 08:59 Last Admin: 04/06/22 08:31 Dose: 100 mg Spironolactone (Spironolactone 25 Mg Tab) 25 mg PO QAM PREETI Stop: 05/03/22 08:59 Last Admin: 04/06/22 08:31 Dose: 25 mg Umeclidinium/Vilanterol (Umeclidinium/Vilanterol 62.5/25mcg 7 Puffs/Inhaler) 1 puffs INH DAILY PREETI Stop: 04/30/22 08:59 Last Admin: 04/06/22 08:34 Dose: 1 puffs (1) Dementia Dementia type: unspecified type (2) Hypothyroid Hypothyroidism type: unspecified Qualified Code(s): E03.9 - Hypothyroidism, unspecified
[2022-04-06] MEDS: MONTELUKAST SODIUM 10 MG TABLET PO SCH (20:01)
[2022-04-06] MEDS: ATORVASTATIN 40 MG TAB PO SCH (20:02)
[2022-04-07] MEDS: LEVOTHYROXINE SODIUM 100 MCG TABLET PO SCH (06:02)
[2022-04-07 08:39] LABS: BUN Creatinine Ratio 27.7 (10-20); Creatinine Clr Calc Pharmacy 31.1 ml/min; Est GFR (African American) 39.2 ml/min; Est GFR (Non-African American) 33.8 ml/min; Potassium 4.5 mmol/L (3.5-5.1)
[2022-04-07] MEDS: INSULIN ASPART PER UNIT SC SCH ×4 (09:07→20:27)
[2022-04-07] MEDS: LANTUS PER UNIT CHARGE SQ SCH (09:07)
[2022-04-07] MEDS: DONEPEZIL HCL 5 MG TAB PO SCH (09:08)
[2022-04-07] MEDS: ASPIRIN 81 MG CHEW PO SCH (09:08)
[2022-04-07] MEDS: SERTRALINE HCL 100 MG TABLET PO SCH (09:08)
[2022-04-07] MEDS: METOPROLOL SUCC 50MG EXT REL TAB PO SCH ×2 (09:09→16:52)
[2022-04-07] MEDS: APIXABAN 5 MG TABLET PO SCH ×2 (09:09→20:26)
[2022-04-07] MEDS: LOSARTAN POTASSIUM 50 MG TAB PO SCH (09:09)
[2022-04-07] MEDS: dilTIAZem ER 180 MG CAPCR PO SCH ×2 (09:10→20:26)
[2022-04-07] MEDS: PANTOprazole 40 MG TAB PO SCH (09:10)
[2022-04-07] MEDS: hydrALAZINE TAB 50 MG TAB PO SCH ×2 (09:10→14:39)
[2022-04-07] MEDS: SPIRONOLACTONE 25 MG TAB PO SCH (09:11)
[2022-04-07] MEDS: PREGABALIN 50 MG CAP PO SCH ×2 (09:11→20:33)
[2022-04-07] MEDS: FLUTICASONE FUROATE 200MCG 14 PUFFS/INHALER INH SCH (09:12)
--- NOTE | 2022-04-07 14:30 | Hospitalist Progress Note ---
Date of Service April 07, 2022 Assessment & Plan (1) Seizure-like activity: Plan: While in room repeating BP around 3:35p, patient had a brief episode of seizure- like activity including global convulsions and non-responsive verbally for a period of 40 seconds but no loss of consciousness RN was called into room and 1mg IV ativan ordered CODE PURPLE was called and patient stopped convulsing and appeared re-oriented and able to follow simple commands. No appearance of a post-ictal period. Stated that she had a "full body shock" Vitals were repeated with HR 60s, BP remained elevated and O2 sat 93% BSG 240. Repeat BPs coming down. Stat CT head:No acute intracranial abnormality. Atrophy and microvascular ischemic changes. History of seizures per history provided by [facility] but not on AEDs Also with history of hallucinations and depression, ? conversion disorder. Was very tearful on attending's exam earlier in afternoon, speaking when no one else in the room per RN. Psych consulted Moved to PCU for closer monitoring Fall, seizure precautions PRN Ativan, EEG ordered Telemetry monitoring (2) Hypertensive urgency: Plan: Longstanding uncontrolled hypertension with improvement from multiple medication changes during admission with current regimen including hydralazine 50 mg p.o. TID, diltiazem 180 mg p.o.BID, Toprol-XL 50 mg p.o. BID, Aldactone 25 mg daily, losartan 50 mg p.o. BID Elevated BP entered this afternoon 207/87 Repeated BP at bedside 184/74 at that time just prior to brief seizure-like activity mentioned above BP elevation persisted but repeat 144/71 after receiving hydralazine and ativan Stat CT head:No acute intracranial abnormality. Atrophy and microvascular ischemic changes Added PRN hydralazine, moved to PCU for closer monitoring Consider reevaluation by cardiology tomorrow (3) Chest pain: Plan: Chest pain secondary to Afib w/ RVR , possibly secondary to HTN-resolved. Work- up revealed this was not secondary to ACS. (4) Atrial fibrillation: Plan: History of paroxysmal atrial fibrillation. She spontaneously converted to sinus rhythm after IV metoprolol was given. She remains asymptomatic and in sinus rhythm/atrial paced rhythm. She has a known pacemaker present. Continue current regimen including diltiazem, metoprolol and Eliquis. (5) Hypokalemia: Plan: Resolved after replacement and with holding HCTZ/adding aldactone. (6) Acute kidney injury superimposed on chronic kidney disease: Plan: Baseline creatinine is around 1 with current creatinine 1.35 down from 1.542 days ago. She continues on losartan at twice her daily home dose which may be the cause of the higher creatinine we are seeing. HCTZ has been discontinued. She continues on spironolactone 25 mg p.o. every morning. Trend BMP in a.m (7) Hyperlipidemia: Plan: Chronic, at goal, continue atorvastatin 40 mg p.o. nightly per home regimen. (8) Diabetes mellitus: Plan: Well-controlled diabetic with A1c at goal. She is on basal bolus insulin at home and continues on this as inpatient. Current sugars are controlled. Continue current regimen. (9) Gastroesophageal reflux: Plan: chronic, stable. Denies symptoms. History of hiatal hernia, continue omeprazole per home regimen. (10) Depression: Plan: chronic, stable. Cont Zoloft 100mg PO daily per home regimen. (11) Dementia: Plan: -Mild to moderate with history of auditory and visual hallucinations, currently not present. -Continue Aricept 5 mg daily per home regimen. (12) Hypothyroid: Plan: chronic, stable. Cont levothyroxine per home regimen. (13) DVT prophylaxis: Plan: Apixaban CODE: DNR/DNI Dispo: Plan to DC to [facility], awaiting authorization. Admission and Anticipated Discharge Date Admission Date: March 30, 2022 Supervising Physician Co-Signing Physician Notes Patient is seen and examined at bedside. Depressed and tearful during my encounter. Also states having nausea. Poor oral intake as she states dislikes hospital food. Family at bedside. Offered psychiatric evaluation. Patient currently not interested at this morning. Blood pressure elevated but denies any chest pain, dyspnea, dizziness, headache, change in vision. On exam patient is moderately built and nourished, depressed, no apparent distress, normocephalic atraumatic, EOMI, normal breath sounds, clear to auscultation, S1- S2, no murmur, trace pedal edema, abdomen soft, nontender, normal bowel sounds, alert, awake, oriented, grossly no focal deficits. Patient had a brief episode of generalized seizure-like activity today afternoon. Seem to have no loss of consciousness and is oriented. Kaleigh augustine was called. Vital signs reviewed. Blood pressure significantly elevated. Blood glucose levels noted to be 230. Patient follows simple commands. CT head showed no acute intracranial abnormality. Family contact information unavailable in chart. Patient transferred to PCU for close monitoring. Hypertensive urgency Continue diltiazem, metoprolol, losartan, spironolactone Increase hydralazine to 75 mg 3 times daily Decrease losartan to 50 mg daily given rising creatinine Consider reevaluation by cardiology IV hydralazine as needed Seizure-like activity ? Conversion disorder Depression CT head:No acute intracranial abnormality. Atrophy and microvascular ischemic changes. Obtain EEG Seizure, fall precautions Repeat Labs reviewed Consulted Psychiatry Atrial fibrillation TALIA on CKD Diabetes mellitus GERD Hypothyroidism Dementia Continue current medications I personally reviewed the record. Patient is interviewed and examined at bedside. Patient's care is coordinated with Alexandria Wagner PA-C. Please refer to the documentation above for details of patient's presentation and for discussion of other issues. Subjective Patient seen and examined this morning in 241 bed 1. Sitting up in bed denying any changes overnight. Disappointed with breakfast option and did not eat anything. Denies any visual changes, headache, nausea or vomiting. BP 196/84 in AUG last evening. Discussed repeating BP with nurse since patient had just received morning antihypertensives. No fever, chills, lightheadedness, headache, chest pain, shortness of breath, nausea vomiting, abdominal pain, dysuria, diarrhea or constipation. Review of Systems Review of Systems: All systems reviewed negative except as indicated above. Physical Exam Physical Exam: Gen: WD/WN, NAD, sitting up in bed, A&Ox3 but flat affect HEENT: Normocephalic, atraumatic, conjunctivae moist, sclerae anicteric, mucous membranes moist Lung: Clear to Auscultation bilaterally, no wheezes/rales/rhonchi Heart: Regular rate, regular rhythm, no murmurs, rubs, or gallops Abdomen: Soft, NT, ND +BS x 4 Extremities: no edema Skin: Warm, no rash Results & Data Results & Data ([facility]) Laboratory Results Short CBC 04/07/22 Range/Units 16:10 WBC 7.34 (4.8-10.8) K/ul Hgb 14.0 (12.0-16.0) g/dl Hct 42.9 (34.1-44.9) % Plt Count 222 (130-400) K/uL BMP 04/07/22 04/07/22 07:52 16:10 Sodium 138 136 Potassium 4.5 4.2 Chloride 106 104 Carbon Dioxide 26 23 BUN 41 H 36 H Creatinine 1.48 H 1.29 H Glucose 168 H 266 H Calcium 10.0 10.1 Liver Function 04/07/22 Range/Units 16:10 Total Bilirubin 0.5 (0.2-1.0) mg/dl AST 18 (13-39) U/L ALT 13 (7-52) U/L Alkaline Phosphatase 66 (34-104) U/L Albumin 4.0 (3.4-5.0) gm/dl Diagnostic Findings Chest X-Ray 03/30/22 10:56 SINGLE VIEW CHEST CLINICAL HISTORY: Atypical chest pain. FINDINGS: An AP, portable, upright chest radiograph is obtained. No prior studies are available for comparison at the time of dictation. A 2-lead cardiac pacemaker is in place . The heart is mildly enlarged noting atherosclerotic calcification of the thoracic aorta. The pulmonary vasculature is noncongested. There is bibasilar scarring/atelectasis. No airspace consolidation or large pleural effusion is identified. No pneumothorax is seen. The skeletal structures are osteopenic. The bony thorax is grossly intact. IMPRESSION: 1. Cardiomegaly and cardiac pacemaker without radiographic evidence of congestive failure. 2. No airspace consolidation or large pleural effusion is identified. ACT 112: Negative or not required by law. Electronically signed by: Bryson Godoy M.D. 03/30/2022 11:21 AM Chest CTA 03/30/22 12:15 CT ANGIOGRAM OF THE CHEST CLINICAL HISTORY: Atypical chest pain. COMPARISON STUDY: Chest x-ray dated 03/30/2022. TECHNIQUE: Following the IV administration of 112 cc of Optiray 320, CT angiogram of the chest was performed from the upper abdomen to the thoracic inlet utilizing the pulmonary embolus protocol. Images are reviewed in the axial, sagittal, and coronal planes. 3-D MIPS images are created and assessed. IV contrast was administered without complication. A dose lowering technique was utilized adhering to the principles of ALARA. CT DOSE: 755.19 mGy.cm FINDINGS: Thyroid: Mildly enlarged and heterogeneous. Thoracic aorta: There is atherosclerotic calcification of the thoracic aorta, which is normal in caliber and demonstrates standard 3-vessel arch anatomy. No dissection is seen. Pulmonary vasculature: The main pulmonary arteries are dilated suggesting pulmonary hypertension. There are no filling defects identified in main, lobar, or segmental pulmonary branches to suggest pulmonary embolus. Heart: A cardiac pacemaker is present in the left chest wall. The heart is enlarged and without pericardial effusion. The coronary arteries are densely calcified. Lungs and pleural spaces: Evaluation of the lung parenchyma is degraded by motion artifact. Emphysema is noted. The trachea and central airways are clear. Scarring/atelectasis at the lung bases. Airspace consolidation consistent with pneumonia or pleural effusion is identified. Mediastinum: There is no mediastinal lymphadenopathy. Ana Lilia: Clear. Axillae: There is no axillary lymphadenopathy. Upper abdomen: Partially visualized upper abdominal viscera is within normal limits. Skeletal structures: The skeletal structures are osteopenic. Degenerative change and hyperkyphosis is noted in the thoracic spine. There are chronic-appearing compression deformities of T2, T3, and T4. No lytic or blastic bony lesions are seen. IMPRESSION: 1. There is no evidence of pulmonary embolus in the main, lobar, or segmental pulmonary arteries. 2. Cardiomegaly and cardiac pacemaker. 3. Emphysema. 4. No airspace consolidation or pleural effusion is identified. 5. Additional findings as above. ACT 112: Negative or not required by law. Electronically signed by: Bryson Godoy M.D. 03/30/2022 12:56 PM Chest X-Ray 04/02/22 10:04 XR chest 1V portable CLINICAL HISTORY: episodes of shortness of breath COMPARISON STUDY: Chest radiograph and chest CT March 30, 2022. FINDINGS: Left subclavian pacer is in place. No pneumothorax or pleural effusion is present. Cardiomediastinal silhouette is stable. There is no evidence for pulmonary edema. Mild bibasilar opacities favor atelectasis. IMPRESSION: No acute cardiopulmonary findings. This interval change in appearance of the chest. ACT 112: Negative or not required by law. Electronically signed by: Tommie Griffin M.D. 04/02/2022 10:[address] 04/07/22 15:[address] DOSE: 514.96 mGycm HISTORY: altered mental status TECHNIQUE: Multiaxial CT images of the head were performed without the use of intravenous contrast. Automated exposure control was utilized for this study. A dose lowering technique was utilized adhering to the principles of ALARA. Comparison: None. Findings: The paranasal sinuses and mastoid air cells are clear. The calvarium and skull base are intact. There is no mass, hematoma, midline shift, acute infarct. White matter hypodensity is nonspecific but suggestive of microvascular ischemic change. The ventricles and sulci demonstrate mild age-related involutional changes. Old punctate lacunar infarct within the cerebellar vermis. Impression: No acute intracranial abnormality. Atrophy and microvascular ischemic changes. ACT 112: Negative or not required by law. Electronically signed by: Garry Owen M.D. 04/07/2022 3:58 PM (1) Dementia Dementia type: unspecified type (2) Hypothyroid Hypothyroidism type: unspecified Qualified Code(s): E03.9 - Hypothyroidism, unspecified
[2022-04-07] MEDS: UMECLIDINIUM/VILANTEROL 62.5/25MCG 7 PUFFS/INHALER INH SCH (14:40)
[2022-04-07] MEDS ORDERED: LORazepam 1 MG in SYRINGE 0 ML IV STA (15:37)
[2022-04-07] MEDS ORDERED: LORazepam 1 MG in SYRINGE 0 ML IV PRN (15:53)
--- NOTE | 2022-04-07 15:59 | CT Scan Report ---
HEAD CT NONCONTRAST CT DOSE: 514.96 mGycm HISTORY: altered mental status TECHNIQUE: Multiaxial CT images of the head were performed without the use of intravenous contrast. A utomated exposure control was utilized for this study. A dose lowering technique was utilized adheri ng to the principles of ALARA. Comparison: None. Findings: The paranasal sinuses and mastoid air cells are clear. The calvarium and skull base are int act. There is no mass, hematoma, midline shift, acute infarct. White matter hypodensity is nonspecifi c but suggestive of microvascular ischemic change. The ventricles and sulci demonstrate mild age-rela kirit involutional changes. Old punctate lacunar infarct within the cerebellar vermis. Impression: No acute intracranial abnormality. Atrophy and microvascular ischemic changes. ACT 112: Negative or not required by law. Electronically signed by: Garry Owen M.D. 04/07/2022 3:58 PM
[2022-04-07 16:37] LABS: Hematocrit (blood only) 42.9 % (34.1-44.9); Mean Corpuscular Hemoglobin 29.9 pg (25.0-34.0); Mean Corpuscular Hgb Conc 32.6 g/dL (32.0-36.0); Mean Corpuscular Volume 91.7 fL (80.0-100.0); Mean Platelet Volume 11.1 fL (9.4-12.3); Platelet Count 222 K/uL (130-400); RDW Coefficient of Variation 15.3 % (11.5-14.5); RDW Standard Deviation 51.7 fL (36.4-46.3); Red Blood Count 4.68 M/uL (3.93-5.22); White Blood Count 7.34 K/ul (4.8-10.8)
[2022-04-07 16:55] LABS: Albumin Globulin Ratio 1.3 (0.9-2); BUN Creatinine Ratio 27.9 (10-20); Bilirubin,Total 0.5 mg/dl (0.2-1.0); Calcium 10.1 mg/dl (8.5-10.1); Creatinine Clr Calc Pharmacy 35.7 ml/min; Est GFR (African American) 46.3 ml/min; Est GFR (Non-African American) 39.9 ml/min; Globulin 3.1 gm/dl (2.5-4.0); Potassium 4.2 mmol/L (3.5-5.1); Total Protein 7.1 gm/dl (6.0-8.3)
[2022-04-07] MEDS: MONTELUKAST SODIUM 10 MG TABLET PO SCH (20:27)
[2022-04-07] MEDS: ATORVASTATIN 40 MG TAB PO SCH (20:27)
[2022-04-07] MEDS ORDERED: hydrALAZINE HCL 25 MG TAB PO SCH (21:00)
[2022-04-08] MEDS: LEVOTHYROXINE SODIUM 100 MCG TABLET PO SCH (05:57)
[2022-04-08 07:24] LABS: Calcium 9.5 mg/dl (8.5-10.1); Creatinine Clr Calc Pharmacy 33.5 ml/min; Est GFR (African American) 41.2 ml/min; Est GFR (Non-African American) 35.5 ml/min; Potassium 4.2 mmol/L (3.5-5.1)
[2022-04-08] MEDS: FLUTICASONE FUROATE 200MCG 14 PUFFS/INHALER INH SCH (07:59)
[2022-04-08] MEDS: UMECLIDINIUM/VILANTEROL 62.5/25MCG 7 PUFFS/INHALER INH SCH (07:59)
[2022-04-08] MEDS: APIXABAN 5 MG TABLET PO SCH ×2 (08:00→20:38)
[2022-04-08] MEDS: PANTOprazole 40 MG TAB PO SCH (08:01)
[2022-04-08] MEDS: dilTIAZem ER 180 MG CAPCR PO SCH ×2 (08:01→20:37)
[2022-04-08] MEDS: DONEPEZIL HCL 5 MG TAB PO SCH (08:01)
[2022-04-08] MEDS: SPIRONOLACTONE 25 MG TAB PO SCH (08:02)
[2022-04-08] MEDS: SERTRALINE HCL 100 MG TABLET PO SCH (08:02)
[2022-04-08] MEDS: LOSARTAN POTASSIUM 50 MG TAB PO SCH (08:03)
[2022-04-08] MEDS: METOPROLOL SUCC 50MG EXT REL TAB PO SCH ×2 (08:07→16:50)
[2022-04-08] MEDS: PREGABALIN 50 MG CAP PO SCH ×2 (08:10→20:36)
[2022-04-08] MEDS: LANTUS PER UNIT CHARGE SQ SCH (08:10)
[2022-04-08] MEDS: ASPIRIN 81 MG CHEW PO SCH (08:10)
[2022-04-08] MEDS: INSULIN ASPART PER UNIT SC SCH ×4 (08:18→19:45)
--- NOTE | 2022-04-08 10:50 | Hospitalist Progress Note ---
Date of Service April 08, 2022 Assessment & Plan (1) Seizure-like activity: Plan: Seizure-like activity DD:Conversion disorder CT head:No acute intracranial abnormality. Atrophy and microvascular ischemic changes. EEG pending Seizure, fall precautions Advised Psychiatry eval:Patient refused Monitor (2) Hypertensive urgency: Plan: Hypertensive urgency Continue diltiazem, metoprolol, losartan, spironolactone Increase hydralazine to 50 mg 3 times daily IV hydralazine as needed Monitor (3) Chest pain: Plan: Chest pain secondary to Afib w/ RVR , HTN ECHO showed no wall motion abnormality Resolved (4) Atrial fibrillation: Plan: H/O Paroxysmal atrial fibrillation. Spontaneously converted to sinus S/P Pacemaker present Continue diltiazem, metoprolol and Eliquis (5) Hypokalemia: Plan: Resolved Monitor (6) Acute kidney injury superimposed on chronic kidney disease: Plan: Baseline Cr ~ 1 Cr 1.4 Monitor renal function Avoid Nephrotoxic agents as able Monitor (7) Hyperlipidemia: Plan: Continue Atorvastatin (8) Diabetes mellitus: Plan: HbA1c 6.5 Continue insulin per protocol Monitor BGs (9) Gastroesophageal reflux: Plan: continue PPI (10) Depression: Plan: Continue Zoloft Patient refuses psychiatry evaluation (11) Dementia: Plan: -Mild to moderate with history of auditory and visual hallucinations -Continue Aricept (12) Hypothyroid: Plan: Continue levothyroxine (13) DVT prophylaxis: Plan: on Apixaban CODE STATUS: DNR/DNI Admission and Anticipated Discharge Date Admission Date: March 30, 2022 Subjective Patient is seen and examined at bedside States feeling well today Offers no complaints Denies chest pain, dyspnea, dizziness, nausea, abd pain BP better today Review of Systems Review of Systems: All systems reviewed & are unremarkable except as noted in Subjective Physical Exam Physical Exam: Physical Exam: Vitals signs as noted above General Appearance:Moderately built and nourished, no apparent distress Head: normocephalic, Atraumatic Eyes: normal inspection, EOMI Neck: supple, Trachea midline Respiratory/Chest: Normal breath sounds, CTA, No accessory muscle use Cardiovascular: S1, S2, No murmur Abdomen/GI:Soft, Non tender, Bowel sounds present Extremities/Musculoskeletal:normal inspection, Trace edema Neurologic/Psych:AAOX3, grossly no focal neurological deficits Skin: normal color, warm Results & Data Results & Data ([place]) Vital Signs (Past 12 Hours) Vital Signs Temp Pulse Pulse Resp BP Pulse Ox O2 Del Method 04/08/22 07:19 36.7 C 60 18 128/69 93 Room Air 04/08/22 04:20 36.8 C 60 18 147/73 H 93 Room Air 04/07/22 23:17 60 04/07/22 23:09 36.4 C L 60 18 115/66 91 Room Air Laboratory Results Short CBC 04/07/22 Range/Units 16:10 WBC 7.34 (4.8-10.8) K/ul Hgb 14.0 (12.0-16.0) g/dl Hct 42.9 (34.1-44.9) % Plt Count 222 (130-400) K/uL BMP 04/07/22 04/08/22 16:10 05:57 Sodium 136 137 Potassium 4.2 4.2 Chloride 104 105 Carbon Dioxide 23 26 BUN 36 H 44 H Creatinine 1.29 H 1.42 H Glucose 266 H 164 H Calcium 10.1 9.5 Liver Function 04/07/22 Range/Units 16:10 Total Bilirubin 0.5 (0.2-1.0) mg/dl AST 18 (13-39) U/L ALT 13 (7-52) U/L Alkaline Phosphatase 66 (34-104) U/L Albumin 4.0 (3.4-5.0) gm/dl (1) Dementia Dementia type: unspecified type (2) Hypothyroid Hypothyroidism type: unspecified Qualified Code(s): E03.9 - Hypothyroidism, unspecified
[2022-04-08] MEDS: hydrALAZINE TAB 50 MG TAB PO SCH ×3 (11:44→20:39)
[2022-04-08] MEDS: ATORVASTATIN 40 MG TAB PO SCH (20:37)
[2022-04-08] MEDS: MONTELUKAST SODIUM 10 MG TABLET PO SCH (20:40)
[2022-04-08] MEDS: hydrALAZINE HCL 20 MG/ML VIAL IV PRN (22:47)
[2022-04-09 06:11] LABS: Hematocrit (blood only) 38.4 % (34.1-44.9); Hemoglobin 12.7 g/dl (12.0-16.0); Mean Corpuscular Hemoglobin 30.2 pg (25.0-34.0); Mean Corpuscular Hgb Conc 33.1 g/dL (32.0-36.0); Mean Corpuscular Volume 91.4 fL (80.0-100.0); Platelet Count 208 K/uL (130-400); RDW Coefficient of Variation 15.3 % (11.5-14.5); White Blood Count 8.22 K/ul (4.8-10.8)
[2022-04-09] MEDS: LEVOTHYROXINE SODIUM 100 MCG TABLET PO SCH (06:14)
[2022-04-09 06:36] LABS: BUN Creatinine Ratio 33.6 (10-20); Calcium 9.6 mg/dl (8.5-10.1); Est GFR (African American) 40.8 ml/min; Est GFR (Non-African American) 35.2 ml/min; Potassium 4.3 mmol/L (3.5-5.1)
[2022-04-09] MEDS: LANTUS PER UNIT CHARGE SQ SCH (08:00)
[2022-04-09] MEDS: INSULIN ASPART PER UNIT SC SCH ×4 (08:01→21:28)
[2022-04-09] MEDS: dilTIAZem ER 180 MG CAPCR PO SCH ×2 (08:03→21:10)
[2022-04-09] MEDS: SERTRALINE HCL 100 MG TABLET PO SCH (08:04)
[2022-04-09] MEDS: PANTOprazole 40 MG TAB PO SCH (08:04)
[2022-04-09] MEDS: LOSARTAN POTASSIUM 50 MG TAB PO SCH (08:04)
[2022-04-09] MEDS: METOPROLOL SUCC 50MG EXT REL TAB PO SCH ×3 (08:04→17:06)
[2022-04-09] MEDS: SPIRONOLACTONE 25 MG TAB PO SCH (08:04)
[2022-04-09] MEDS: APIXABAN 5 MG TABLET PO SCH ×2 (08:04→21:09)
[2022-04-09] MEDS: DONEPEZIL HCL 5 MG TAB PO SCH (08:04)
[2022-04-09] MEDS: FLUTICASONE FUROATE 200MCG 14 PUFFS/INHALER INH SCH (08:05)
[2022-04-09] MEDS: hydrALAZINE TAB 50 MG TAB PO SCH (08:05)
[2022-04-09] MEDS: UMECLIDINIUM/VILANTEROL 62.5/25MCG 7 PUFFS/INHALER INH SCH (08:06)
[2022-04-09] MEDS: ASPIRIN 81 MG CHEW PO SCH (08:08)
[2022-04-09] MEDS: PREGABALIN 50 MG CAP PO SCH ×2 (08:08→21:09)
[2022-04-09] MEDS: hydrALAZINE 10 MG TAB PO SCH ×3 (12:38→21:12)
--- NOTE | 2022-04-09 13:52 | Hospitalist Progress Note ---
Date of Service April 09, 2022 Assessment & Plan (1) Seizure-like activity: Plan: Seizure-like activity DD:Conversion disorder CT head:No acute intracranial abnormality. Atrophy and microvascular ischemic changes. EEG pending Seizure, fall precautions Advised Psychiatry eval:Patient refused Monitor (2) Hypertensive urgency: Plan: Hypertensive urgency Continue diltiazem, metoprolol, losartan, spironolactone Increase hydralazine to 40 mg 4 times daily IV hydralazine as needed Monitor BP (3) Chest pain: Plan: Chest pain secondary to Afib w/ RVR , HTN ECHO showed no wall motion abnormality Resolved (4) Atrial fibrillation: Plan: H/O Paroxysmal atrial fibrillation. Spontaneously converted to sinus S/P Pacemaker present Continue diltiazem, metoprolol and Eliquis (5) Hypokalemia: Plan: Resolved Monitor (6) Acute kidney injury superimposed on chronic kidney disease: Plan: Baseline Cr ~ 1 Cr 1.4 Monitor renal function Avoid Nephrotoxic agents as able Monitor (7) Hyperlipidemia: Plan: Continue Atorvastatin (8) Diabetes mellitus: Plan: HbA1c 6.5 Continue insulin per protocol Monitor BGs (9) Gastroesophageal reflux: Plan: continue PPI (10) Depression: Plan: Continue Zoloft Patient refuses psychiatry evaluation (11) Dementia: Plan: -Mild to moderate with history of auditory and visual hallucinations -Continue Aricept (12) Hypothyroid: Plan: Continue levothyroxine (13) DVT prophylaxis: Plan: on Apixaban CODE STATUS: DNR/DNI Admission and Anticipated Discharge Date Admission Date: March 30, 2022 Subjective Patient is seen and examined at bedside Feels tired No recurrence of seizure-like activity States having minimal headache this morning which resolved Denies chest pain, dyspnea, dizziness, nausea, abd pain Review of Systems Review of Systems: All systems reviewed & are unremarkable except as noted in Subjective Physical Exam Physical Exam: Physical Exam: Vitals signs as noted above General Appearance:Moderately built and nourished, no apparent distress Head: normocephalic, Atraumatic Eyes: normal inspection, EOMI Neck: supple, Trachea midline Respiratory/Chest: Normal breath sounds, CTA, No accessory muscle use Cardiovascular: S1, S2, No murmur Abdomen/GI:Soft, Non tender, Bowel sounds present Extremities/Musculoskeletal:normal inspection, Trace edema Neurologic/Psych:AAOX3, grossly no focal neurological deficits Skin: normal color, warm Results & Data Results & Data ([facility]) Vital Signs (Past 12 Hours) Vital Signs Temp Pulse Pulse Resp BP BP Pulse Ox 04/09/22 11:10 36.9 C 60 18 169/72 H 94 04/09/22 08:00 60 04/09/22 07:09 36.9 C 95 H 18 177/73 H 93 04/09/22 03:25 36.7 C 60 16 157/76 H 92 O2 Del Method 04/09/22 11:10 Room Air 04/09/22 08:00 04/09/22 07:09 Room Air 04/09/22 03:25 Room Air Laboratory Results Short CBC 04/09/22 Range/Units 05:22 WBC 8.22 (4.8-10.8) K/ul Hgb 12.7 (12.0-16.0) g/dl Hct 38.4 (34.1-44.9) % Plt Count 208 (130-400) K/uL BMP 04/09/22 05:22 Sodium 138 Potassium 4.3 Chloride 107 Carbon Dioxide 25 BUN 48 H Creatinine 1.43 H Glucose 139 H Calcium 9.6 (1) Dementia Dementia type: unspecified type (2) Hypothyroid Hypothyroidism type: unspecified Qualified Code(s): E03.9 - Hypothyroidism, unspecified
[2022-04-09] MEDS: MONTELUKAST SODIUM 10 MG TABLET PO SCH (21:10)
[2022-04-09] MEDS: ATORVASTATIN 40 MG TAB PO SCH (21:11)
[2022-04-09] MEDS: hydrALAZINE HCL 20 MG/ML VIAL IV PRN (23:55)
[2022-04-10] MEDS: LEVOTHYROXINE SODIUM 100 MCG TABLET PO SCH (04:59)
--- NOTE | 2022-04-10 07:48 | CT Scan Report ---
CT SCAN OF THE BRAIN WITHOUT IV CONTRAST CLINICAL HISTORY: Change in mental status. COMPARISON STUDY: CT of the brain dated 04/07/2022. TECHNIQUE: Unenhanced axial CT scan of the brain is performed from the vertex to the skull base. A do se lowering technique was utilized adhering to the principles of ALARA. CT DOSE: 821.00 mGycm FINDINGS: Brain parenchyma: There is age-related involutional change noting mild subcortical and periventricula r microangiopathic disease. There is no hemorrhage, mass effect, or evidence of acute territorial isc hemia by CT criteria. Dubon-white matter differentiation is preserved. No extra-axial fluid collection is seen. Ventricles, sulci, cisterns: Prominent secondary to involutional change. Intracranial vasculature: There is atherosclerotic calcification of the cavernous carotid and vertebr al arteries. Calvarium: Unremarkable. Sinuses and mastoids: The paranasal sinuses are clear. The mastoid air cells are well pneumatized. Orbits: The bony orbits are grossly intact. There are bilateral ocular lens implants. IMPRESSION: There is no hemorrhage, mass effect, or evidence of acute territorial ischemia by CT aurora boyd. ACT 112: Negative or not required by law. Electronically signed by: Bryson Godoy M.D. 04/10/2022 7:46 AM
[2022-04-10] MEDS: LOSARTAN POTASSIUM 50 MG TAB PO SCH (08:36)
[2022-04-10] MEDS: hydrALAZINE 10 MG TAB PO SCH ×4 (08:36→20:37)
[2022-04-10] MEDS: dilTIAZem ER 180 MG CAPCR PO SCH ×2 (08:36→20:38)
[2022-04-10] MEDS: APIXABAN 5 MG TABLET PO SCH ×2 (08:36→20:38)
[2022-04-10] MEDS: METOPROLOL SUCC 50MG EXT REL TAB PO SCH ×2 (08:36→17:01)
[2022-04-10] MEDS: SPIRONOLACTONE 25 MG TAB PO SCH (08:37)
[2022-04-10] MEDS: DONEPEZIL HCL 5 MG TAB PO SCH (08:37)
[2022-04-10] MEDS: SERTRALINE HCL 100 MG TABLET PO SCH (08:37)
[2022-04-10] MEDS: PANTOprazole 40 MG TAB PO SCH (08:37)
[2022-04-10] MEDS: FLUTICASONE FUROATE 200MCG 14 PUFFS/INHALER INH SCH (08:37)
[2022-04-10] MEDS: UMECLIDINIUM/VILANTEROL 62.5/25MCG 7 PUFFS/INHALER INH SCH (08:38)
[2022-04-10] MEDS: ASPIRIN 81 MG CHEW PO SCH (08:43)
[2022-04-10] MEDS: INSULIN ASPART PER UNIT SC SCH ×4 (08:43→20:43)
[2022-04-10] MEDS: LANTUS PER UNIT CHARGE SQ SCH (08:44)
[2022-04-10 09:11] LABS: Albumin Globulin Ratio 1.3 (0.9-2); BUN Creatinine Ratio 33.1 (10-20); Bilirubin,Total 0.5 mg/dl (0.2-1.0); Calcium 10.1 mg/dl (8.5-10.1); Creatinine Clr Calc Pharmacy 39.4 ml/min; Est GFR (Non-African American) 43.1 ml/min; Magnesium 2.1 mg/dl (1.7-2.4); Potassium 4.3 mmol/L (3.5-5.1)
[2022-04-10] MEDS: PREGABALIN 50 MG CAP PO SCH ×2 (10:00→20:41)
--- NOTE | 2022-04-10 10:41 | Cardiology Progress Note ---
Date of Service April 10, 2022 Assessment & Plan (1) Paroxysmal atrial fibrillation with rapid ventricular response: (2) Chest pain: (3) Elevated troponin I level: (4) Pacemaker: (5) Hypertension: (6) Chronic kidney disease: (7) Seizure-like activity: Plan According to nursing, the patient had seizure-like activity early this morning and then was postictal. A CT was ordered and the patient taken down for the study. The results are still pending. On the night monitor the patient has had no atrial fibrillation. She has had a paced rhythm but approximately 4 AM this morning she had activity which appears to be artifact and can be consistent with a seizure. During my evaluation this morning the patient denied chest pain or other cardiac symptoms. She states that she had which she felt like electric shocks that started in the upper portion of her body and then went down into her legs. The symptoms may have occurred during her seizures. In any case, I do not believe her symptoms are cardiac in origin. I would recommend both neurology and psychiatry consults. Admission and Anticipated Discharge Date Admission Date: March 30, 2022 Subjective The patient seems to be alert and oriented this morning. Review of Systems Review of Systems: Review of Systems: See HPI for pertinent positives. All other 10 point review of systems are negative. Physical Exam Physical Exam: General: no acute distress and stated age Head: normocephalic, no masses, lesions, tenderness or abnormalities Eyes: conjunctiva are pink and non-injected, sclera clear Neck: supple, no adenopathy, no bruits, normal jugular venous pulse, no hepatojugular reflux Chest: normal shape and normal respiratory effort Lungs: clear to auscultation and percussion Cardiac Exam: - regular rate & rhythm, no murmurs gallops or rubs - normal S1, normal S2 Pulses: 2(+) throughout Abdomen: abdomen soft, non-tender, no abnormal masses and no hepatosplenomegaly Musculoskeletal: no gait disturbance, no joint inflammation, no deforming arthritis Extremities: no edema and no cyanosis Neuro: grossly normal exam Results & Data ([facility]) Vital Signs (Past 12 Hours) Vital Signs Temp Pulse Pulse Resp BP Pulse Ox O2 Del Method 04/10/22 08:00 60 04/10/22 07:40 36.7 C 60 15 179/73 H 93 Room Air 04/10/22 04:05 37.1 C 60 18 151/76 H 96 Room Air 04/09/22 23:37 36.6 C 60 18 192/76 H 97 Room Air 04/09/22 23:23 60 Laboratory Results Laboratory Results - last 24 hr 04/09/22 04/09/22 04/09/22 11:09 16:25 20:35 Sodium Potassium Chloride Carbon Dioxide Anion Gap BUN Creatinine Est Cr Clr Drug Dosing Est GFR ( Amer) Est GFR (Non-Af Amer) BUN/Creatinine Ratio Glucose POC Glucose 164 H 132 H 182 H Calcium Magnesium Total Bilirubin AST ALT Alkaline Phosphatase Total Protein Albumin Globulin Albumin/Globulin Ratio 04/10/22 04/10/22 07:10 07:52 Sodium 138 Potassium 4.3 Chloride 107 Carbon Dioxide 24 Anion Gap 7 BUN 40 H Creatinine 1.21 H Est Cr Clr Drug Dosing 39.4 Est GFR ( Amer) 50.0 Est GFR (Non-Af Amer) 43.1 BUN/Creatinine Ratio 33.1 H Glucose 175 H POC Glucose 169 H Calcium 10.1 Magnesium 2.1 Total Bilirubin 0.5 AST 17 ALT 12 Alkaline Phosphatase 65 Total Protein 7.0 Albumin 4.0 Globulin 3.0 Albumin/Globulin Ratio 1.3 Medications Administered Current Inpatient Medications Acetaminophen (Acetaminophen 325 Mg Tab) 650 mg PO Q4H PRN PRN Reason: Moderate Pain Stop: 04/29/22 16:37 Apixaban (Apixaban 5 Mg Tablet) 5 mg PO BID PREETI Stop: 04/30/22 08:59 Last Admin: 04/10/22 08:36 Dose: 5 mg Aspirin (Aspirin 81 Mg Chew) 81 mg PO DAILY PREETI Stop: 04/30/22 08:59 Last Admin: 04/10/22 08:43 Dose: 81 mg Atorvastatin Calcium (Atorvastatin 40 Mg Tab) 40 mg PO HS PREETI Stop: 04/30/22 20:59 Last Admin: 04/09/22 21:11 Dose: 40 mg Dextrose (Dextrose 50% 50 Ml Syringe) 25 - 50 ml IV UD PRN; Protocol PRN Reason: Hypoglycemia Protocol Stop: 04/29/22 16:37 Diltiazem HCl (Diltiazem Er 180 Mg Capcr) 180 mg PO BID PREETI Stop: 04/30/22 10:29 Last Admin: 04/10/22 08:36 Dose: 180 mg Donepezil HCl (Donepezil Hcl 5 Mg Tab) 5 mg PO DAILY PREETI Stop: 04/30/22 08:59 Last Admin: 04/10/22 08:37 Dose: 5 mg Fluticasone Furoate (Fluticasone Furoate 200mcg 14 Puffs/Inhaler) 1 puffs INH DAILY PREETI Stop: 04/30/22 08:59 Last Admin: 04/10/22 08:37 Dose: 1 puffs Glucagon (Glucagon For Inj 1 Mg Vial) 1 mg SQ UD PRN; Protocol PRN Reason: Hypoglycemia Protocol Stop: 04/29/22 16:37 Glucose (Glucose 40% Gel 15 Gm Tube) 15 - 30 gm PO UD PRN; Protocol PRN Reason: Hypoglycemia Protocol Stop: 04/29/22 16:37 Glucose (Glucose 10 Tab/Tube) 4 - 8 tab PO UD PRN; Protocol PRN Reason: Hypoglycemia Treatment Stop: 04/29/22 16:37 Hydralazine HCl (Hydralazine Hcl 20 Mg/Ml Vial) 10 mg IV Q6H PRN PRN Reason: SBP >180 or DBP >100 Stop: 05/07/22 15:52 Last Admin: 04/09/22 23:55 Dose: 10 mg Hydralazine HCl (Hydralazine 10 Mg Tab) 40 mg PO QID PREETI Stop: 05/09/22 12:59 Last Admin: 04/10/22 08:36 Dose: 40 mg Lorazepam 1 mg/ Syringe 1 mls @ 2 mls/min IV Q2H PRN PRN Reason: seizure Stop: 05/07/22 15:52 Insulin Aspart (Insulin Aspart Per Unit) 0 units SC ACHS PREETI Stop: 04/29/22 16:59 Last Admin: 04/10/22 08:43 Dose: 7 units Insulin Glargine (Lantus Per Unit Charge) 10 units SQ QAM PREETI Stop: 04/30/22 08:59 Last Admin: 04/10/22 08:44 Dose: 10 units Levothyroxine Sodium (Levothyroxine Sodium 100 Mcg Tablet) 100 mcg PO DAILYBB REPLACED BY [facility] Stop: 05/01/22 06:29 Last Admin: 04/10/22 04:59 Dose: 100 mcg Losartan Potassium (Losartan Potassium 50 Mg Tab) 50 mg PO DAILY PREETI Stop: 05/08/22 08:59 Last Admin: 04/10/22 08:36 Dose: 50 mg Metoprolol Succinate (Metoprolol Succ 50mg Ext Rel Tab) 50 mg PO BID17 REPLACED BY [facility] Stop: 04/30/22 16:59 Last Admin: 04/10/22 08:36 Dose: 50 mg Miscellaneous (Carbohydrates For Hypoglycemia ) 15 - 30 gm PO UD PRN PRN Reason: Hypoglycemia Protocol Stop: 04/29/22 16:37 Montelukast Sodium (Montelukast Sodium 10 Mg Tablet) 10 mg PO HS PREETI Stop: 04/30/22 20:59 Last Admin: 04/09/22 21:10 Dose: 10 mg Ondansetron HCl (Ondansetron Inj 2 Mg/Ml 2 Ml Vial) 4 mg IV Q4H PRN PRN Reason: Nausea And Vomiting Stop: 04/29/22 16:37 Pantoprazole Sodium (Pantoprazole 40 Mg Tab) 40 mg PO DAILY REPLACED BY [facility] Stop: 04/30/22 09:14 Last Admin: 04/10/22 08:37 Dose: 40 mg Pregabalin (Pregabalin 50 Mg Cap) 50 mg PO BID PREETI Stop: 04/30/22 08:59 Last Admin: 04/10/22 10:00 Dose: 50 mg Sertraline HCl (Sertraline Hcl 100 Mg Tablet) 100 mg PO DAILY PREETI Stop: 04/30/22 08:59 Last Admin: 04/10/22 08:37 Dose: 100 mg Spironolactone (Spironolactone 25 Mg Tab) 25 mg PO QAM REPLACED BY [facility] Stop: 05/03/22 08:59 Last Admin: 04/10/22 08:37 Dose: 25 mg Umeclidinium/Vilanterol (Umeclidinium/Vilanterol 62.5/25mcg 7 Puffs/Inhaler) 1 puffs INH DAILY PREETI Stop: 04/30/22 08:59 Last Admin: 04/10/22 08:38 Dose: 1 puffs
--- NOTE | 2022-04-10 10:53 | Electroencephalogram ---
EEG Procedure Note Date of Service April 10, 2022 Start / End Times Start Time: 908 End Time: 928 Referring Physician Alexandria Wagner PA-C History 77-year-old with history of seizure-like activity. Home Medication List Medication Instructions Recorded Confirmed Type albuterol sulfate 90 mcg/actuation 1 puff inhalation QID PRN 03/30/22 03/30/22 History aerosol inhaler (ProAir HFA) Shortness Of Breath apixaban 5 mg tablet (Eliquis) 5 mg PO BID 03/30/22 03/30/22 History aspirin 81 mg chewable tablet 81 mg PO DAILY 03/30/22 03/30/22 History atorvastatin 40 mg tablet 40 mg PO HS 03/30/22 03/30/22 History budesonide 160 mcg-glycopyr 9 2 inh inhalation BID 03/30/22 03/30/22 History mcg-formot 4.8 mcg/actuation HFA inhaler (Breztri Aerosphere) calcium carb-vit D3-minerals 600 1 tab PO DAILY 03/30/22 03/30/22 History mg calcium-200 unit tablet (Calcium 600 + Minerals) diltiazem HCl 180 mg 180 mg PO BID 03/30/22 03/30/22 History tablet,extended release 24 hr donepezil 5 mg tablet 5 mg PO DAILY 03/30/22 03/30/22 History ferrous sulfate 325 mg (65 mg 325 mg PO DAILY 03/30/22 03/30/22 History iron) tablet furosemide 40 mg tablet 40 mg PO DAILY PRN leg edema 03/30/22 03/30/22 History hydralazine 10 mg tablet 20 mg PO QID 03/30/22 03/30/22 History insulin glargine 100 unit/mL (3 10 unit subcut QAM 03/30/22 03/30/22 History mL) subcutaneous pen (Lantus Solostar U-100 Insulin) insulin lispro 100 unit/mL 1 sliding scale dose subcut 03/30/22 03/30/22 History subcutaneous cartridge (Humalog USEASDIRECTD U-100 Insulin) levothyroxine 100 mcg tablet 100 mcg PO DAILY 03/30/22 03/30/22 History losartan 50 mg-hydrochlorothiazide 1 tab PO DAILY 03/30/22 03/30/22 History 12.5 mg tablet metoprolol succinate 50 mg 25 mg PO Q8H 03/30/22 03/30/22 History tablet,extended release 24 hr montelukast 10 mg tablet 10 mg PO HS 03/30/22 03/30/22 History (Singulair) nitroglycerin 0.4 mg sublingual 0.4 mg sublingual DIRECTED 03/30/22 03/30/22 History tablet olanzapine 2.5 mg tablet (Zyprexa) 2.5 mg PO HS 03/30/22 03/30/22 History omeprazole 20 mg capsule,delayed 20 mg PO DAILY 03/30/22 03/30/22 History release potassium chloride 10 mEq 10 meq PO DAILY 03/30/22 03/30/22 History capsule,extended release pregabalin 50 mg capsule (Lyrica) 50 mg PO BID 03/30/22 03/30/22 History sertraline 100 mg tablet (Zoloft) 100 mg PO DAILY 03/30/22 03/30/22 History Inpatient Medication List Apixaban (Apixaban 5 Mg Tablet) 5 mg PO BID PREETI Stop: 04/30/22 08:59 Last Admin: 04/10/22 08:36 Dose: 5 mg Documented By: Admin: 04/09/22 21:09 Dose: 5 mg Documented By: Admin: 04/09/22 08:04 Dose: 5 mg Documented By: Admin: 04/08/22 20:38 Dose: 5 mg Documented By: Admin: 04/08/22 08:00 Dose: 5 mg Documented By: Admin: 04/07/22 20:26 Dose: 5 mg Documented By: Admin: 04/07/22 09:09 Dose: 5 mg Documented By: Admin: 04/06/22 20:01 Dose: 5 mg Documented By: Admin: 04/06/22 08:31 Dose: 5 mg Documented By: Admin: 04/05/22 20:34 Dose: 5 mg Documented By: Admin: 04/05/22 08:35 Dose: 5 mg Documented By: Admin: 04/04/22 19:48 Dose: 5 mg Documented By: Admin: 04/04/22 08:38 Dose: 5 mg Documented By: Admin: 04/03/22 20:34 Dose: 5 mg Documented By: Admin: 04/03/22 08:50 Dose: 5 mg Documented By: Admin: 04/02/22 20:27 Dose: 5 mg Documented By: Admin: 04/02/22 08:46 Dose: 5 mg Documented By: Admin: 04/01/22 20:30 Dose: 5 mg Documented By: Admin: 04/01/22 08:13 Dose: 5 mg Documented By: Admin: 03/31/22 19:45 Dose: 5 mg Documented By: Admin: 03/31/22 10:20 Dose: 5 mg Documented By: TUTU Aspirin (Aspirin 81 Mg Chew) 81 mg PO DAILY PREETI Stop: 04/30/22 08:59 Last Admin: 04/10/22 08:43 Dose: 81 mg Documented By: Admin: 04/09/22 08:08 Dose: 81 mg Documented By: Admin: 04/08/22 08:10 Dose: 81 mg Documented By: Admin: 04/07/22 09:08 Dose: 81 mg Documented By: Admin: 04/06/22 08:31 Dose: 81 mg Documented By: Admin: 04/05/22 08:35 Dose: 81 mg Documented By: Admin: 04/04/22 08:38 Dose: 81 mg Documented By: Admin: 04/03/22 08:50 Dose: 81 mg Documented By: Admin: 04/02/22 08:47 Dose: 81 mg Documented By: Admin: 04/01/22 08:13 Dose: 81 mg Documented By: Admin: 03/31/22 10:20 Dose: 81 mg Documented By: TUTU Atorvastatin Calcium (Atorvastatin 40 Mg Tab) 40 mg PO HS PREETI Stop: 04/30/22 20:59 Last Admin: 04/09/22 21:11 Dose: 40 mg Documented By: Admin: 04/08/22 20:37 Dose: 40 mg Documented By: Admin: 04/07/22 20:27 Dose: 40 mg Documented By: Admin: 04/06/22 20:02 Dose: 40 mg Documented By: Admin: 04/05/22 20:35 Dose: 40 mg Documented By: Admin: 04/04/22 19:48 Dose: 40 mg Documented By: Admin: 04/03/22 20:34 Dose: 40 mg Documented By: Admin: 04/02/22 20:27 Dose: 40 mg Documented By: Admin: 04/01/22 20:30 Dose: 40 mg Documented By: Admin: 03/31/22 19:45 Dose: 40 mg Documented By: SUZAN Diltiazem HCl (Diltiazem Er 180 Mg Capcr) 180 mg PO BID PREETI Stop: 04/30/22 10:29 Last Admin: 04/10/22 08:36 Dose: 180 mg Documented By: Admin: 04/09/22 21:10 Dose: 180 mg Documented By: Admin: 04/09/22 08:03 Dose: 180 mg Documented By: Admin: 04/08/22 20:37 Dose: 180 mg Documented By: Admin: 04/08/22 08:01 Dose: 180 mg Documented By: Admin: 04/07/22 20:26 Dose: 180 mg Documented By: Admin: 04/07/22 09:10 Dose: 180 mg Documented By: Admin: 04/06/22 20:02 Dose: 180 mg Documented By: Admin: 04/06/22 08:31 Dose: 180 mg Documented By: Admin: 04/05/22 20:34 Dose: 180 mg Documented By: Admin: 04/05/22 08:35 Dose: 180 mg Documented By: Admin: 04/04/22 19:48 Dose: 180 mg Documented By: Admin: 04/04/22 08:38 Dose: 180 mg Documented By: Admin: 04/03/22 20:33 Dose: 180 mg Documented By: Admin: 04/03/22 08:50 Dose: 180 mg Documented By: Admin: 04/02/22 20:27 Dose: 180 mg Documented By: Admin: 04/02/22 08:47 Dose: 180 mg Documented By: Admin: 04/01/22 20:30 Dose: 180 mg Documented By: Admin: 04/01/22 08:13 Dose: 180 mg Documented By: Admin: 03/31/22 19:45 Dose: 180 mg Documented By: Admin: 03/31/22 13:31 Dose: 180 mg Documented By: TUTU Donepezil HCl (Donepezil Hcl 5 Mg Tab) 5 mg PO DAILY PREETI Stop: 04/30/22 08:59 Last Admin: 04/10/22 08:37 Dose: 5 mg Documented By: Admin: 04/09/22 08:04 Dose: 5 mg Documented By: Admin: 04/08/22 08:01 Dose: 5 mg Documented By: Admin: 04/07/22 09:08 Dose: 5 mg Documented By: Admin: 04/06/22 08:31 Dose: 5 mg Documented By: Admin: 04/05/22 08:36 Dose: 5 mg Documented By: Admin: 04/04/22 08:38 Dose: 5 mg Documented By: Admin: 04/03/22 08:49 Dose: 5 mg Documented By: Admin: 04/02/22 08:47 Dose: 5 mg Documented By: Admin: 04/01/22 08:13 Dose: 5 mg Documented By: Admin: 03/31/22 10:20 Dose: 5 mg Documented By: TUTU Fluticasone Furoate (Fluticasone Furoate 200mcg 14 Puffs/Inhaler) 1 puffs INH DAILY PREETI Stop: 04/30/22 08:59 Last Admin: 04/10/22 08:37 Dose: 1 puffs Documented By: Admin: 04/09/22 08:05 Dose: 1 puffs Documented By: Admin: 04/08/22 07:59 Dose: 1 puffs Documented By: Admin: 04/07/22 09:12 Dose: 1 puffs Documented By: Admin: 04/06/22 08:32 Dose: 1 puffs Documented By: Admin: 04/05/22 08:36 Dose: 1 puffs Documented By: Admin: 04/04/22 08:39 Dose: 1 puffs Documented By: Admin: 04/03/22 08:51 Dose: 1 puffs Documented By: Admin: 04/02/22 08:48 Dose: 1 puffs Documented By: Admin: 04/01/22 08:12 Dose: 1 puffs Documented By: Admin: 03/31/22 10:19 Dose: 1 puffs Documented By: TUTU Hydralazine HCl (Hydralazine Hcl 20 Mg/Ml Vial) 10 mg IV Q6H PRN PRN Reason: SBP >180 or DBP >100 Stop: 05/07/22 15:52 Last Admin: 04/09/22 23:55 Dose: 10 mg Documented By: Admin: 04/08/22 22:47 Dose: 10 mg Documented By: SARAH Hydralazine HCl (Hydralazine 10 Mg Tab) 40 mg PO QID PREETI Stop: 05/09/22 12:59 Last Admin: 04/10/22 08:36 Dose: 40 mg Documented By: Admin: 04/09/22 21:12 Dose: 40 mg Documented By: Admin: 04/09/22 17:05 Dose: 40 mg Documented By: Admin: 04/09/22 12:38 Dose: 40 mg Documented By: CONCETTA Insulin Aspart (Insulin Aspart Per Unit) 0 units SC ACHS PREETI Stop: 04/29/22 16:59 Last Admin: 04/10/22 08:43 Dose: 7 units Documented By: CONCETTA Co-signed By: LUIGI Admin: 04/09/22 21:28 Dose: 1 units Documented By: SARAH Co-signed By: [place]INA Admin: 04/09/22 17:12 Dose: 8 units Documented By: CONCETTA Co-signed By: LUIGI Admin: 04/09/22 11:52 Dose: 7 units Documented By: CONCETTA Co-signed By: LUIGI Admin: 04/09/22 08:01 Dose: 5 units Documented By: CONCETTA Co-signed By: JANEL Admin: 04/08/22 19:45 Dose: Not Given Documented By: Admin: 04/08/22 16:54 Dose: 4 units Documented By: LENA Co-signed By: SUNDAR Admin: 04/08/22 12:22 Dose: 4 units Documented By: LENA Co-signed By: LUIGI Admin: 04/08/22 08:18 Dose: 7 units Documented By: LENA Co-signed By: ANH Admin: 04/07/22 20:27 Dose: Not Given Documented By: Admin: 04/07/22 16:58 Dose: 6 units Documented By: LENA Co-signed By: MP Admin: 04/07/22 12:36 Dose: Not Given Documented By: JESSICA Co-signed By: JONE Admin: 04/07/22 09:07 Dose: Not Given Documented By: Admin: 04/06/22 21:31 Dose: Not Given Documented By: Admin: 04/06/22 17:48 Dose: 2 units Documented By: YANET Co-signed By: JULIA Admin: 04/06/22 13:16 Dose: 3 units Documented By: YANET Co-signed By: JULIA Admin: 04/06/22 08:31 Dose: 6 units Documented By: YANET Co-signed By: DAYDAY Admin: 04/05/22 20:41 Dose: 1 units Documented By: TREVOR Co-signed By: MICHELLE Admin: 04/05/22 17:30 Dose: 4 units Documented By: EVE Co-signed By: JULIA Admin: 04/05/22 12:45 Dose: 4 units Documented By: TENZIN Co-signed By: JOSIE Admin: 04/05/22 08:45 Dose: 7 units Documented By: TENZIN Co-signed By: JOSIE Admin: 04/04/22 20:35 Dose: Not Given Documented By: Admin: 04/04/22 17:41 Dose: 2 units Documented By: TENZIN Co-signed By: DANNY Admin: 04/04/22 12:36 Dose: 8 units Documented By: TENZIN Co-signed By: DANNY Admin: 04/04/22 08:43 Dose: 6 units Documented By: TENZIN Co-signed By: DANNY Admin: 04/03/22 20:44 Dose: Not Given Documented By: Admin: 04/03/22 17:36 Dose: 5 units Documented By: SAMAN Co-signed By: [facility] Admin: 04/03/22 12:27 Dose: 5 units Documented By: SAMAN Co-signed By: SYLVIA Admin: 04/03/22 08:40 Dose: 2 units Documented By: SAMAN Co-signed By: DANNY Admin: 04/02/22 20:27 Dose: Not Given Documented By: Admin: 04/02/22 17:18 Dose: 3 units Documented By: BROOKEN Co-signed By: [facility] Admin: 04/02/22 12:44 Dose: 5 units Documented By: SAMAN Co-signed By: LDS Admin: 04/02/22 08:45 Dose: 3 units Documented By: SAMAN Co-signed By: LENA Admin: 04/01/22 20:30 Dose: Not Given Documented By: Admin: 04/01/22 17:24 Dose: 5 units Documented By: TUTU Co-signed By: RAOUL Admin: 04/01/22 12:42 Dose: 3 units Documented By: TUTU Co-signed By: DANNY Admin: 04/01/22 09:30 Dose: 5 units Documented By: TUTU Co-signed By: ADELE Admin: 03/31/22 19:54 Dose: Not Given Documented By: Admin: 03/31/22 17:41 Dose: 4 units Documented By: TUTU Co-signed By: DAYDAY Admin: 03/31/22 12:39 Dose: 4 units Documented By: TUTU Co-signed By: DAYDAY Admin: 03/31/22 09:00 Dose: 5 units Documented By: TUTU Co-signed By: ZEUS Admin: 03/30/22 20:20 Dose: Not Given Documented By: Admin: 03/30/22 18:06 Dose: Not Given Documented By: DENA Co-signed By: DAYDAY Insulin Glargine (Lantus Per Unit Charge) 10 units SQ QAM PREETI Stop: 04/30/22 08:59 Last Admin: 04/10/22 08:44 Dose: 10 units Documented By: CONCETTA Co-signed By: LUIGI Admin: 04/09/22 08:00 Dose: 10 units Documented By: CONCETTA Co-signed By: JANEL Admin: 04/08/22 08:10 Dose: 10 units Documented By: LENA Co-signed By: ANH Admin: 04/07/22 09:07 Dose: 10 units Documented By: JESSICA Co-signed By: UMANG Admin: 04/06/22 08:33 Dose: 10 units Documented By: YANET Co-signed By: DAYDAY Admin: 04/05/22 08:46 Dose: 10 units Documented By: TENZIN Co-signed By: JOSIE Admin: 04/04/22 08:44 Dose: 10 units Documented By: TENZIN Co-signed By: DANNY Admin: 04/03/22 08:40 Dose: 10 units Documented By: SAMAN Co-signed By: DANNY Admin: 04/02/22 08:46 Dose: 10 units Documented By: SAMAN Co-signed By: LENA Admin: 04/01/22 09:31 Dose: 10 units Documented By: TUTU Co-signed By: ADELE Admin: 03/31/22 09:01 Dose: 10 units Documented By: TUTU Co-signed By: DMReginald Levothyroxine Sodium (Levothyroxine Sodium 100 Mcg Tablet) 100 mcg PO DAILYBB PREETI Stop: 05/01/22 06:29 Last Admin: 04/10/22 04:59 Dose: 100 mcg Documented By: Admin: 04/09/22 06:14 Dose: 100 mcg Documented By: Admin: 04/08/22 05:57 Dose: 100 mcg Documented By: Admin: 04/07/22 06:02 Dose: 100 mcg Documented By: Admin: 04/06/22 06:00 Dose: 100 mcg Documented By: Admin: 04/05/22 06:20 Dose: 100 mcg Documented By: Admin: 04/04/22 06:35 Dose: 100 mcg Documented By: Admin: 04/03/22 06:14 Dose: 100 mcg Documented By: Admin: 04/02/22 04:25 Dose: 100 mcg Documented By: Admin: 04/01/22 05:45 Dose: 100 mcg Documented By: HFS Losartan Potassium (Losartan Potassium 50 Mg Tab) 50 mg PO DAILY PREETI Stop: 05/08/22 08:59 Last Admin: 04/10/22 08:36 Dose: 50 mg Documented By: Admin: 04/09/22 08:04 Dose: 50 mg Documented By: Admin: 04/08/22 08:03 Dose: 50 mg Documented By: LENA Metoprolol Succinate (Metoprolol Succ 50mg Ext Rel Tab) 50 mg PO BID17 PREETI Stop: 04/30/22 16:59 Last Admin: 04/10/22 08:36 Dose: 50 mg Documented By: Admin: 04/09/22 17:06 Dose: 50 mg Documented By: Admin: 04/09/22 10:22 Dose: Not Given Documented By: Admin: 04/08/22 16:50 Dose: 50 mg Documented By: Admin: 04/08/22 08:07 Dose: 50 mg Documented By: Admin: 04/07/22 16:52 Dose: 50 mg Documented By: Admin: 04/07/22 09:09 Dose: 50 mg Documented By: Admin: 04/06/22 18:05 Dose: 50 mg Documented By: Admin: 04/06/22 08:29 Dose: 50 mg Documented By: Admin: 04/05/22 17:17 Dose: 50 mg Documented By: [employer] Admin: 04/05/22 08:37 Dose: 50 mg Documented By: Admin: 04/04/22 17:00 Dose: 50 mg Documented By: Admin: 04/04/22 08:38 Dose: 50 mg Documented By: Admin: 04/03/22 17:35 Dose: 50 mg Documented By: Admin: 04/03/22 08:50 Dose: 50 mg Documented By: Admin: 04/02/22 17:19 Dose: 50 mg Documented By: Admin: 04/02/22 08:47 Dose: 50 mg Documented By: Admin: 04/01/22 16:08 Dose: 50 mg Documented By: Admin: 04/01/22 08:13 Dose: 50 mg Documented By: Admin: 03/31/22 17:40 Dose: 50 mg Documented By: TUTU Montelukast Sodium (Montelukast Sodium 10 Mg Tablet) 10 mg PO HS PREETI Stop: 04/30/22 20:59 Last Admin: 04/09/22 21:10 Dose: 10 mg Documented By: Admin: 04/08/22 20:40 Dose: 10 mg Documented By: Admin: 04/07/22 20:27 Dose: 10 mg Documented By: Admin: 04/06/22 20:01 Dose: 10 mg Documented By: Admin: 04/05/22 20:35 Dose: 10 mg Documented By: Admin: 04/04/22 19:48 Dose: 10 mg Documented By: Admin: 04/03/22 20:34 Dose: 10 mg Documented By: Admin: 04/02/22 20:28 Dose: 10 mg Documented By: Admin: 04/01/22 20:30 Dose: 10 mg Documented By: Admin: 03/31/22 19:46 Dose: 10 mg Documented By: HFS Pantoprazole Sodium (Pantoprazole 40 Mg Tab) 40 mg PO DAILY PREETI Stop: 04/30/22 09:14 Last Admin: 04/10/22 08:37 Dose: 40 mg Documented By: Admin: 04/09/22 08:04 Dose: 40 mg Documented By: Admin: 04/08/22 08:01 Dose: 40 mg Documented By: Admin: 04/07/22 09:10 Dose: 40 mg Documented By: Admin: 04/06/22 08:31 Dose: 40 mg Documented By: Admin: 04/05/22 08:38 Dose: 40 mg Documented By: Admin: 04/04/22 08:38 Dose: 40 mg Documented By: Admin: 04/03/22 08:51 Dose: 40 mg Documented By: Admin: 04/02/22 08:46 Dose: 40 mg Documented By: Admin: 04/01/22 08:13 Dose: 40 mg Documented By: Admin: 03/31/22 10:20 Dose: 40 mg Documented By: TUTU Pregabalin (Pregabalin 50 Mg Cap) 50 mg PO BID PREETI Stop: 04/30/22 08:59 Last Admin: 04/10/22 10:00 Dose: 50 mg Documented By: Admin: 04/09/22 21:09 Dose: 50 mg Documented By: Admin: 04/09/22 08:08 Dose: 50 mg Documented By: Admin: 04/08/22 20:36 Dose: 50 mg Documented By: Admin: 04/08/22 08:10 Dose: 50 mg Documented By: Admin: 04/07/22 20:33 Dose: 50 mg Documented By: Admin: 04/07/22 09:11 Dose: 50 mg Documented By: Admin: 04/06/22 20:05 Dose: 50 mg Documented By: Admin: 04/06/22 08:35 Dose: 50 mg Documented By: Admin: 04/05/22 20:42 Dose: 50 mg Documented By: Admin: 04/05/22 08:38 Dose: 50 mg Documented By: Admin: 04/04/22 19:50 Dose: 50 mg Documented By: Admin: 04/04/22 08:43 Dose: 50 mg Documented By: Admin: 04/03/22 20:37 Dose: 50 mg Documented By: Admin: 04/03/22 08:54 Dose: 50 mg Documented By: Admin: 04/02/22 20:34 Dose: 50 mg Documented By: Admin: 04/02/22 08:51 Dose: 50 mg Documented By: Admin: 04/01/22 20:33 Dose: 50 mg Documented By: Admin: 04/01/22 08:20 Dose: 50 mg Documented By: Admin: 03/31/22 19:53 Dose: 50 mg Documented By: Admin: 03/31/22 09:02 Dose: 50 mg Documented By: TUTU Sertraline HCl (Sertraline Hcl 100 Mg Tablet) 100 mg PO DAILY PREETI Stop: 04/30/22 08:59 Last Admin: 04/10/22 08:37 Dose: 100 mg Documented By: Admin: 04/09/22 08:04 Dose: 100 mg Documented By: Admin: 04/08/22 08:02 Dose: 100 mg Documented By: Admin: 04/07/22 09:08 Dose: 100 mg Documented By: Admin: 04/06/22 08:31 Dose: 100 mg Documented By: Admin: 04/05/22 08:38 Dose: 100 mg Documented By: Admin: 04/04/22 08:38 Dose: 100 mg Documented By: Admin: 04/03/22 08:50 Dose: 100 mg Documented By: Admin: 04/02/22 08:46 Dose: 100 mg Documented By: Admin: 04/01/22 08:13 Dose: 100 mg Documented By: Admin: 03/31/22 10:20 Dose: 100 mg Documented By: TUTU Spironolactone (Spironolactone 25 Mg Tab) 25 mg PO QAM PREETI Stop: 05/03/22 08:59 Last Admin: 04/10/22 08:37 Dose: 25 mg Documented By: Admin: 04/09/22 08:04 Dose: 25 mg Documented By: Admin: 04/08/22 08:02 Dose: 25 mg Documented By: Admin: 04/07/22 09:11 Dose: 25 mg Documented By: Admin: 04/06/22 08:31 Dose: 25 mg Documented By: Admin: 04/05/22 08:38 Dose: 25 mg Documented By: Admin: 04/04/22 08:37 Dose: 25 mg Documented By: Admin: 04/03/22 08:49 Dose: 25 mg Documented By: SAMAN Umeclidinium/Vilanterol (Umeclidinium/Vilanterol 62.5/25mcg 7 Puffs/Inhaler) 1 puffs INH DAILY PREETI Stop: 04/30/22 08:59 Last Admin: 04/10/22 08:38 Dose: 1 puffs Documented By: Admin: 04/09/22 08:06 Dose: 1 puffs Documented By: Admin: 04/08/22 07:59 Dose: 1 puffs Documented By: Admin: 04/07/22 14:40 Dose: 1 puffs Documented By: Admin: 04/06/22 08:34 Dose: 1 puffs Documented By: Admin: 04/05/22 08:36 Dose: 1 puffs Documented By: Admin: 04/04/22 08:38 Dose: 1 puffs Documented By: Admin: 04/03/22 08:51 Dose: 1 puffs Documented By: Admin: 04/02/22 08:48 Dose: 1 puffs Documented By: Admin: 04/01/22 08:12 Dose: 1 puffs Documented By: Admin: 03/31/22 10:21 Dose: 1 puffs Documented By: TUTU Discontinued Medications Clonidine HCl (Clonidine Hcl 0.1 Mg Tab) 0.1 mg PO NOW ONE Stop: 04/05/22 00:22 Last Admin: 04/05/22 00:42 Dose: 0.1 mg Documented By: PK HCTZ/Losartan Potassium (Losartan/Hctz 50/12.5mg Tab) 1 tab PO DAILY PREETI Stop: 04/30/22 08:59 Last Admin: 04/02/22 08:46 Dose: 1 tab Documented By: Admin: 04/01/22 08:13 Dose: 1 tab Documented By: Admin: 03/31/22 10:19 Dose: 1 tab Documented By: TUTU Hydralazine HCl (Hydralazine 10 Mg Tab) 20 mg PO NOW STA Stop: 03/30/22 16:15 Last Admin: 03/30/22 17:18 Dose: 20 mg Documented By: DENA Hydralazine HCl (Hydralazine Hcl 20 Mg/Ml Vial) 5 mg IV NOW ONE Stop: 03/30/22 20:31 Last Admin: 03/30/22 20:24 Dose: 5 mg Documented By: SUZAN Hydralazine HCl (Hydralazine Hcl 20 Mg/Ml Vial) 5 mg IV NOW ONE Stop: 03/30/22 23:26 Last Admin: 03/31/22 01:36 Dose: 5 mg Documented By: SUZAN Hydralazine HCl (Hydralazine Hcl 20 Mg/Ml Vial) Confirm Administered Dose 20 mg .ROUTE .STK-MED ONE Stop: 03/31/22 01:37 Last Increment: 03/31/22 02:00 Dose: 5 mg Documented By: SUZAN Hydralazine HCl (Hydralazine 10 Mg Tab) 20 mg PO QID PREETI Stop: 04/30/22 08:59 Last Admin: 03/31/22 19:46 Dose: 20 mg Documented By: Admin: 03/31/22 17:40 Dose: 20 mg Documented By: Admin: 03/31/22 12:41 Dose: 20 mg Documented By: Admin: 03/31/22 10:20 Dose: 20 mg Documented By: TUTU Hydralazine HCl (Hydralazine Hcl 25 Mg Tab) 25 mg PO QID PREETI Stop: 05/01/22 08:59 Last Admin: 04/02/22 08:47 Dose: 25 mg Documented By: Admin: 04/01/22 20:30 Dose: 25 mg Documented By: Admin: 04/01/22 16:08 Dose: 25 mg Documented By: Admin: 04/01/22 12:40 Dose: 25 mg Documented By: Admin: 04/01/22 09:28 Dose: 25 mg Documented By: TUTU Hydralazine HCl (Hydralazine Hcl 20 Mg/Ml Vial) 5 mg IV NOW ONE Stop: 04/01/22 22:43 Last Admin: 04/01/22 22:54 Dose: 5 mg Documented By: PEARL Hydralazine HCl (Hydralazine Hcl 20 Mg/Ml Vial) Confirm Administered Dose 20 mg .ROUTE .STK-MED ONE Stop: 04/01/22 22:46 Last Admin: 04/01/22 22:56 Dose: Not Given Documented By: PEARL Hydralazine HCl (Hydralazine Tab 50 Mg Tab) 50 mg PO TID PREETI Stop: 05/02/22 13:59 Last Admin: 04/07/22 14:39 Dose: 50 mg Documented By: Admin: 04/07/22 09:10 Dose: 50 mg Documented By: Admin: 04/06/22 20:02 Dose: 50 mg Documented By: Admin: 04/06/22 13:16 Dose: 50 mg Documented By: Admin: 04/06/22 08:31 Dose: 50 mg Documented By: Admin: 04/05/22 20:35 Dose: 50 mg Documented By: Admin: 04/05/22 13:31 Dose: 50 mg Documented By: Admin: 04/05/22 08:36 Dose: 50 mg Documented By: Admin: 04/04/22 19:49 Dose: 50 mg Documented By: Admin: 04/04/22 13:13 Dose: 50 mg Documented By: Admin: 04/04/22 08:38 Dose: 50 mg Documented By: Admin: 04/03/22 20:33 Dose: 50 mg Documented By: Admin: 04/03/22 14:00 Dose: 50 mg Documented By: Admin: 04/03/22 08:49 Dose: 50 mg Documented By: Admin: 04/02/22 20:28 Dose: 50 mg Documented By: Admin: 04/02/22 13:34 Dose: 50 mg Documented By: SAMAN Hydralazine HCl (Hydralazine Hcl 20 Mg/Ml Vial) 5 mg IV NOW ONE Stop: 04/04/22 04:01 Last Admin: 04/04/22 04:47 Dose: 5 mg Documented By: DARIN Hydralazine HCl (Hydralazine Hcl 20 Mg/Ml Vial) 7.5 mg IV Q6H PRN PRN Reason: Hypertension Stop: 05/04/22 23:15 Last Admin: 04/04/22 23:40 Dose: 7.5 mg Documented By: PK Hydralazine HCl (Hydralazine Hcl 25 Mg Tab) 75 mg PO TID PREETI Stop: 05/07/22 20:59 Last Admin: 04/07/22 23:59 Dose: 75 mg Documented By: RUI Hydralazine HCl (Hydralazine Tab 50 Mg Tab) 50 mg PO TID PREETI Stop: 05/08/22 08:59 Last Admin: 04/09/22 08:05 Dose: 50 mg Documented By: Admin: 04/08/22 20:39 Dose: 50 mg Documented By: Admin: 04/08/22 16:50 Dose: 50 mg Documented By: Admin: 04/08/22 11:44 Dose: 50 mg Documented By: LENA Lorazepam 0.25 mg/ Syringe 0.25 mls @ 2 mls/min IV NOW STA Stop: 04/02/22 01:21 Last Admin: 04/02/22 01:28 Dose: 2 mls/min Documented By: PEARL Lorazepam 0.25 mg/ Syringe 0.25 mls @ 2 mls/min IV NOW STA Stop: 04/05/22 00:34 Last Admin: 04/05/22 00:42 Dose: 2 mls/min Documented By: PK Lorazepam 1 mg/ Syringe 1 mls @ 2 mls/min IV NOW STA Stop: 04/07/22 15:38 Last Admin: 04/07/22 15:57 Dose: 2 mls/min Documented By: JESSICA Ioversol (Optiray 320 500ml) 112 ml IV ONCE ONE Stop: 03/30/22 12:41 Last Admin: 03/30/22 12:43 Dose: 112 ml Documented By: FABIAN Lorazepam (Lorazepam 0.5 Mg Tab) 0.5 mg PO NOW STA Stop: 04/01/22 22:43 Last Admin: 04/01/22 22:56 Dose: 0.5 mg Documented By: PEARL Lorazepam (Lorazepam 0.5 Mg Tab) 0.5 mg PO NOW STA Stop: 04/04/22 21:34 Last Admin: 04/04/22 21:39 Dose: 0.5 mg Documented By: DOT Losartan Potassium (Losartan Potassium 50 Mg Tab) 50 mg PO QAM PREETI Stop: 05/03/22 08:59 Last Admin: 04/05/22 08:37 Dose: 50 mg Documented By: Admin: 04/04/22 08:38 Dose: 50 mg Documented By: Admin: 04/03/22 08:50 Dose: 50 mg Documented By: SAMAN Losartan Potassium (Losartan Potassium 50 Mg Tab) 50 mg PO BID PREETI Stop: 05/05/22 20:59 Last Admin: 04/07/22 09:09 Dose: 50 mg Documented By: Admin: 04/06/22 20:01 Dose: 50 mg Documented By: Admin: 04/06/22 08:29 Dose: 50 mg Documented By: Admin: 04/05/22 20:35 Dose: 50 mg Documented By: TREVOR Magnesium Oxide (Magnesium Oxide 400 Mg Tab) 400 mg PO ONE ONE Stop: 04/02/22 08:20 Last Admin: 04/02/22 10:35 Dose: 400 mg Documented By: SAMAN Metoprolol Succinate (Metoprolol Succ 25mg Ext Rel Tab) 25 mg PO NOW STA Stop: 03/30/22 16:15 Last Admin: 03/30/22 17:18 Dose: 25 mg Documented By: DENA Metoprolol Succinate (Metoprolol Succ 25mg Ext Rel Tab) 25 mg PO Q8H PREETI Stop: 04/30/22 08:59 Last Admin: 03/31/22 10:19 Dose: 25 mg Documented By: TUTU Morphine Sulfate (Morphine Sulfate 2 Mg/Ml Carp) 2 mg IV NOW STA Stop: 04/02/22 00:26 Last Admin: 04/02/22 00:40 Dose: 2 mg Documented By: PEARL Potassium Chloride (Potassium Chloride 10 Meq Tabcr) 10 meq PO NOW STA Stop: 03/30/22 12:16 Last Admin: 03/30/22 12:57 Dose: 10 meq Documented By: CARI Potassium Chloride (Potassium Chloride Crtab 20 Meq Tabcr) 40 meq PO NOW STA Stop: 03/30/22 14:13 Last Admin: 03/30/22 14:53 Dose: 40 meq Documented By: CARI Potassium Chloride (Potassium Chloride Crtab 20 Meq Tabcr) 20 meq PO NOW STA Stop: 03/31/22 08:00 Last Admin: 03/31/22 09:02 Dose: 20 meq Documented By: TUTU Potassium Chloride (Potassium Chloride Crtab 20 Meq Tabcr) 20 meq PO NOW ONE Stop: 04/01/22 08:15 Last Admin: 04/01/22 09:37 Dose: 20 meq Documented By: TUTU Potassium Chloride (Potassium Chloride Crtab 20 Meq Tabcr) 40 meq PO NOW STA Stop: 04/02/22 08:19 Last Admin: 04/02/22 08:45 Dose: 40 meq Documented By: SAMAN Spironolactone (Spironolactone 12.5 Mg Tab) 12.5 mg PO DAILY PREETI Stop: 04/30/22 12:59 Last Admin: 04/02/22 08:47 Dose: 12.5 mg Documented By: Admin: 04/01/22 08:13 Dose: 12.5 mg Documented By: Admin: 03/31/22 13:31 Dose: 12.5 mg Documented By: TUTU Spironolactone (Spironolactone 12.5 Mg Tab) 12.5 mg PO NOW ONE Stop: 04/02/22 13:53 Last Admin: 04/02/22 14:15 Dose: 12.5 mg Documented By: DLN Description This is a 21 electrode EEG with a single channel dedicated to limited EKG. The electrodes were placed in accordance with the International 10-20 system. Interpretation The predominant background activity consists of a fairly well modulated 9 Hz activity, of up to 30 mV in amplitude, seen symmetrically distributed over the posterior head regions bilaterally , spreading anteriorly.. This activity attenuates somey with eye-opening and other alerting procedures. Photic stimulation was performed and elicited no change in the background activity and no abnormal responses were seen. Hyperventilation was not performed. A Moderate amount of muscle and movement artifact activity contaminated the recording , hindering interpretation from time to time but not to any significant degree overall. The patient was somewhat agitated at the fact that she was having this procedure and would yell and curse at the catheterization laboratory technician. She had a lot of movement. There were 2 episodes where she had a flexion jerking of the head and trunk without electrocerebral incontinent. There was movement artifact only. Throughout the waking portion of the recording, no focal abnormalities, abnormal slow activity, or potentially epileptogenic discharges are seen. The patient entered the drowsy state with no further activation. In summary, this EEG was normal during wakefulness and drowsiness. No focal abnormalities, potentially epileptogenic discharges, or abnormal slow activity was seen. in addition, she had jerking leg movements with out electrocerebral accompaniment. Clinical Correlation The abscence of potentially epileptogenic activity does not exclude a seizure disorder, since interictally, EEGs can be normal. Clinical correlation is required. [facility] Procedure Codes Indication for Procedure (1) Seizure-like activity: Neurology Neurology: 47177 EEG include record awake & drowsy
[2022-04-10] MEDS: hydrALAZINE HCL 20 MG/ML VIAL IV PRN (12:00)
--- NOTE | 2022-04-10 14:14 | Neurology Consultation ---
Date of Consultation April 10, 2022 Assessment & Plan (1) Seizure-like activity: Plan Patient has had seizure-like activity multiple times during her hospitalization. She really seems to have an alteration in consciousness with little recall for the event itself, as well as a convincing postictal period. On neurologic examination she is back to baseline today with no encephalopathy, meningeal signs, or focal neurologic findings. Apparently, we cannot get an MRI of the brain because of a pacemaker. EEG showed jerk like movements (which may have been volitional ) without electrocerebral accompaniment. Recommendations: 1. Nevertheless, the activity is unusual enough that I think it is reasonable to initiate a oral anticonvulsant. 2. Given her age, psychiatric issues, and current medications, I would avoid levetiracetam as he can give cognitive and emotional / psychiatric side effects. 3. I think lamotrigine is an excellent medication for her ( not only controlling seizures but for helping her mood ) but it takes 3 or 4 weeks to build this up to a reasonable level. You cannot given IV or loading dose. 4. Therefore, Depakote 500mg ER (24 hour release) once daily 5. If we can get an MRi of the brain, that would be optimum Overall, I spent a total of 90 minutes with this case including review of records, review of CT films, direct evaluation of patient bedside, and discussion of the case with the patient and RN at bedside, and Dr. Russ, incl uding differential diagnosis and treatment options History of Present Illness Reason for Consultation: patient is a 77-year-old, who I was asked to see at the request of , for neurologic consultation regarding possible seizures. Requesting Physician: Dr. Russ Attending Physician: Robson Russ MD History of Present Illness this patient has a history of paroxysmal atrial fibrillation with rapid ventricular rate, hypertension, pacemaker, and depression. She is on 81 mg aspirin tablet daily and atorvastatin 40 mg daily. There is some history that suggests she has had seizures in the past but the patient denies this. She was admitted March 30 with chest pain and has been in the hospital since. On April 07, at 3:35 p.m. she was noted to have some confusion and decreased responsiveness. This lasted about 40 seconds. There is no loss of consciousness and no postictal state. It was felt to be a possible seizure versus conversion disorder or some other issue. She was given 1 mg of Ativan and was fine since. This morning, and 399 she was found to be confused. She was stiff all over and felt "electric shocks". She could not talk but she remembers the incident. She was very combative and confused and unlike herself for several hours thereafter. An EEG this morning showed the patient having myoclonic like jerks of her head and upper trunk without electrocerebral accompaniment. Apparently she was somewhat agitated and very mean with her words to the manufacturing test technician. She does not remember this although she does remember the EEG and sticky stuff in her hair. She has had no further events. Nursing reports she is quite calm and pleasant. Currently she feels back to baseline with no weakness, numbness, headache, pain, confusion, speech problems, or vision issues. She is sitting up in the chair without any lightheadedness or dizziness. CT scan of the head April 10 was unremarkable. Laboratory studies were largely unremarkable as well although the BUN was 40 and creatinine was 1.2. Glucose was 178. CBC was unremarkable. Magnesium was normal. Allergies Allergy/AdvReac Type Severity Reaction Status Date / Time enalaprilat [From Vasotec] Allergy Mild Redness of Verified 03/30/22 14:49 Skin Home Medications Medication Instructions Recorded Confirmed Type albuterol sulfate 90 mcg/actuation 1 puff inhalation QID PRN 03/30/22 03/30/22 History aerosol inhaler (ProAir HFA) Shortness Of Breath apixaban 5 mg tablet (Eliquis) 5 mg PO BID 03/30/22 03/30/22 History aspirin 81 mg chewable tablet 81 mg PO DAILY 03/30/22 03/30/22 History atorvastatin 40 mg tablet 40 mg PO HS 03/30/22 03/30/22 History budesonide 160 mcg-glycopyr 9 2 inh inhalation BID 03/30/22 03/30/22 History mcg-formot 4.8 mcg/actuation HFA inhaler (Breztri Aerosphere) calcium carb-vit D3-minerals 600 1 tab PO DAILY 03/30/22 03/30/22 History mg calcium-200 unit tablet (Calcium 600 + Minerals) diltiazem HCl 180 mg 180 mg PO BID 03/30/22 03/30/22 History tablet,extended release 24 hr donepezil 5 mg tablet 5 mg PO DAILY 03/30/22 03/30/22 History ferrous sulfate 325 mg (65 mg 325 mg PO DAILY 03/30/22 03/30/22 History iron) tablet furosemide 40 mg tablet 40 mg PO DAILY PRN leg edema 03/30/22 03/30/22 History hydralazine 10 mg tablet 20 mg PO QID 03/30/22 03/30/22 History insulin glargine 100 unit/mL (3 10 unit subcut QAM 03/30/22 03/30/22 History mL) subcutaneous pen (Lantus Solostar U-100 Insulin) insulin lispro 100 unit/mL 1 sliding scale dose subcut 03/30/22 03/30/22 History subcutaneous cartridge (Humalog USEASDIRECTD U-100 Insulin) levothyroxine 100 mcg tablet 100 mcg PO DAILY 03/30/22 03/30/22 History losartan 50 mg-hydrochlorothiazide 1 tab PO DAILY 03/30/22 03/30/22 History 12.5 mg tablet metoprolol succinate 50 mg 25 mg PO Q8H 03/30/22 03/30/22 History tablet,extended release 24 hr montelukast 10 mg tablet 10 mg PO HS 03/30/22 03/30/22 History (Singulair) nitroglycerin 0.4 mg sublingual 0.4 mg sublingual DIRECTED 03/30/22 03/30/22 History tablet olanzapine 2.5 mg tablet (Zyprexa) 2.5 mg PO HS 03/30/22 03/30/22 History omeprazole 20 mg capsule,delayed 20 mg PO DAILY 03/30/22 03/30/22 History release potassium chloride 10 mEq 10 meq PO DAILY 03/30/22 03/30/22 History capsule,extended release pregabalin 50 mg capsule (Lyrica) 50 mg PO BID 03/30/22 03/30/22 History sertraline 100 mg tablet (Zoloft) 100 mg PO DAILY 03/30/22 03/30/22 History Patient History Medical History Abdominal hernia As a child, ? age 5 Atrial fibrillation CHF (congestive heart failure) Chronic kidney disease Dementia Depression Diabetes mellitus Gastroesophageal reflux Hyperlipidemia Hypertension Hypothyroid Pacemaker Seizures Surgical History H/O: hysterectomy History of appendectomy Hx of tonsillectomy Family History Mother , in her 70s with Alzheimer's disease Alzheimer disease Father , around age 80 with dementia and Parkinson's Alzheimer disease Primary Parkinson's disease Brother Cerebral aneurysm Social History Smoking Status: Former smoker Age Started Using Tobacco: 21; Age Quit Using Tobacco: 40; Years Smoked: 37; Hx Alcohol Use: No Hx Substance Use: No Preferred Language: Bangladeshi Communication Ability: Impaired Virtualization Consultant Required: No Beliefs That Will Affect Care: None Current Living Situation: [facility] Current Living Situation Comment: [facility] 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 [employer] at age 55 Feels Safe at Home: Yes Assistive Devices: Walker Review of Systems Constitutional: + fatigue; no fever and no weakness Eyes: no diplopia, no eye pain and no worsening vision Ear, Nose, Mouth, Throat: no ear pain, no tinnitus, no hearing loss, no dizziness, no snoring, no hoarseness and no dysphagia Respiratory: no cough and no dyspnea Cardiovascular: no chest pain, no palpitations and no lightheadedness Gastrointestinal: no abdominal pain, no nausea and no vomiting Genitourinary: no dysuria, no urinary frequency and no urinary incontinence Musculoskeletal: no back pain, no neck pain, no radicular pain, no joint pain and no myalgia Integumentary: no rash and no lesions Neurologic: + memory loss; no gait abnormality, no localized weakness, no generalized weakness, no tingling, no numbness, no tremor(s), no abnormal movements, no headache(s), no abnormal speech and no confusion Psychiatric: + depression; no irritability, no anxiety, no difficulty concentrating, no confusion and no hallucinations Endocrine: no fatigue and no flushing Hematologic / Lymphatic: no easy bleeding and no easy bruising Allergy / Immunological: no urticaria and no problem reported Exam (Neuro) Physical Exam: The patient is right-handed. The patient is awake, alert, and attentive. Speech is normal without any aphasia or dysarthria. The patient can name objects, repeat phrases, and has normal spontaneous speech. Mentation and thought processes are intact, with orientation to person, place and time, and normal fund of knowledge. Attention and concentration are normal. Mood and affect are normal and appropriate. General appearance and grooming are normal. Short and long-term memory are intact seem intact to most questions although she may have some mild memory dysfunction. The discs are sharp with positive venous pulsations bilaterally. There are no exudates, hemorrhages, or blood vessel changes seen. Pupils are 4 mm bilaterally and reactive to light. Extraocular eye muscles are intact without nystagmus. Visual acuity and visual snow seem normal grossly to confrontation. There are no deficits to sensation in the face in all 3 distributions of the fifth cranial nerve bilaterally. Corneal reflexes are positive bilaterally. Facial strength and symmetry was normal bilaterally. Hearing seems normal bilaterally. Palate moves well without asymmetry. There is normal sternocleidomastoid and trapezius (shoulder shrug) strength bilaterally. Tongue is midline with good strength bilaterally. Neck has a full range of motion without discomfort. There are no cervical bruits bilaterally. There are no cranial or ocular bruits. Heart is without murmur. There is a regular rhythm and rate. Cervical, thoracic, and lumbar spine are nontender to palpation. Gait Was not tested but stance sitting up in bed is normal. With outstretched arms there is no drift. There are no resting, postural, or action tremors. There is no ataxia with finger to nose testing. There is good facility in the hands. No other abnormal involuntary movements are noted. Motor strength is 5/5 diffusely in the arms bilaterally including deltoids, biceps, triceps, brachioradialis, wrist flexors and extensors, tie inspector, and intrinsic hand muscles. Motor strength is 5/5 diffusely in the legs bilaterally including hip flexors, quadriceps, hamstrings, gastrocnemius, tibialis anterior, tibialis posterior, and Peroneii muscles. Toe extensors are normal and there is good bulk in the extensor digitorum brevis muscles bilaterally. The limbs have good tone without rigidity or spasticity. There is no atrophy noted in the muscles. Muscle bulk is normal, there is no tenderness to palpation, no myotonia to percussion, and no fasciculations seen. Sensory examination is intact to touch and pin throughout all 4 limbs diffusely. Reflexes are 1/4 in the biceps, triceps, brachioradialis tendons bilaterally. Quadriceps and Achilles tendon reflexes are absent Bilaterally. There is no clonus bilaterally. Toes are downgoing with plantar stimulation bilaterally. Peripheral pulses are present and of normal quality distally in all 4 limbs. There is no peripheral edema noted in the limbs. Results & Data ([facility]) Vital Signs (Past 12 Hours) Vital Signs Temp Pulse Pulse Resp BP BP Pulse Ox 04/10/22 11:56 36.5 C 60 17 189/75 H 97 04/10/22 08:00 60 04/10/22 07:40 36.7 C 60 15 179/73 H 93 04/10/22 04:05 37.1 C 60 18 151/76 H 96 O2 Del Method 04/10/22 11:56 Room Air 04/10/22 08:00 04/10/22 07:40 Room Air 04/10/22 04:05 Room Air PG Care Time/CCT Total # of Minutes Spent Total Time Spent with Patient: Total time spent is greater than 50% in coordination of care (as documented) at patient's floor/unit and/or counseling patient: Coding Level of Care Code 57213 Initial Inpt Care Lvl 3 Diagnoses Seizure-like activity R56.9 Time Spent (min) 90 Comment add modifiers as able
[2022-04-10] MEDS: DIVALPROEX EXTENDED RELEASE 500 MG TAB PO SCH (15:52)
--- NOTE | 2022-04-10 16:05 | Hospitalist Progress Note ---
Date of Service April 10, 2022 Assessment & Plan (1) Seizure-like activity: Plan: Presumed Seizure DD:Conversion disorder CT head:No acute intracranial abnormality. Atrophy and microvascular ischemic changes. EEG: EEG was normal during wakefulness and drowsiness. No focal abnormalities, potentially epileptogenic discharges, or abnormal slow activity was seen. in addition, she had jerking leg movements with out electrocerebral accompaniment. Seizure, fall precautions Advised Psychiatry eval:Patient refused Appreciate Neurology Input Started on Depakote 500mg ER once daily Ativan PRN (2) Hypertensive urgency: Plan: Hypertensive urgency Continue diltiazem, metoprolol, losartan, spironolactone Increase hydralazine to 40 mg 4 times daily IV hydralazine as needed Monitor BP (3) Chest pain: Plan: Chest pain secondary to Afib w/ RVR , HTN ECHO showed no wall motion abnormality Pacemaker Interrogation requested Resolved (4) Atrial fibrillation: Plan: H/O Paroxysmal atrial fibrillation. Spontaneously converted to sinus S/P Pacemaker present Continue diltiazem, metoprolol and Eliquis (5) Hypokalemia: Plan: Resolved Monitor (6) Acute kidney injury superimposed on chronic kidney disease: Plan: Baseline Cr ~ 1 Cr 1.4>1.2 Monitor renal function Avoid Nephrotoxic agents as able Monitor (7) Hyperlipidemia: Plan: Continue Atorvastatin (8) Diabetes mellitus: Plan: HbA1c 6.5 Continue insulin per protocol Monitor BGs (9) Gastroesophageal reflux: Plan: continue PPI (10) Depression: Plan: Continue Zoloft Patient refuses psychiatry evaluation (11) Dementia: Plan: -Mild to moderate with history of auditory and visual hallucinations -Continue Aricept (12) Hypothyroid: Plan: Continue levothyroxine (13) DVT prophylaxis: Plan: on Apixaban CODE STATUS: DNR/DNI Admission and Anticipated Discharge Date Admission Date: March 30, 2022 Subjective Patient is seen and examined at bedside Patient had an episode of possible seizure this morning Discussed with Neurologist expeditionary fighting vehicle crewman After presumed postictal state, patient states feeling well Offers no complaints Denies chest pain, dyspnea, dizziness, nausea, abd pain Review of Systems Review of Systems: All systems reviewed & are unremarkable except as noted in Subjective Physical Exam Physical Exam: Physical Exam: Vitals signs as noted above General Appearance:Moderately built and nourished, no apparent distress Head: normocephalic, Atraumatic Eyes: normal inspection, EOMI Neck: supple, Trachea midline Respiratory/Chest: Normal breath sounds, CTA, No accessory muscle use Cardiovascular: S1, S2, No murmur Abdomen/GI:Soft, Non tender, Bowel sounds present Extremities/Musculoskeletal:normal inspection, Trace edema Neurologic/Psych:AAOX3, grossly no focal neurological deficits Skin: normal color, warm Results & Data Results & Data ([facility]) Vital Signs (Past 12 Hours) Vital Signs Temp Pulse Pulse Resp BP BP Pulse Ox 04/10/22 15:54 36.5 C 60 19 158/69 H 96 04/10/22 15:16 60 04/10/22 11:56 36.5 C 60 17 189/75 H 97 04/10/22 08:00 60 04/10/22 07:40 36.7 C 60 15 179/73 H 93 04/10/22 04:05 37.1 C 60 18 151/76 H 96 O2 Del Method 04/10/22 15:54 Room Air 04/10/22 15:16 04/10/22 11:56 Room Air 04/10/22 08:00 04/10/22 07:40 Room Air 04/10/22 04:05 Room Air Laboratory Results [facility] 04/10/22 07:52 Sodium 138 Potassium 4.3 Chloride 107 Carbon Dioxide 24 BUN 40 H Creatinine 1.21 H Glucose 175 H Calcium 10.1 Liver Function 04/10/22 Range/Units 07:52 Total Bilirubin 0.5 (0.2-1.0) mg/dl AST 17 (13-39) U/L ALT 12 (7-52) U/L Alkaline Phosphatase 65 (34-104) U/L Albumin 4.0 (3.4-5.0) gm/dl (1) Dementia Dementia type: unspecified type (2) Hypothyroid Hypothyroidism type: unspecified Qualified Code(s): E03.9 - Hypothyroidism, unspecified
[2022-04-10] MEDS: ATORVASTATIN 40 MG TAB PO SCH (20:37)
[2022-04-10] MEDS: MONTELUKAST SODIUM 10 MG TABLET PO SCH (20:38)
[2022-04-11] MEDS: LEVOTHYROXINE SODIUM 100 MCG TABLET PO SCH (05:49)
[2022-04-11] MEDS: APIXABAN 5 MG TABLET PO SCH ×2 (08:09→21:02)
[2022-04-11] MEDS: hydrALAZINE 10 MG TAB PO SCH ×4 (08:09→21:03)
[2022-04-11] MEDS: METOPROLOL SUCC 50MG EXT REL TAB PO SCH ×2 (08:10→17:16)
[2022-04-11] MEDS: DIVALPROEX EXTENDED RELEASE 500 MG TAB PO SCH (08:10)
[2022-04-11] MEDS: SERTRALINE HCL 100 MG TABLET PO SCH (08:10)
[2022-04-11] MEDS: PANTOprazole 40 MG TAB PO SCH (08:10)
[2022-04-11] MEDS: DONEPEZIL HCL 5 MG TAB PO SCH (08:10)
[2022-04-11] MEDS: dilTIAZem ER 180 MG CAPCR PO SCH ×2 (08:10→21:03)
[2022-04-11] MEDS: LOSARTAN POTASSIUM 50 MG TAB PO SCH (08:10)
[2022-04-11] MEDS: SPIRONOLACTONE 25 MG TAB PO SCH (08:11)
[2022-04-11] MEDS: UMECLIDINIUM/VILANTEROL 62.5/25MCG 7 PUFFS/INHALER INH SCH (08:11)
[2022-04-11] MEDS: FLUTICASONE FUROATE 200MCG 14 PUFFS/INHALER INH SCH (08:11)
[2022-04-11] MEDS: PREGABALIN 50 MG CAP PO SCH ×2 (08:17→21:02)
[2022-04-11] MEDS: ASPIRIN 81 MG CHEW PO SCH (08:17)
[2022-04-11] MEDS: INSULIN ASPART PER UNIT SC SCH ×4 (08:18→21:04)
[2022-04-11] MEDS: LANTUS PER UNIT CHARGE SQ SCH (08:18)
--- NOTE | 2022-04-11 10:38 | Neurology Progress Note ---
Date of Service April 11, 2022 Assessment & Plan (1) Seizure-like activity: Plan Patient has had seizure-like activity multiple times during her hospitalization. She really seemed to have an alteration in consciousness with little recall for the event itself, as well as a convincing postictal period. On neurologic examination, She has been baseline for the last 2 days, with no encephalopathy, meningeal signs, or focal neurologic findings. EEG showed jerk like movements (which may have been volitional ) without electrocerebral accompaniment. She is tolerating Depakote well so far Recommendations: 1. continue valproic acid 500 milligram ER once daily for now. Check a trough Depakote level in 2 weeks. 2. Unfortunately, we cannot get an MRI because of the pacemaker 3. Otherwise I have no further neurologic testing or treatment recommendations to make at this time. Please contact me if I can be of further assistance on this case otherwise I would be happy to see her as an outpatient in 3-4 weeks with the PA. Overall, I spent a total of 35 minutes with this case including review of records, direct evaluation of patient bedside, and discussion of the case with the patient and RN at bedside, and Dr. Russ, including differential diagnosis and treatment options Admission and Anticipated Discharge Date Admission Date: March 30, 2022 Subjective Patient is doing well with no pain or headache. She has not experienced any weakness, numbness, vision issues, or dizziness. Nursing reports no new issues. She tolerated Depakote from last night. Blood pressure is 145/66 and glucose is 166. Results & Data ([facility]) Vital Signs (Past 12 Hours) Vital Signs Temp Pulse Resp BP BP Pulse Ox O2 Del Method 04/11/22 07:39 36.7 C 60 18 145/66 H 94 Room Air 04/11/22 03:11 36.7 C 60 20 128/72 94 Room Air 04/10/22 23:33 176/78 H 04/10/22 23:17 36.4 C L 60 18 183/77 H 97 Room Air Exam (Neuro) Physical Exam: she is awake and alert. Speech is without aphasia or dysarthria. Mood and affect are normal appropriate. Thought processes seem intact to conversation. Extraocular muscles are intact without nystagmus. There is no facial droop. Tongue is midline. Stance sitting in chair is quite normal. Coordination is normal in the arms without tremor or ataxia. Strength seems symmetrical in all 4 limbs both proximally and distally. No abnormal involuntary movements were noted. PG Care Time/CCT Total # of Minutes Spent Total Time Spent with Patient: Total time spent is greater than 50% in coordination of care (as documented) at patient's floor/unit and/or counseling patient: Coding Level of Care Code 50733 Subseq Hosp Care Lvl 3 Diagnoses Seizure-like activity R56.9 Time Spent (min) 35
--- NOTE | 2022-04-11 16:03 | Hospitalist Progress Note ---
Date of Service April 11, 2022 Assessment & Plan (1) Seizure-like activity: Plan: Presumed Seizure DD:Conversion disorder CT head:No acute intracranial abnormality. Atrophy and microvascular ischemic changes. EEG: EEG was normal during wakefulness and drowsiness. No focal abnormalities, potentially epileptogenic discharges, or abnormal slow activity was seen. in addition, she had jerking leg movements with out electrocerebral accompaniment. Seizure, fall precautions Advised Psychiatry eval:Patient refused Appreciate Neurology Input Started on Depakote 500mg ER once daily Ativan PRN Will need Depakote level checked in 2 weeks Will need follow-up with neurology in 3 to 4 weeks. (2) Hypertensive urgency: Plan: Hypertensive urgency Continue diltiazem, metoprolol, losartan, spironolactone Increase hydralazine to 40 mg 4 times daily IV hydralazine as needed Monitor BP (3) Chest pain: Plan: Chest pain secondary to Afib w/ RVR , HTN ECHO showed no wall motion abnormality Pacemaker Interrogation requested Resolved (4) Atrial fibrillation: Plan: H/O Paroxysmal atrial fibrillation. Spontaneously converted to sinus S/P Pacemaker present Continue diltiazem, metoprolol and Eliquis (5) Hypokalemia: Plan: Resolved Monitor (6) Acute kidney injury superimposed on chronic kidney disease: Plan: Baseline Cr ~ 1 Cr 1.4>1.2 Monitor renal function Avoid Nephrotoxic agents as able Monitor (7) Hyperlipidemia: Plan: Continue Atorvastatin (8) Diabetes mellitus: Plan: HbA1c 6.5 Continue insulin per protocol Monitor BGs (9) Gastroesophageal reflux: Plan: continue PPI (10) Depression: Plan: Continue Zoloft Patient refuses psychiatry evaluation (11) Dementia: Plan: -Mild to moderate with history of auditory and visual hallucinations -Continue Aricept (12) Hypothyroid: Plan: Continue levothyroxine (13) DVT prophylaxis: Plan: on Apixaban CODE STATUS: DNR/DNI Admission and Anticipated Discharge Date Admission Date: March 30, 2022 Subjective Patient is seen and examined at bedside States feeling well today Offers no complaints Discussed with neurology No recurrence of seizure activity Denies chest pain, dyspnea, dizziness, nausea, abd pain Review of Systems Review of Systems: All systems reviewed & are unremarkable except as noted in Subjective Physical Exam Physical Exam: Physical Exam: Vitals signs as noted above General Appearance:Moderately built and nourished, no apparent distress Head: normocephalic, Atraumatic Eyes: normal inspection, EOMI Neck: supple, Trachea midline Respiratory/Chest: Normal breath sounds, CTA, No accessory muscle use Cardiovascular: S1, S2, No murmur Abdomen/GI:Soft, Non tender, Bowel sounds present Extremities/Musculoskeletal:normal inspection, Trace edema Neurologic/Psych:AAOX3, grossly no focal neurological deficits Skin: normal color, warm Results & Data Results & Data ([facility]) Vital Signs (Past 12 Hours) Vital Signs Temp Pulse Pulse Resp BP Pulse Ox O2 Del Method 04/11/22 15:09 60 04/11/22 15:06 36.7 C 60 18 112/65 93 Room Air 04/11/22 10:54 36.6 C 60 18 166/80 H 98 Room Air 04/11/22 07:39 36.7 C 60 18 145/66 H 94 Room Air (1) Dementia Dementia type: unspecified type (2) Hypothyroid Hypothyroidism type: unspecified Qualified Code(s): E03.9 - Hypothyroidism, unspecified
[2022-04-11] MEDS: ATORVASTATIN 40 MG TAB PO SCH (21:03)
[2022-04-11] MEDS: MONTELUKAST SODIUM 10 MG TABLET PO SCH (21:04)
[2022-04-12] MEDS: LEVOTHYROXINE SODIUM 100 MCG TABLET PO SCH (06:24)
[2022-04-12] MEDS: INSULIN ASPART PER UNIT SC SCH ×2 (08:00→12:10)
[2022-04-12] MEDS: APIXABAN 5 MG TABLET PO SCH (08:05)
[2022-04-12] MEDS: LANTUS PER UNIT CHARGE SQ SCH (08:05)
[2022-04-12] MEDS: PREGABALIN 50 MG CAP PO SCH (08:05)
[2022-04-12] MEDS: SPIRONOLACTONE 25 MG TAB PO SCH (08:05)
[2022-04-12] MEDS: LOSARTAN POTASSIUM 50 MG TAB PO SCH (08:06)
[2022-04-12] MEDS: METOPROLOL SUCC 50MG EXT REL TAB PO SCH (08:06)
[2022-04-12] MEDS: dilTIAZem ER 180 MG CAPCR PO SCH (08:06)
[2022-04-12] MEDS: SERTRALINE HCL 100 MG TABLET PO SCH (08:06)
[2022-04-12] MEDS: hydrALAZINE 10 MG TAB PO SCH ×2 (08:06→12:07)
[2022-04-12] MEDS: DIVALPROEX EXTENDED RELEASE 500 MG TAB PO SCH (08:07)
[2022-04-12] MEDS: FLUTICASONE FUROATE 200MCG 14 PUFFS/INHALER INH SCH (08:07)
[2022-04-12] MEDS: UMECLIDINIUM/VILANTEROL 62.5/25MCG 7 PUFFS/INHALER INH SCH (08:07)
[2022-04-12] MEDS: PANTOprazole 40 MG TAB PO SCH (08:07)
[2022-04-12] MEDS: DONEPEZIL HCL 5 MG TAB PO SCH (08:07)
[2022-04-12] MEDS: ASPIRIN 81 MG CHEW PO SCH (08:12)
--- NOTE | 2022-04-12 11:37 | Hospitalist Progress Note ---
Date of Service April 12, 2022 Assessment & Plan (1) Seizure-like activity: Plan: Presumed Seizure DD:Conversion disorder CT head:No acute intracranial abnormality. Atrophy and microvascular ischemic changes. EEG: EEG was normal during wakefulness and drowsiness. No focal abnormalities, potentially epileptogenic discharges, or abnormal slow activity was seen. in addition, she had jerking leg movements with out electrocerebral accompaniment. Seizure, fall precautions Advised Psychiatry eval:Patient refused Appreciate Neurology Input Started on Depakote 500mg ER once daily Ativan PRN Will need Depakote level checked in 2 weeks Advised to follow up with Neurology in 3 to 4 weeks. (2) Hypertensive urgency: Plan: Hypertensive urgency Continue diltiazem, metoprolol, losartan, spironolactone Increased hydralazine to 40 mg 4 times daily Monitor BP (3) Chest pain: Plan: Chest pain secondary to Afib w/ RVR , HTN ECHO showed no wall motion abnormality Pacemaker Interrogation requested Resolved (4) Atrial fibrillation: Plan: H/O Paroxysmal atrial fibrillation. Spontaneously converted to sinus S/P Pacemaker present Continue diltiazem, metoprolol and Eliquis (5) Hypokalemia: Plan: Resolved Monitor (6) Acute kidney injury superimposed on chronic kidney disease: Plan: Baseline Cr ~ 1 Cr 1.4>1.2 Monitor renal function Avoid Nephrotoxic agents as able Monitor (7) Hyperlipidemia: Plan: Continue Atorvastatin (8) Diabetes mellitus: Plan: HbA1c 6.5 Continue insulin per protocol Monitor BGs (9) Gastroesophageal reflux: Plan: continue PPI (10) Depression: Plan: Continue Zoloft Patient refuses psychiatry evaluation (11) Dementia: Plan: -Mild to moderate with history of auditory and visual hallucinations -Continue Aricept (12) Hypothyroid: Plan: Continue levothyroxine (13) DVT prophylaxis: Plan: on Apixaban CODE STATUS: DNR/DNI Disposition SNF Admission and Anticipated Discharge Date Admission Date: March 30, 2022 Subjective Patient is seen and examined at bedside Doing well, No complaints No events overnight Denies chest pain, dyspnea, dizziness, nausea, abd pain Plan to discharge to rehab facility today Review of Systems Review of Systems: All systems reviewed & are unremarkable except as noted in Subjective Physical Exam Physical Exam: Physical Exam: Vitals signs as noted above General Appearance:Moderately built and nourished, no apparent distress Head: normocephalic, Atraumatic Eyes: normal inspection, EOMI Neck: supple, Trachea midline Respiratory/Chest: Normal breath sounds, CTA, No accessory muscle use Cardiovascular: S1, S2, No murmur Abdomen/GI:Soft, Non tender, Bowel sounds present Extremities/Musculoskeletal:normal inspection, Trace edema Neurologic/Psych:AAOX3, grossly no focal neurological deficits Skin: normal color, warm Results & Data Results & Data ([facility]) Vital Signs (Past 12 Hours) Vital Signs Temp Pulse Pulse Resp BP BP Pulse Ox 04/12/22 10:31 60 04/12/22 07:30 36.5 C 73 16 158/73 H 97 04/12/22 03:47 36.5 C 60 18 162/68 H 94 O2 Del Method 04/12/22 10:31 04/12/22 07:30 04/12/22 03:47 Room Air (1) Dementia Dementia type: unspecified type (2) Hypothyroid Hypothyroidism type: unspecified Qualified Code(s): E03.9 - Hypothyroidism, unspecified
--- NOTE | 2022-04-12 11:57 | Discharge Summary ---
Date of Service April 12, 2022 Admission HPI Per Admitting Provider This is a 77 yo F with PMhx of HTN, chronic CHF, s/p pacemaker insertion, atrial fibrillation on Eliquis, hx of 3 cardiac stents around age 40, hx of smoking 1ppd and quit when cardiac stents were placed, DM II on insulin, neuropathy, hiatal hernia, hypothyroidism, CKD stage III, seizure disorder, auditory and visual hallucinations. Pt was recently hospitalized at [facility] from Mar 06 to Mar 13 2022 for altered mental status and confusion with worsening auditory and visual hallucinations. While admitted, she was found to have a chest hematoma while on eliquis and underwent evacuation of this hematoma on 03/16 which measured approximately 4 x 1 x 3 cm, and was discharged to [facility] for rehab. Prior to this hospitalization she was living at home, in [place]. This morning she was participating in PT for a few minutes and then felt chest heaviness, which she has previously felt before whenever her heart goes into afib. Once in EMS, she was administered nitro and full dose aspirin. Currently she does not have any chest pain or discomfort. She states she previously wore O2 HS, but not during her hospitalization and at [facility] has not needed it. Pt has issues with bloating secondary to her hiatal hernia. She admits to having some burning like indigestion this morning along with chest discomfort. Since having aspirin and nitroglycerine she feels better and pain is relieved. She feels this is just like having afib before and previously has "breathed through it" She moves her bowels every other day and denies urinary complaints. She walks with use of a walker. Pt recalls taking her medications today. Discussed with nursing at [facility]. Admission Exam Per Admitting Provider Physical Exam Physical Exam: General: awake, alert, no apparent distress, + knows she is in a hospital, initially thought she was in [facility], Head: Normocephalic, atraumatic ENT: PERRL, EOMI, no pharyngeal exudate, mucous membranes moist Chest: Clear to auscultation, on room air, no adventitious breath sounds, chest wall scar healing, no surrounding signs of infection Cardiac: +Paced, some intermittent PVCs, HR in mid 60s at bedside, no murmur, no JVD, normal peripheral pulses, good capillary refill Abdominal: NABS x 4 quadrants, soft, nondistended, nontender to palpation, no rebound or guarding Extremities: + Dry skin Normal inspection, no peripheral edema or erythema, calfs nontender to palpation Psych: Normal mood and affect Neuro: AAO x 3, strength intact bilaterally and rated 4/5, no motor deficits, speech is clear, no peripheral sensory deficits Principal Diagnosis Hypertensive urgency Paroxysmal atrial fibrillation Seizure like activity Discharge Data Allergies Allergy/AdvReac Type Severity Reaction Status Date / Time enalaprilat [From Vasote] Allergy Mild Redness of Verified 03/30/22 14:49 Skin Consultations 03/30/22 13:53 ED Decision to Admit Stat 03/30/22 15:10 HIM [Consult Health Information Management] Stat 03/30/22 16:14 Consult Cardiology Routine 04/10/22 07:39 Consult Neurology Routine Procedures Performed Laboratory Results WBC 8.22 K/ul (4.8-10.8) 04/09/22 05:22 RBC 4.20 M/uL (3.93-5.22) 04/09/22 05:22 Hgb 12.7 g/dl (12.0-16.0) 04/09/22 05:22 Hct 38.4 % (34.1-44.9) 04/09/22 05:22 MCV 91.4 fL (80.0-100.0) 04/09/22 05:22 MCH 30.2 pg (25.0-34.0) 04/09/22 05:22 MCHC 33.1 g/dL (32.0-36.0) 04/09/22 05:22 RDW Std Deviation 51.0 fL (36.4-46.3) H 04/09/22 05:22 RDW Coeff of Jairon 15.3 % (11.5-14.5) H 04/09/22 05:22 Plt Count 208 K/uL (130-400) 04/09/22 05:22 MPV 11.0 fL (9.4-12.3) 04/09/22 05:22 Immature Gran % (Auto) 0.5 % 03/30/22 10:15 Neut % (Auto) 74.5 % 03/30/22 10:15 Lymph % (Auto) 13.9 % 03/30/22 10:15 Pacific % (Auto) 8.0 % 03/30/22 10:15 Eos % (Auto) 2.6 % 03/30/22 10:15 Baso % (Auto) 0.5 % 03/30/22 10:15 Neut # (Auto) 4.67 K/uL (1.4-6.5) 03/30/22 10:15 Lymph # (Auto) 0.87 K/uL (1.2-3.4) L 03/30/22 10:15 Pacific # (Auto) 0.50 K/uL (0.24-0.82) 03/30/22 10:15 Eos # (Auto) 0.16 K/uL (0-0.50) 03/30/22 10:15 Baso # (Auto) 0.03 K/uL (0-0.2) 03/30/22 10:15 Immature Gran # (Auto) 0.03 K/uL (0.00-0.02) H 03/30/22 10:15 PT 12.1 Seconds (9.0-12.0) H 03/31/22 05:38 INR 1.1 (0.9-1.1) 03/31/22 05:38 APTT 28.7 Seconds (21.0-31.0) 03/30/22 10:15 PTT Ratio 1.0 03/30/22 10:15 ABG pH 7.55 (7.35-7.45) H* 04/02/22 00:34 ABG pCO2 27 mmHg (35-46) L 04/02/22 00:34 ABG pO2 83 mmHg (80-95) 04/02/22 00:34 ABG HCO3 24 mmol/L (19-24) 04/02/22 00:34 ABG O2 Saturation 98.0 % (90-95) H 04/02/22 00:34 ABG Base Excess 2.3 mEq/L (-9-1.8) H 04/02/22 00:34 Patrick Test Pos (Pos) 04/02/22 00:34 VBG pH 7.45 (7.36-7.41) H 03/30/22 11:25 VBG pCO2 40 mmHg (38-50) 03/30/22 11:25 VBG pO2 36 mmHg 03/30/22 11:25 VBG HCO3 28 mmol/L 03/30/22 11:25 VBG O2 Saturation 65.3 % 03/30/22 11:25 VBG Base Excess 3.5 mEq/L 03/30/22 11:25 Oxygen Given 2L 04/02/22 00:34 Sodium 138 mmol/L (136-145) 04/10/22 07:52 Potassium 4.3 mmol/L (3.5-5.1) 04/10/22 07:52 Chloride 107 mmol/L (98-107) 04/10/22 07:52 Carbon Dioxide 24 mmol/L (21-32) 04/10/22 07:52 Anion Gap 7 (3-11) 04/10/22 07:52 BUN 40 mg/dl (6-23) H 04/10/22 07:52 Creatinine 1.21 mg/dl (0.6-1.2) H 04/10/22 07:52 Est Cr Clr Drug Dosing 39.4 ml/min 04/10/22 07:52 Est GFR ( Amer) 50.0 ml/min 04/10/22 07:52 Est GFR (Non-Af Amer) 43.1 ml/min 04/10/22 07:52 BUN/Creatinine Ratio 33.1 (10-20) H 04/10/22 07:52 Glucose 175 mg/dl (70-99(Fasting)) H 04/10/22 07:52 POC Glucose 138 mg/dl (70-99) H 04/12/22 11:22 Estimat Average Glucose 140 mg/dl 03/31/22 05:38 Hemoglobin A1c 6.5 % (4.5-5.6) H 03/31/22 05:38 Calcium 10.1 mg/dl (8.5-10.1) 04/10/22 07:52 Phosphorus 3.0 mg/dl (2.5-4.9) 04/04/22 05:40 Magnesium 2.1 mg/dl (1.7-2.4) 04/10/22 07:52 Total Bilirubin 0.5 mg/dl (0.2-1.0) 04/10/22 07:52 AST 17 U/L (13-39) 04/10/22 07:52 ALT 12 U/L (7-52) 04/10/22 07:52 Alkaline Phosphatase 65 U/L (34-104) 04/10/22 07:52 Troponin I High Sens 23.0 pg/ml (0-14) H 03/30/22 22:49 Total Protein 7.0 gm/dl (6.0-8.3) 04/10/22 07:52 Albumin 4.0 gm/dl (3.4-5.0) 04/10/22 07:52 Globulin 3.0 gm/dl (2.5-4.0) 04/10/22 07:52 Albumin/Globulin Ratio 1.3 (0.9-2) 04/10/22 07:52 Triglycerides 186 mg/dl (0-150) H 03/31/22 05:38 Cholesterol 156 mg/dl (0-200) 03/31/22 05:38 LDL Cholesterol, Calc 83 mg/dl 03/31/22 05:38 VLDL Cholesterol, Calc 37 mg/dl (0-30) H 03/31/22 05:38 HDL Cholesterol 36 mg/dl 03/31/22 05:38 Cholesterol/HDL Ratio 4.3 (0-5) 03/31/22 05:38 Lipase 44 U/L (11-82) 03/30/22 10:15 TSH 2.785 uIu/ml (0.300-4.500) 03/30/22 16:20 Nasal Screen MRSA (PCR) Negative (Negative) 03/30/22 18:20 SARS-CoV-2, RNA, NAAT NEGATIVE (NEGATIVE) 03/30/22 11:25 Impressions Chest CTA 03/30/22 12:15 CT ANGIOGRAM OF THE CHEST CLINICAL HISTORY: Atypical chest pain. COMPARISON STUDY: Chest x-ray dated 03/30/2022. TECHNIQUE: Following the IV administration of 112 cc of Optiray 320, CT angiogram of the chest was performed from the upper abdomen to the thoracic inlet utilizing the pulmonary embolus protocol. Images are reviewed in the axial, sagittal, and coronal planes. 3-D MIPS images are created and assessed. IV contrast was administered without complication. A dose lowering technique was utilized adhering to the principles of ALARA. CT DOSE: 755.19 mGy.cm FINDINGS: Thyroid: Mildly enlarged and heterogeneous. Thoracic aorta: There is atherosclerotic calcification of the thoracic aorta, which is normal in caliber and demonstrates standard 3-vessel arch anatomy. No dissection is seen. Pulmonary vasculature: The main pulmonary arteries are dilated suggesting pulmonary hypertension. There are no filling defects identified in main, lobar, or segmental pulmonary branches to suggest pulmonary embolus. Heart: A cardiac pacemaker is present in the left chest wall. The heart is enlarged and without pericardial effusion. The coronary arteries are densely calcified. Lungs and pleural spaces: Evaluation of the lung parenchyma is degraded by motion artifact. Emphysema is noted. The trachea and central airways are clear. Scarring/atelectasis at the lung bases. Airspace consolidation consistent with pneumonia or pleural effusion is identified. Mediastinum: There is no mediastinal lymphadenopathy. Ana Lilia: Clear. Axillae: There is no axillary lymphadenopathy. Upper abdomen: Partially visualized upper abdominal viscera is within normal limits. Skeletal structures: The skeletal structures are osteopenic. Degenerative change and hyperkyphosis is noted in the thoracic spine. There are chronic-appearing compression deformities of T2, T3, and T4. No lytic or blastic bony lesions are seen. IMPRESSION: 1. There is no evidence of pulmonary embolus in the main, lobar, or segmental pulmonary arteries. 2. Cardiomegaly and cardiac pacemaker. 3. Emphysema. 4. No airspace consolidation or pleural effusion is identified. 5. Additional findings as above. ACT 112: Negative or not required by law. Electronically signed by: Bryson Godoy M.D. 03/30/2022 12:56 PM Chest X-Ray 04/02/22 10:04 XR chest 1V portable CLINICAL HISTORY: episodes of shortness of breath COMPARISON STUDY: Chest radiograph and chest CT March 30, 2022. FINDINGS: Left subclavian pacer is in place. No pneumothorax or pleural effusion is present. Cardiomediastinal silhouette is stable. There is no evidence for pulmonary edema. Mild bibasilar opacities favor atelectasis. IMPRESSION: No acute cardiopulmonary findings. This interval change in appearance of the chest. ACT 112: Negative or not required by law. Electronically signed by: Tommie Griffin M.D. 04/02/2022 10:[address] 04/10/22 07:29 CT SCAN OF THE BRAIN WITHOUT IV CONTRAST CLINICAL HISTORY: Change in mental status. COMPARISON STUDY: CT of the brain dated 04/07/2022. TECHNIQUE: Unenhanced axial CT scan of the brain is performed from the vertex to the skull base. A dose lowering technique was utilized adhering to the principles of ALARA. CT DOSE: 821.00 mGycm FINDINGS: Brain parenchyma: There is age-related involutional change noting mild subcortical and periventricular microangiopathic disease. There is no hemorrhage, mass effect, or evidence of acute territorial ischemia by CT criteria. Dubon-white matter differentiation is preserved. No extra-axial fluid collection is seen. Ventricles, sulci, cisterns: Prominent secondary to involutional change. Intracranial vasculature: There is atherosclerotic calcification of the cav ernous carotid and vertebral arteries. Calvarium: Unremarkable. Sinuses and mastoids: The paranasal sinuses are clear. The mastoid air cells are well pneumatized. Orbits: The bony orbits are grossly intact. There are bilateral ocular lens implants. IMPRESSION: There is no hemorrhage, mass effect, or evidence of acute territorial ischemia by CT criteria. ACT 112: Negative or not required by law. Electronically signed by: Bryson Godoy M.D. 04/10/2022 7:46 AM Ordered Studies 03/30/22 12:15 CT angio chest PE protocol Stat 04/07/22 15:38 CT head/brain wo con Stat 04/10/22 07:29 CT head/brain wo con Stat Hospital Course (1) Seizure-like activity: Presumed Seizure DD:Conversion disorder CT head:No acute intracranial abnormality. Atrophy and microvascular ischemic changes. EEG: EEG was normal during wakefulness and drowsiness. No focal abnormalities, potentially epileptogenic discharges, or abnormal slow activity was seen. in addition, she had jerking leg movements with out electrocerebral accompaniment. Seizure, fall precautions Advised Psychiatry eval:Patient refused Appreciate Neurology Input Started on Depakote 500mg ER once daily Ativan PRN Will need Depakote level checked in 2 weeks Advised to follow up with Neurology in 3 to 4 weeks. (2) Hypertensive urgency: Hypertensive urgency Continue diltiazem, metoprolol, losartan, spironolactone Increased hydralazine to 40 mg 4 times daily Monitor BP (3) Chest pain: Chest pain secondary to Afib w/ RVR , HTN ECHO showed no wall motion abnormality Pacemaker Interrogation requested Resolved (4) Atrial fibrillation: H/O Paroxysmal atrial fibrillation. Spontaneously converted to sinus S/P Pacemaker present Continue diltiazem, metoprolol and Eliquis (5) Hypokalemia: Resolved Monitor (6) Acute kidney injury superimposed on chronic kidney disease: Baseline Cr ~ 1 Cr 1.4>1.2 Monitor renal function Avoid Nephrotoxic agents as able Monitor (7) Hyperlipidemia: Continue Atorvastatin (8) Diabetes mellitus: HbA1c 6.5 Continue insulin per protocol Monitor BGs (9) Gastroesophageal reflux: continue PPI (10) Depression: Continue Zoloft Patient refuses psychiatry evaluation (11) Dementia: -Mild to moderate with history of auditory and visual hallucinations -Continue Aricept (12) Hypothyroid: Continue levothyroxine (13) DVT prophylaxis: on Apixaban CODE STATUS: DNR/DNI Disposition SNF Total Time Total Time Spent Total Time Spent (In Minutes): 45 minutes Discharge Plan Discharge Items Patient Disposition: Transfer [facility] Reason For Visit: CHEST PAIN, ATRIAL FIB, HYPOKALEMIA Discharge Diagnosis: Hypertensive urgency Paroxysmal atrial fibrillation Seizure like activity Activity: Per Instructions section Exercise/Sports: Gradually increase as tolerated Non-emergency contact: Primary Care Provider, Apprenticeship Representative and Neurologist Call non-emergency contact if: you have any medication questions, your symptoms worsen and your pain is concerning for you Follow-up/Referrals: Bayron Shah [Primary Care Provider] - Diet: Carb Consistent or DM2 and Heart Healthy Addtl Attending Provider Instructions: Follow-up with your primary care physician in 1 week Follow-up with your label fuser tender Dr. Lazaro in 2 to 4 weeks. Follow-up with your neurologist in 3-4 weeks --Get Blood Test ( trough Depakote level ) in 2 weeks and follow-up with neurologist for further adjustment of your medications. Seek immediate medical attention if your symptoms reoccur or worsen Please take all medications as instructed on discharge list below. Please call if you have any questions or problems. You can reach a [facility] hospitalist on duty at [facility] 24 hours a day by calling [phone] Pending Studies at Discharge: No Stand-Alone Forms: My [facility] Skilled Items Patient informed of condition?: Yes DNR: Yes Discharge Level of Care: Skilled Communicable Disease: No Discharge Prognosis: Stable Lines: None Urinary Catheter: No Medications and DC Order Prescriptions: New losartan 50 mg Tablet 50 mg PO DAILY Qty: 30 0RF spironolactone 25 mg Tablet 25 mg PO QAM Qty: 30 0RF divalproex 500 mg Tablet Extended Release 24 Hr 500 mg PO DAILY Qty: 30 1RF hydralazine 50 mg tablet 50 mg PO TID Qty: 90 0RF Continued furosemide 40 mg tablet 40 mg PO DAILY PRN (Reason: leg edema) atorvastatin 40 mg Tablet 40 mg PO HS donepezil 5 mg tablet 5 mg PO DAILY sertraline [Zoloft] 100 mg Tablet 100 mg PO DAILY levothyroxine 100 mcg tablet 100 mcg PO DAILY ferrous sulfate 325 mg (65 mg iron) tablet 325 mg PO DAILY nitroglycerin 0.4 mg tablet, sublingual 0.4 mg sublingual DIRECTED omeprazole 20 mg capsule,delayed release(DR/EC) 20 mg PO DAILY aspirin 81 mg Tablet,Chewable 81 mg PO DAILY montelukast [Singulair] 10 mg Tablet 10 mg PO HS albuterol sulfate [ProAir HFA] 90 mcg/actuation Hfa Aerosol Inhaler 1 puff INHALATION QID PRN (Reason: Shortness Of Breath) Humalog U-100 Insulin 100 unit/mL Cartridge 1 sliding scale dose SUBCUT USEASDIRECTD diltiazem HCl 180 mg tablet extended release 24 hr 180 mg PO BID pregabalin [Lyrica] 50 mg Capsule 50 mg PO BID Calcium 600 + Minerals 600 mg calcium- 200 unit Tablet 1 tab PO DAILY insulin glargine [Lantus Solostar U-100 Insulin] 100 unit/mL (3 mL) Insulin Pen 10 unit SUBCUT QAM Eliquis 5 mg tablet 5 mg PO BID Breztri Aerosphere 160-9-4.8 mcg/actuation HFA aerosol inhaler 2 inh INHALATION BID Changed metoprolol succinate 50 mg tablet extended release 24 hr 50 mg PO BID Qty: 60 0RF olanzapine [Zyprexa] 2.5 mg Tablet 2.5 mg PO HS PRN (Reason: agitation) Qty: 1 0RF Discontinued hydralazine 10 mg Tablet 20 mg PO QID potassium chloride 10 mEq Capsule, Extended Release 10 meq PO DAILY losartan-hydrochlorothiazide 50-12.5 mg tablet 1 tab PO DAILY Discharge Orders: Discharge Order (Routine); Ordered 04/12/22 Ordered By: Robson Mack/Other Patient Handouts: Managing Type 2 Diabetes Admission Data Admit Date/Time: 03/30/22 14:32 Attending Provider: Vangala,Robson K. Admit Provider: Eb Trujillo Primary Care Provider: Bayron Shah Other Providers: Pablo, ; Alexandria Wagner ; Eb Trujillo ; Edgar Lazaro ; Denny Haskins
[2022-04-12] MEDS ORDERED: INFLUENZA VIRUS QUAD VACCINE 0.5 ML SYR IM ONE (12:10)
[2022-04-12] MEDS ORDERED: INFLUENZA VACCINE HIGH DOSE PF 65+ 0.7 ML SYR IM ONE (12:30)
--- NOTE | 2022-04-12 16:38 | Electrocardiogram Report ---
Test Reason : Blood Pressure : / mmHG Vent. Rate : 060 BPM Atrial Rate : 060 BPM P-R Int : 228 ms QRS Dur : 090 ms QT Int : 450 ms P-R-T Axes : 086 -11 012 degrees QTc Int : 450 ms Atrial-paced rhythm with prolonged AV conduction Abnormal ECG When compared with ECG of 31-MAR-2022 13:16, No significant change was found Confirmed by Raul Mckeon ([id number]) on 04/12/2022 4:38:27 PM Referred By: REFERRED SELF Confirmed By:Raul Mckeon
== END 2022-04-12 13:28 ==
LOC: ED 10:03 → SUATTDRO 14:32 → INTOOBSV 14:32 → 4W 14:32 → 3E 04-06 19:28 → 2S 04-07 15:43